=== PATIENT | male | born 1970 | race Caucasian/White ===

== ENCOUNTER 2018-10-01 15:55 | Emergency (ER) | payer MEDICAID, SELFPAY ==
[2018-10-01 16:06] VITALS: BP 121/79; PULSE 87; RESP 18; TEMP 36.9
--- NOTE | 2018-10-01 16:52 | W.ED.GENAD ---
Discharge Plan Disposition Patient Disposition: HOME Condition: Improving Discharge Details Chief Complaint: Laceration Clinical Impression: Laceration of right hand Reason For Visit: right hand LAC Primary Care Provider: Ira Pizarro ED Provider: Yuriy Schaefer Home Meds and New Rx's Prescriptions: Continue fluticasone-salmeterol [Advair Diskus] 250-50 mcg/dose blister with device 1 inh Inhalation BID Qty: 60 RF: 3 ipratropium-albuterol 0.5 mg-3 mg(2.5 mg base)/3 mL solution for nebulization 3 ml Inhalation Q4H PRN (Reason: shortness of breath or wheezing) Qty: 90 RF: 3 acetaminophen [Tylenol Extra Strength] 500 MG tablet 500 mg PO PRN RF: 0 albuterol sulfate [ProAir HFA] 8.5 GM HFA aerosol inhaler 2 puff Inhalation Q4H PRN 30 Days Qty: 1 RF: 11 nebulizers [Altera Nebulizer] 1 EACH misc 1 ea Miscellaneous PRN Qty: 1 RF: 0 ibuprofen [Advil] 200 MG tablet 800 mg PO PRN PRNRF: 0 Discharge Instructions Instructions: Laceration (ED) Additional Instructions: Keep bandage on for the next 48 hours and after then keep wound clean and dry. You may clean wound with mild soap and water and return in 10 days for suture removal. Return immediately to the emergency department for any signs of infection such as redness, purulent drainage, significant swelling. Referrals: [facility] Emergency Dept. [Outside] (Return to emergency department in 10 days for suture removal) Discharge Data Discharge Date/Time-TO BE ENTERED AT DEPARTURE: 10/01/18 17:24 Medical Decision Making Patient presenting to the emergency department for chief complaint of right hand laceration. Patient states that he was cleaning a metallic putty knife when he accidentally lacerated his right hand. Patient denies any other injury or trauma and states up-to-date tetanus. Tetanus status was verified and was up-to-date. Patient has normal function, sensation, cap refill and strength to the extremity and laceration appears just to be into the subcutaneous tissue with a moderate amount of bleeding but otherwise no other significant findings were noted. Patient gave verbal consent for laceration repair and see laceration note for procedure. Wound was explored to base in bloodless field and no evidence of foreign body was noted and copious irrigation was utilized. Which watch for any signs of infection and return immediately if these occur otherwise to follow-up for suture removal in 10 days. HPI General Mode of arrival: ambulatory. Date/Time Provider Initiated Documentation: 10/01/18 16:18. Limitations to Documentation: no limitations. Information obtained by: patient and RN notes reviewed. History of Present Illness 48 year old M presents to the emergency department with the chief complaint of right had laceration, described as moderate, with intensity rated at 7. Quality is described as sharp, and is localized to the right and upper extremity. Patient reports no radiation. Patient started experiencing this minute(s) (30) and it has been constant. No relieving factors improve symptom(s), No exacerbating factors reported . Patient notes no other symptoms.. Patient did receive the following treatments prior to arrival, none Related Data Home Medications Medication Instructions Recorded Confirmed ibuprofen [Advil] 800 mg PO PRN PRN 03/28/15 10/01/18 acetaminophen [Tylenol Extra 500 mg PO PRN 04/15/15 10/01/18 Strength] albuterol sulfate [ProAir HFA] 2 puff INHALATION Q4H PRN 30 Days 03/31/18 10/01/18 #1 inhaler nebulizers [Altera Nebulizer] #1 ea 05/19/18 08/18/18 fluticasone 250 mcg-salmeterol 50 1 inh INHALATION BID #60 each 07/14/18 10/01/18 mcg/dose blistr powdr for inhalation ipratropium-albuterol 0.5 mg-3 3 ml INHALATION Q4H PRN #90 ml 07/14/18 10/01/18 mg(2.5 mg base)/3 mL nebulization soln Previous Rx's Medication Instructions Recorded albuterol sulfate [ProAir HFA] 2 puff INHALATION Q4H PRN 30 Days 03/31/18 #1 inhaler nebulizers [Altera Nebulizer] #1 ea 05/19/18 fluticasone 250 mcg-salmeterol 50 1 inh INHALATION BID #60 each 07/14/18 mcg/dose blistr powdr for inhalation ipratropium-albuterol 0.5 mg-3 3 ml INHALATION Q4H PRN #90 ml 07/14/18 mg(2.5 mg base)/3 mL nebulization soln Allergies Allergy/AdvReac Type Severity Reaction Status Date / Time No Known Allergies Allergy Verified 10/01/18 16:10 General Stated Complaint: Laceration EDILIA: 3 Review of Systems Cardiovascular Denies syncope and Denies lightheadedness Musculoskeletal Denies deformity, Denies limited range of motion and Denies numbness Integumentary/Breasts Reports as per HPI Neurologic Denies syncope and Denies numbness PFSH COPD (chronic obstructive pulmonary disease) Tobacco use Family History Mother Hepatitis Substance abuse Father Lung disease Alcohol abuse left hand laceration (05/20/79) Family History Mother Hepatitis Substance abuse Father Lung disease Alcohol abuse Medical History COPD (chronic obstructive pulmonary disease) Tobacco use Social History adopted: No foster care: No housing: house lives independently: Yes number of children: 2 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, 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 pets and animals: Yes pets and animals: cat(s) Smoking/Tobacco Use Status: Current-Occasional tobacco type: cigarettes alcohol intake: current alcohol intake frequency: holidays/special occasions only Alcohol type: hard liquor substance use type: marijuana seatbelt use: always working smoke detector in home: Yes fire extinguisher in home: Yes carbon monox detector in home: No Surgical History left hand laceration (05/20/79) Social History adopted: No foster care: No housing: house lives independently: Yes number of children: 2 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, 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 pets and animals: Yes pets and animals: cat(s) Smoking/Tobacco Use Status: Current-Occasional tobacco type: cigarettes alcohol intake: current alcohol intake frequency: holidays/special occasions only Alcohol type: hard liquor substance use type: marijuana seatbelt use: always working smoke detector in home: Yes fire extinguisher in home: Yes carbon monox detector in home: No Exam Const General: cooperative and no acute distress Orientation: alert, awake and oriented x3 Limitations: mental status not altered Resp Effort & Inspection: normal respiratory effort and able to speak in complete sentences Cardio Rate: regular rate Rhythm: regular rhythm Neuro General: alert, awake, oriented x3, gait normal, tone normal, moves all extremities, normal light touch, pain and propioception and no focal motor deficits Motor: no movement abnormalities noted Sensory Exam: no sensory deficits noted Extrem General: normal exam except as noted Right upper extremity: hand Details: normal capillary refill, neuromotor exam normal, neurosensory exam normal, tendon exam normal, normal ROM of fingers, no swelling and laceration (Dorsal aspect in between thumb and second metacarpal); no foreign bodies Course Vital Signs Temperature 36.9 C 10/01/18 16:06 Pulse 87 10/01/18 16:06 Respiratory Rate 18 10/01/18 16:06 Blood Pressure 121/79 10/01/18 16:06 Temperature 36.9 C 10/01/18 16:06 Temperature Source Temporal Artery Scan 10/01/18 16:06 Pulse 87 10/01/18 16:06 Respiratory Rate 18 10/01/18 16:06 Blood Pressure 121/79 10/01/18 16:06 Blood Pressure Position Sitting 10/01/18 16:06 Oxygen Delivery Method Room Air 10/01/18 16:06 Oxygen Flow Rate 0 10/01/18 16:06 Pain Level 3 10/01/18 16:06 Procedures Laceration Laceration 1: Site: hand Side (If applicable): right Size (cm): 3 Description: linear Depth: simple, single layer Local Anesthetic: Lidocaine 1% Amount of anesthesia used (mL): 5 Pre-repair: wound explored, irrigated extensively and deep structures intact Skin layer closed with: nylon Size (cm): 4-0 Number of sutures: 4 Technique: simple, interrupted
== END 2018-10-01 17:24 | disposition home or self-care (01) ==
LOC: ER 17:41
PROVIDERS: Emergency Provider Nurse Practitioner Family; PCP Nurse Practitioner Family
DX: S61.411A Laceration without foreign body of right hand, initial encounter (principal); W26.0XXA Contact with knife, initial encounter; J44.9 Chronic obstructive pulmonary disease, unspecified; F17.210 Nicotine dependence, cigarettes, uncomplicated
CPT/HCPCS: 12002

== ENCOUNTER 2018-10-11 14:01 | Emergency (ER) | payer MEDICAID, SELFPAY ==
[2018-10-11 14:10] VITALS: BP 127/64; PULSE 85; RESP 14; TEMP 37.1; O2SAT 95
--- NOTE | 2018-10-11 14:23 | ED.GENADUL_ITS ---
Discharge Plan Disposition Patient Disposition: HOME Condition: Good Discharge Details Chief Complaint: SutureRem Clinical Impression: Visit for suture removal Primary Care Provider: Ira Pizarro ED Provider: Rosalio Rudolph Home Meds and New Rx's Prescriptions: No Action fluticasone-salmeterol [Advair Diskus] 250-50 mcg/dose blister with device 1 inh Inhalation BID Qty: 60 RF: 3 ipratropium-albuterol 0.5 mg-3 mg(2.5 mg base)/3 mL solution for nebulization 3 ml Inhalation Q4H PRN (Reason: shortness of breath or wheezing) Qty: 90 RF: 3 acetaminophen [Tylenol Extra Strength] 500 MG tablet 500 mg PO PRN RF: 0 albuterol sulfate [ProAir HFA] 8.5 GM HFA aerosol inhaler 2 puff Inhalation Q4H PRN 30 Days Qty: 1 RF: 11 nebulizers [Altera Nebulizer] 1 EACH misc 1 ea Miscellaneous PRN Qty: 1 RF: 0 ibuprofen [Advil] 200 MG tablet 800 mg PO PRN PRNRF: 0 Discharge Instructions Instructions: Care For Your Stitches (ED) Additional Instructions: Please come back in the next 4-5 days for reevaluation and reassessment for potential suture removal. If you notice any significant redness, drainage, fever chills, pain, or swelling please return immediately for reevaluation. Please continue to keep the area dry and clean. Please keep the bandage at all times. Referrals: Ira Pizarro, [employer] [Primary Care Provider] - Medical Decision Making This is a 48-year-old male with a past medical history of COPD, no history of diabetes who presents for laceration/suture removal. He had 4 sutures placed 10 days ago, since then he has been doing well. He denies any redness, fever or chills, he did have a minimal amount of drainage that he was able to squeeze out yesterday, but none since then. He denies any pain, physical exam demonstrates normal strength and sensation and movement. Unfortunately for 3 of the distal sutures he does show evidence of a lack of complete wound edge reapproximation. There is certainly close together however they do not appear to be completely recently to 5. We will keep the sutures in at this time. There is no evidence of infection, no fluctuance, no purulent dis charge at this time and with no surrounding erythema I do not think that there is an indication for antibiotics. We did a apply Steri-Strips for continued wound support between the sutures. We discussed red flags which to return including the importance of following up in the next 4-5 days back here in the ED for removal of sutures. I have extensively reviewed the treatment plan and discharge instructions with the patient. I have addressed all patient concerns at this time. The patient was made aware of what symptoms to monitor for that would warrant a return to the emergency department. Discussed the plan with the patient, they demonstrate verbal understanding and agreement with our assessment and plan at this time. HPI General Date/Time Provider Initiated Documentation: 10/11/18 14:06 . HPI Narrative: This is a 48-year-old male with a past medical history of COPD, who presents today for evaluation of suture removal. 10 days ago the patient cut his right dominant hand over the thenar eminence on the dorsal aspect. Tetanus is up-to-date. 4 simple interrupted sutures are placed is instructed to come back for reevaluation in 7-10 days. It is been 10 days, and he is coming in for reevaluation. The patient did notice a very small amount of purulent drainage that he was able to exude from the proximal component, but denies any redness, fever chills, or pain. He has had no drainage since then. 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 Patient denies any other aggravating or modifying factors. He has no other complaints at this time. Related Data Home Medications Medication Instructions Recorded Confirmed ibuprofen [Advil] 800 mg PO PRN PRN 03/28/15 10/01/18 acetaminophen [Tylenol Extra 500 mg PO PRN 04/15/15 10/01/18 Strength] albuterol sulfate [ProAir HFA] 2 puff INHALATION Q4H PRN 30 Days 03/31/18 10/01/18 #1 inhaler nebulizers [Altera Nebulizer] #1 ea 05/19/18 08/18/18 fluticasone 250 mcg-salmeterol 50 1 inh INHALATION BID #60 each 07/14/18 10/01/18 mcg/dose blistr powdr for inhalation ipratropium-albuterol 0.5 mg-3 3 ml INHALATION Q4H PRN #90 ml 07/14/18 10/01/18 mg(2.5 mg base)/3 mL nebulization soln Previous Rx's Medication Instructions Recorded albuterol sulfate [ProAir HFA] 2 puff INHALATION Q4H PRN 30 Days 03/31/18 #1 inhaler nebulizers [Altera Nebulizer] #1 ea 05/19/18 fluticasone 250 mcg-salmeterol 50 1 inh INHALATION BID #60 each 07/14/18 mcg/dose blistr powdr for inhalation ipratropium-albuterol 0.5 mg-3 3 ml INHALATION Q4H PRN #90 ml 07/14/18 mg(2.5 mg base)/3 mL nebulization soln Allergies Allergy/AdvReac Type Severity Reaction Status Date / Time No Known Allergies Allergy Verified 10/01/18 16:10 General Stated Complaint: SutureRem EDILIA: 5 Review of Systems Review of Systems All systems reviewed & are unremarkable except as noted in HPI and below PFSH Social History adopted: No foster care: No housing: house lives independently: Yes number of children: 2 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 3.ENT: Atraumatic external nose and ears. Moist MM. Neck: Symmetric, trachea midline, No thyromegaly. 4.CVS: +S1/S2, No murmurs or gallops. Peripheral pulses 2+ and equal in all extremities. Brisk capillary refill in all extremities. 5.RESP: Unlabored respiratory effort. Clear to auscultation bilaterally. No wheezes rales or rhonchi 6.GI: Soft, Nontender/Nondistended, No hepatosplenomegaly. No guarding or rebound. 7.MSK: Normocephalic/Atraumatic, Extremities w/o deformity or ttp No cyanosis or clubbing, Normal movement of all extremities. Normal strength for the thumb in abduction abduction flexion extension. Normal pincer yarn dumper. 8.Skin: Warm, Dry. No rashes or lesions. Patient's previous laceration site appears to be well healing. Therefore simple interrupted sutures in place. One single suture was removed, for the other 3 there appears to be a lack of complete wound edge reapproximation and adhesion. Minimal laxity is still present. We will hold off on removing the sutures. 9.Neuro: credit charge authorizer II-XII grossly intact. Sensation grossly intact, no focal neurologic deficits. Patient demonstrates good two-point discrimination distal to the laceration, no evidence of abnormality, or deficit. 10.Psych: (AAO) x3. Appropriate mood and affect Course Vital Signs Temperature 37.1 C 10/11/18 14:10 Pulse 85 10/11/18 14:10 Respiratory Rate 14 10/11/18 14:10 Blood Pressure 127/64 10/11/18 14:10 Pulse Oximetry 95 10/11/18 14:10 Temperature 37.1 C 10/11/18 14:10 Temperature Source Temporal Artery Scan 10/11/18 14:10 Pulse 85 10/11/18 14:10 Respiratory Rate 14 10/11/18 14:10 Respiratory Effort Non-Labored 10/11/18 14:14 Blood Pressure 127/64 10/11/18 14:10 Blood Pressure Position Sitting 10/11/18 14:10 Pulse Oximetry 95 10/11/18 14:10 Oxygen Delivery Method Room Air 10/11/18 14:10 Oxygen Flow Rate 0 10/11/18 14:10 Pain Level 0 10/11/18 14:10
== END 2018-10-11 14:26 | disposition home or self-care (01) ==
PROVIDERS: Emergency Provider Student in an Organized Health Care Education/Training Program; PCP Nurse Practitioner Family
DX: S61.411D Laceration without foreign body of right hand, subsequent encounter (principal); W26.0XXD Contact with knife, subsequent encounter; J44.9 Chronic obstructive pulmonary disease, unspecified
CPT/HCPCS: 99282

== ENCOUNTER 2018-10-15 17:00 | Emergency (ER) | payer MEDICAID, SELFPAY ==
[2018-10-15 17:14] VITALS: BP 112/76; PULSE 74; RESP 16; TEMP 36.7; O2SAT 99
--- NOTE | 2018-10-15 17:36 | W.ED.GENAD ---
Discharge Plan Disposition Patient Disposition: HOME Condition: Good Discharge Details Chief Complaint: SutureRem Clinical Impression: Encounter for removal of sutures Primary Care Provider: Ira Pizarro ED Provider: Eva Aviles Home Meds and New Rx's Prescriptions: Continued Advair Diskus 250-50 mcg/dose blister with device 1 inh Inhalation BID Qty: 60 RF: 3 ipratropium-albuterol 0.5 mg-3 mg(2.5 mg base)/3 mL solution for nebulization 3 ml Inhalation Q4H PRN (Reason: shortness of breath or wheezing) Qty: 90 RF: 3 acetaminophen [Tylenol Extra Strength] 500 MG tablet 500 mg PO PRN RF: 0 ProAir HFA 8.5 GM HFA aerosol inhaler 2 puff Inhalation Q4H PRN 30 Days Qty: 1 RF: 11 nebulizers [Altera Nebulizer] 1 EACH misc 1 ea Miscellaneous PRN Qty: 1 RF: 0 ibuprofen [Advil] 200 MG tablet 800 mg PO PRN PRNRF: 0 Discharge Instructions Instructions: Laceration (ED) Additional Instructions: Keep wound clean, dry, covered. Tylenol and/or ibuprofen as needed for discomfort. Continue to monitor for signs of infection including redness, warmth, drainage, increased pain, discharge. If these arise please seek care urgently once again. Referrals: Ira Pizarro NP [Primary Care Provider] - Discharge Data Discharge Date/Time-TO BE ENTERED AT DEPARTURE: 10/15/18 17:49 Medical Decision Making Patient 48-year-old [id number] male presenting today for chief complaint suture removal. He was seen here a few days ago for suture removal at which time the wound was not healed enough to be able to allow this to occur. However, since then he has been following the instructions wound appears much improved. I do not see any signs of infection. No erythema, warmth or drainage. #[address] Wound edges reapproximated well. His stitches are easily removed by myself. Given the patient to sit for work, I have asked nursing staff to reinforce with Steri-Strips and Band-Aid. Advised on wound care with the patient. We discussed new/worsening symptoms and when to seek care urgently once again. Otherwise, patient will follow-up with primary care as needed. HPI General Mode of arrival: ambulatory. Date/Time Provider Initiated Documentation: 10/15/18 17:10. Limitations to Documentation: no limitations. Information obtained by: patient. History of Present Illness 48 year old M presents to the emergency department with the chief complaint of suture removal, Patient reports no radiation. Patient started experiencing this week(s) and it has been now resolved. Patient notes denies fever/chills and rash. Related Data Home Medications Medication Instructions Recorded Confirmed ibuprofen [Advil] 800 mg PO PRN PRN 03/28/15 10/15/18 acetaminophen [Tylenol Extra 500 mg PO PRN 04/15/15 10/15/18 Strength] ProAir HFA 2 puff INHALATION Q4H PRN 30 Days 03/31/18 10/15/18 #1 inhaler nebulizers [Altera Nebulizer] #1 ea 05/19/18 08/18/18 fluticasone 250 mcg-salmeterol 50 1 inh INHALATION BID #60 each 07/14/18 10/15/18 mcg/dose blistr powdr for inhalation ipratropium-albuterol 0.5 mg-3 3 ml INHALATION Q4H PRN #90 ml 07/14/18 10/15/18 mg(2.5 mg base)/3 mL nebulization soln Previous Rx's Medication Instructions Recorded ProAir HFA 2 puff INHALATION Q4H PRN 30 Days 03/31/18 #1 inhaler nebulizers [Altera Nebulizer] #1 ea 05/19/18 fluticasone 250 mcg-salmeterol 50 1 inh INHALATION BID #60 each 07/14/18 mcg/dose blistr powdr for inhalation ipratropium-albuterol 0.5 mg-3 3 ml INHALATION Q4H PRN #90 ml 07/14/18 mg(2.5 mg base)/3 mL nebulization soln Allergies Allergy/AdvReac Type Severity Reaction Status Date / Time No Known Allergies Allergy Verified 10/01/18 16:10 General Stated Complaint: SutureRem EDILIA: 5 Review of Systems Constitutional Reports as per HPI, Denies chills, Denies fever(s) and Denies weakness Musculoskeletal Reports as per HPI and Denies tingling Integumentary/Breasts Reports as per HPI Neurologic Denies tingling and Denies weakness COUNT INCLUDES THE [facility] Medical History COPD (chronic obstructive pulmonary disease) Tobacco use Surgical History left hand laceration (05/20/79) Social History adopted: No foster care: No housing: house lives independently: Yes number of children: 2 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, 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 pets and animals: Yes pets and animals: cat(s) Smoking/Tobacco Use Status: Current-Occasional tobacco type: cigarettes alcohol intake: current alcohol intake frequency: holidays/special occasions only Alcohol type: hard liquor substance use type: marijuana seatbelt use: always working smoke detector in home: Yes fire extinguisher in home: Yes carbon monox detector in home: No Exam Const General: cooperative, healthy appearing, comfortable, no acute distress and well developed Nutritional Appearance: average body habitus and well nourished Orientation: alert and awake Resp Effort & Inspection: normal respiratory effort, able to speak in complete sentences and no respiratory distress Cardio Rate: regular rate Rhythm: regular rhythm Skin Trauma: laceration (right hand, appears to be healing well, no signs of infection) Neuro General: alert and awake Cognition: normal cognition Speech: speech normal Gait: normal gait Motor: muscle tone normal throughout Extrem Right upper extremity: full ROM, normal capillary refill and no joint enlargement; abnormal to inspection (laceration to dorsal radial side of hand, healing well) Psych Appearance: grossly normal and well kempt Mental Status: mental status grossly normal Speech and Movement: speech and movement normal Course Vital Signs Temperature 36.7 C 10/15/18 17:14 Pulse 74 10/15/18 17:14 Respiratory Rate 16 10/15/18 17:14 Blood Pressure 112/76 10/15/18 17:14 Pulse Oximetry 99 10/15/18 17:14 Temperature 36.7 C 10/15/18 17:14 Temperature Source Temporal Artery Scan 10/15/18 17:14 Pulse 74 10/15/18 17:14 Respiratory Rate 16 10/15/18 17:14 Respiratory Effort 10/15/18 17:18 Blood Pressure 112/76 10/15/18 17:14 Pulse Oximetry 99 10/15/18 17:14 Oxygen Delivery Method Room Air 10/15/18 17:14 Oxygen Flow Rate 0 10/15/18 17:14 Pain Level 0 10/15/18 17:14
== END 2018-10-15 17:49 | disposition home or self-care (01) ==
PROVIDERS: Emergency Provider Emergency Medicine; PCP Nurse Practitioner Family
DX: Z48.02 Encounter for removal of sutures (principal); S61.411D Laceration without foreign body of right hand, subsequent encounter; W26.8XXD Contact with other sharp object(s), not elsewhere classified, subsequent encounter

== ENCOUNTER 2019-08-06 13:34 | Outpatient (CLI) | payer MEDICAID, SELFPAY ==
--- NOTE | 2019-08-06 13:45 | DI.RAD_ITS ---
EXAM: XR CHEST 2V PA LATERAL INDICATION: Likely influenza, rule out pneumonia, J11.1. COMPARISON: CHEST 2 VIEWS PA,LAT from 05/16/2015 TECHNIQUE: 2D digital imaging was performed. FINDINGS: The cardiac and mediastinal contours have a normal appearance. Lungs are hyperinflated. No infiltr ate, effusion or pulmonary edema is seen. The spine is unremarkable. IMPRESSION: Emphysematous changes. No acute abnormality.
== END 2019-08-06 13:54 ==
PROVIDERS: PCP Family Medicine; Visit Provider Family Medicine
DX: J11.1 Influenza due to unidentified influenza virus with other respiratory manifestations (principal); J43.8 Other emphysema
CPT/HCPCS: 71046

== ENCOUNTER 2019-09-04 02:52 | Outpatient (CLI) | payer OTHER, MEDICAID, SELFPAY ==
[2019-09-04] MEDS: Albuterol HFA 18 GM 200 PUFF INH IH (10:29)
[2019-09-04] MEDS: Inhaler, Assist Device 1 EACH MC (10:29)
== END 2019-09-04 03:12 ==
PROVIDERS: PCP Family Medicine; Visit Provider Pediatrics Pediatric Rheumatology
DX: J44.9 Chronic obstructive pulmonary disease, unspecified (principal)
CPT/HCPCS: 94060; 94200; 94729

== ENCOUNTER 2020-04-08 04:05 | Outpatient (CLI) | payer MEDICAID, SELFPAY ==
[2020-04-08 14:03] LABS: ALT 27 U/L (16-63); AST 25 U/L (15-37); Albumin 3.8 g/dL (3.4-5.0); Alkaline Phosphatase 50 U/L (46-116); Anion Gap 7.4 mmol/L (3-11); BUN 16 mg/dL (7-18); Bilirubin, Total 0.4 mg/dL (0.2-1.0); CO2 28.6 mmol/L (21.0-32.0); CREATININE 1.04 mg/dL (0.70-1.30); Calcium 8.8 mg/dL (8.5-10.1); Calculated LDL 150 mg/dL (<100); Chloride 102 mmol/L (98-107); Cholesterol 210 mg/dL (<200); Glucose 89 mg/dL (74-106); HDL Cholesterol 45 mg/dL (40-60); Potassium 4.6 mmol/L (3.5-5.1); Sodium 138 mmol/L (136-145); Triglyceride 79 mg/dL (<150)
== END 2020-04-08 04:25 ==
PROVIDERS: PCP Family Medicine; Visit Provider Family Medicine
DX: R63.4 Abnormal weight loss (principal); Z13.220 Encounter for screening for lipoid disorders
CPT/HCPCS: 36415; 80053; 80061

== ENCOUNTER 2020-07-19 07:11 | Outpatient (CLI) | payer MEDICAID, SELFPAY ==
[2020-07-20 13:13] LABS: COVID-19 RT-PCR Result NEGATIVE (Negative)
== END 2020-07-19 07:31 ==
PROVIDERS: Physical Therapy Assistant; PCP Family Medicine; Visit Provider Surgery
DX: Z11.59 Encounter for screening for other viral diseases (principal); Z01.818 Encounter for other preprocedural examination
CPT/HCPCS: U0003

== ENCOUNTER 2020-07-22 09:55 | Day surgery (SDC) | payer MEDICAID, SELFPAY ==
[2020-07-22 10:08] VITALS: BP 123/79; PULSE 98; RESP 16; TEMP 36.7; O2SAT 96
[2020-07-22] MEDS: Lactated Ringers 1,000 ML 80 ML IV (10:26)
--- NOTE | 2020-07-22 11:10 | W.PM.DSUDISC ---
Discharge Plan Disposition Patient Disposition: HOME Condition: Good Discharge Details Reason For Visit: Colonoscopy Attending Provider: Afua Roland Primary Care Provider: Darell Ivan Home Meds and New Rx's Prescriptions: Continued ipratropium-albuterol 0.5 mg-3 mg(2.5 mg base)/3 mL solution for nebulization 3 ml Inhalation Q4H PRN (Reason: shortness of breath or wheezing) Qty: 90 RF: 3 montelukast [Singulair] 10 mg tablet 10 mg PO DAILY Qty: 90 RF: 3 albuterol sulfate [ProAir HFA] 90 mcg/actuation HFA aerosol inhaler 2 puff Inhalation Q4H PRN 30 Days Qty: 1 RF: 11 Spiriva with HandiHaler 18 mcg capsule, w/inhalation device 1 cap IH DAILY Qty: 30 RF: 11 fluticasone propion-salmeterol [Advair Diskus] 250-50 mcg/dose blister with device 1 inh Inhalation BID Qty: 60 RF: 11 atorvastatin 40 mg tablet 40 mg PO DAILY Qty: 90 RF: 3 (DME) Altera Nebulizer 1 EACH misc 1 ea Miscellaneous PRN Qty: 1 RF: 0 ibuprofen [Advil] 200 MG tablet 800 mg PO PRN PRNRF: 0 Discharge Instructions Additional Instructions: Findings: Your colonoscopy was normal. Follow up: Plan for routine screening colonoscopy in 10 years or sooner if symptoms arise. Please call if you develop: fevers >101.5 Nausea or Vomiting Abdominal pain that is not transient DAY SURGERY UNIT POST COLONOSCOPY INSTRUCTIONS 1. Because there will be medication in your system for the next 24 hours, you may feel a little sleepy. Your coordination will be affected. Therefore: a. Do not drive or operate dangerous equipment for 24 hours. b. Do not drink alcohol beverages for 24 hours (not even beer). c. Plan to go home and rest for the day. 2. Generally there are no restrictions on your activity after a day or so has gone by, but you may feel a bit fatigued for a few days. 3 After you arrive home you may have a light meal and return to a normal diet as you can tolerate it without feeling sick to your stomach. 4. After surgery, you may feel pain or discomfort. This should be only transient, but if it persists please contact your doctor. 5. If there are any questions regarding the findings of your procedure, please feel free to contact your doctor. 6. If you are unable to contact your doctor with a problem, contact the hospital at [phone]. 7. Continue all your regular medications unless directed otherwise. I understand the above instructions and have no questions. Signature of Patient or Responsible Adult Escort Date/Time Name of Responsible Adult Escort Signature of Nurse Date/Time Activity:: Activity as Tolerated Diet:: As Tolerated Discharge Orders Discharge Orders: Discharge Order (Routine); Ordered 07/22/20 Ordered By: Afua Roland DS: Diagnosis Discharge Diagnosis (1) Normal colonoscopy: Status: Acute
--- NOTE | 2020-07-22 11:11 | COLE_ITS ---
Date of service: 07/22/20 Time of Service: 11:49 Colonoscopy Report Date of procedure: 07/22/20 Pre-op diagnosis general: Screening Post-op diagnosis procedure note: other (Normal colon) Procedure: Colonoscopy Surgeon: Afua Roland Anesthesia proc note operative: MAC Indications: This 50 year old man presents for his first screening colonoscopy. He notes weight loss but no GI symptoms. No FH colon cancer. Procedure Description: The patient was placed in the left Wing position. Propofol was titrated to sedation. Digital rectal examination revealed no abnormalities. The scope was advanced to the cecum without difficulty. The ileocecal valve and appendiceal orifice were clearly identified. The prep was good. The scope was slowly withdrawn over the course of greater than 6 minutes with no abnormalities seen in the ascending, transverse, descending, sigmoid col on or rectum including on retroflexed view. The patient tolerated the procedure well and was stable to recovery. Plan for routine screening colonoscopy in 10 years or sooner if symptoms indicate.
[2020-07-22 12:13] VITALS: BP 108/64; PULSE 68; RESP 16; TEMP 36.6; O2SAT 98
== END 2020-07-22 12:32 | disposition home or self-care (01) ==
PROVIDERS: PCP Family Medicine; Visit Provider Surgery
PROC: 0DJD8ZZ Inspection of Lower Intestinal Tract, Via Natural or Artificial Opening Endoscopic (ICD-10-PCS; CPT 45378; principal; 2020-07-22 11:30)
DX: Z12.11 Encounter for screening for malignant neoplasm of colon (principal)
CPT/HCPCS: 45378

== ENCOUNTER → 2022-08-02 02:00 | Outpatient (CLI) | payer MEDICAID, SELFPAY ==
--- NOTE | 2022-08-02 08:00 | DI.US_ITS ---
Exam(s) US CAROTID EXAM: US CAROTID CLINICAL HISTORY: Several syncopal episodes in the past year R55. SYNCOPE AND COLLAPSE. TECHNIQUE: Ultrasound carotids performed using grayscale, color-flow, and spectral Doppler imaging. COMPARISON: No exams were available for comparison FINDINGS: RIGHT CAROTID ARTERY: Plaque: None Velocity elevation: None. LEFT CAROTID ARTERY: Plaque: None Velocity elevation: None. VERTEBRAL ARTERIES: Antegrade flow. Measurements: R Bulb: 102.4cm/s PS / 29.7cm/s ED R CCA: 100.3cm/s PS / 30.5cm/s ED R ECA: 99.3cm/s PS / 26.3cm/s ED R ICA Prox: 60.4cm/s PS / 29.8cm/s ED R ICA Mid: 96.2cm/s PS / 46.1cm/s ED R ICA Distal: 75.6cm/s PS /32.4cm/s ED R Vert: 57.5cm/s PS / 18.5cm/s ED R SVR: 1 R DVR: 1.5 L Bulb: 126.1cm/s PS / 36.9cm/s ED L CCA: PS / 34.1cm/s ED L ECA: 92.3cm/s PS / 19.9cm/s ED L ICA Prox: 73cm/s PS / 25.2cm/s ED L ICA Mid: 97.7cm/s PS / 40.7cm/s ED L ICA Distal: 73.1cm/s PS / 33.3cm/s ED L Vert: 42.9cm/s PS / 17.6cm/s ED L SVR: 1 L DVR: 1.2 IMPRESSION: No evidence for hemodynamically significant carotid stenosis. Criteria for Carotid Stenosis: Normal: ICA PSV <125 cm/s no plaque or intimal thickening is visible. <50% stenosis: ICA PSV <125 cm/s and plaque or intimal thickening is visible. 50-69% stenosis: ICA PSV is 125-250 cm/s and plaque is visible. >70% stenosis to near occlusion: ICA PSV >250 cm/s with visible plaque and luminal narrowing. DATA REPOSITORY:
== END ==
PROVIDERS: PCP Family Medicine; Visit Provider Family Medicine
DX: R55 Syncope and collapse (principal)
CPT/HCPCS: 93880

== ENCOUNTER → 2022-08-17 00:52 | Outpatient (CLI) | payer MEDICAID, SELFPAY ==
--- NOTE | 2022-08-17 08:30 | DI.CTLCSR_ITS ---
Exam(s) CT CHEST LUNG CANCER SCREEN EXAM: CT CHEST LUNG CANCER SCREEN CLINICAL HISTORY: Screening for lung cancer,former smoker, z87.891 TECHNIQUE: Imaging Protocol: Axial computed tomography images with coronal and sagittal reformatted images were created and reviewed COMPARISON: No exams were available for comparison FINDINGS: Tracheobronchial tree: Patent where visualized. Pulmonary parenchyma: No consolidation or dominant measurable mass. Marked emphysematous changes are present in the lungs. Lung Nodules: There is a 9 mm nodule in the right upper lobe. Mediastinum and Becki: No dominant adenopathy or fluid collection. The esophagus is unremarkable. Thyroid gland: Unremarkable. Lymph nodes: Unremarkable. Pleura: No effusion or pneumothorax. Heart: The heart is not dilated. Moderate coronary artery calcification is present. No pericardial ef fusion. Aorta: Thoracic aorta non-dilated.Atherosclerosis is present. Upper abdomen: Unremarkable. Soft Tissues: Unremarkable. Bones: Within normal limits. IMPRESSION: 9 mm right upper lobe pulmonary nodule. Lung RADS Cat 4A - Suspicious: Findings for which additional diagnostic testing and/or tissue samplin g recommended Lung-RADS 1.0 CATEGORIES: Category 0 - Prior chest CT exam(s) being located for comparison. Category 1 - Annual screening in 12 months. No nodules or definitely benign nodules. Category 2 - Annual screening in 12 months. Benign appearance. Nodules with low likelihood of becomin g active cancer. Category 3 - 6-month follow-up. Probably benign. Short-term follow-up suggested. Nodules with low lik elihood of becoming active cancer. Category 4A - 3-month follow-up and CT/PET if >8 mm in size. Suspicious finding. Findings which requi re additional testing. Category 4B - Findings which require additional testing and tissue sampling. Suspicious finding. Category 4X - Category 3 or 4 nodules with additional features or imaging findings that increases the suspicion of malignancy. Modifier S- Potentially clinically significant finding. (Non lung cancer) RADIATION DOSE DELIVERED: 86.72mGy.cm Total DLP 1.84mGy!Error CTDIvol 86.72mGy.cm Total DLP 1.84mGy!Error CTDIvol DATA REPOSITORY: All CT scans at this facility are submitted to the National Radiology Data Registry (NRDR) Dose Index Registry (DIR) with the [employer] (ACR). RADIATION OPTIMIZATION: All CT scans at this facility use at least one of these dose optimization te chniques: automated exposure control; mA and/or kV adjustment per patient size (includes targeted exa ms where dose is matched to clinical indication); or iterative reconstruction.
== END ==
PROVIDERS: PCP Family Medicine; Visit Provider Family Medicine
DX: Z87.891 Personal history of nicotine dependence (principal); Z12.2 Encounter for screening for malignant neoplasm of respiratory organs; R91.1 Solitary pulmonary nodule
CPT/HCPCS: 71271

== ENCOUNTER 2022-12-03 00:17 | Outpatient (CLI) | payer MEDICAID, SELFPAY ==
--- NOTE | 2022-12-03 07:45 | DI.CT_ITS ---
Exam(s) CT CHEST WO EXAM: CT CHEST WO CLINICAL HISTORY: 3 month f/u on nodule,r91.8,abnl ct TECHNIQUE: Imaging Protocol: Axial computed tomography images with coronal and sagittal reformatted images were created and reviewed CONTRAST MATERIAL: Intravenous: Omnipaque 350 Contrast volume:structured data ml. COMPARISON: CR XR CHEST 2V PA LATERAL from 08/06/[address] CHEST LUNG CANCER SCREEN from 08/17/2022 FINDINGS: Pulmonary parenchyma: No consolidation. Severe emphysematous changes. Mild interval decrease in pro minence of previously noted nodule in the right upper lobe measuring 7 x 7 millimeters. Stable area scarring versus nodularity seen superior to that level, unchanged. No new nodules. Tracheobronchial tree: No bronchiectasis or mucous plugging. Mediastinum and Becki: No dominant adenopathy or fluid collection. Pleura: No effusion or pneumothorax. Heart: The heart is not dilated. coronary artery calcifications are seen. Aorta: Thoracic aorta non-dilated. Upper abdomen: Unremarkable. Bones: Minimaldegenerative changes. Soft tissues: Unremarkable. IMPRESSION: Slight interval decrease in prominence of previously noted nodule in the right upper lobe. Further t hree-month follow-up CT recommended. RADIATION DOSE DELIVERED: 391.22mGy.cm Total DLP DATA REPOSITORY: All CT scans at this facility are submitted to the National Radiology Data Registry (NRDR) Dose Index Registry (DIR) with the [employer] ([employer]). RADIATION OPTIMIZATION: All CT scans at this facility use at least one of these dose optimization te chniques: automated exposure control; mA and/or kV adjustment per patient size (includes targeted exa ms where dose is matched to clinical indication); or iterative reconstruction.
== END 2022-12-03 00:37 ==
LOC: DI 00:17
PROVIDERS: PCP Family Medicine; Visit Provider Family Medicine
DX: R91.8 Other nonspecific abnormal finding of lung field (principal)
CPT/HCPCS: 71250

== ENCOUNTER → 2023-09-19 01:28 | Outpatient (CLI) | payer MEDICAID, SELFPAY ==
--- NOTE | 2023-09-19 08:00 | DI.CT_ITS ---
Exam(s) CT CHEST WO EXAM: CT CHEST WO CLINICAL HISTORY: 3 month follow up,R91.1,PULMONARY NODULE,Z87.891. TECHNIQUE: Multi planar reconstructions were performed. CONTRAST MATERIAL: None COMPARISON: CT CT CHEST LUNG CANCER SCREEN from 08/17/[address] CHEST WO from 12/03/2022 FINDINGS: CHEST: LUNGS: No focal left lung findings. In the right lung the 2 right upper lobe nodular densities are u nchanged from 12/03/2022. The smaller more superior nodule appears to contain a small calcification therein. The slightly larger right upper no nodule remains unchanged. There are no new right lung n odules and no pleural effusions. No findings in the trachea and mainstem bronchi. COPD emphysematou s changes again noted. MEDIASTINUM: No new hilar nor mediastinal adenopathy. Visualized thyroid unremarkable.No obvious axi llary adenopathy CARDIAC: Heart size is normal. There is no pericardial effusion.Caliber of the thoracic aorta is wit hin normal limits. VISUALIZED UPPER ABDOMEN:Small sub cm hypodensity in the right hepatic lobe is unchanged and probably benign cyst or hemangioma. OSSEOUS: No significant osseous lesions.No fractures.. IMPRESSION: 1. Stable appearance of 2 right upper lobe nodular densities when compared to 12/03/2022. No new nod ules in either lung field. 2. No pleural effusions nor intrathoracic adenopathy. 3. Recommend repeat CT scan in 6 months RADIATION DOSE DELIVERED: Total DLP DATA REPOSITORY: All CT scans at this facility are submitted to the National Radiology Data Registry (NRDR) Dose Index Registry (DIR) with the [employer] (A[employer]). RADIATION OPTIMIZATION: All CT scans at this facility use at least one of these dose optimization te chniques: automated exposure control; mA and/or kV adjustment per patient size (includes targeted exa ms where dose is matched to clinical indication); or iterative reconstruction.
== END ==
PROVIDERS: PCP Family Medicine; Visit Provider Family Medicine
DX: R91.1 Solitary pulmonary nodule (principal); Z87.891 Personal history of nicotine dependence; Z12.2 Encounter for screening for malignant neoplasm of respiratory organs
CPT/HCPCS: 71250

== ENCOUNTER 2024-04-04 10:21 | Observation (INO) | payer MEDICAID, SELFPAY ==
[2024-04-04] VITALS (37 sets, daily range): BP systolic 106–148; BP diastolic 59–102; PULSE 83–135; RESP 5–34; TEMP 36.2–38; O2SAT 84–100
--- NOTE | 2024-04-04 | DI.CT_ITS ---
Exam(s) CT CHEST W EXAM: CT CHEST W CLINICAL HISTORY: difficulty breathing/ hx lung nodules TECHNIQUE: Imaging Protocol: Axial computed tomography images with coronal and sagittal reformatted images were created and reviewed CONTRAST MATERIAL: Intravenous: Omnipaque 350Contrast volume:70 mL. COMPARISON: CT CT CHEST WO from 09/19/2023 CR,XR XR PORTABLE CHEST AP from 04/04/2024 FINDINGS: Tracheobronchial tree: Patent where visualized. Pulmonary parenchyma: Marked centrilobular emphysematous changes are present. There are new pulmonar y nodules. There is a 9 mm pulmonary nodule in the anterior aspect of the left upper lobe (series 3, image 210). There is a new 6 mm nodule in the periphery of the left upper lobe (series 3, image 175 ). There is a nodular opacity seen in the left perihilar region measuring 2.2 x 1.9 cm. This corres ponds to the finding seen on the chest x-ray examination (series 3, image 216). There is a calcified nodule again seen in the right upper lobe (series 3, image 219). There is a spiculated 1.3 x 1.5 cm partially calcified nodule in the right upper lobe (series 3, image 272). This is not present on th e prior examination. Mediastinum and Becki: There are mildly enlarged mediastinal and right hilar lymph nodes. There is a 1.3 cm right hilar lymph node. There is a 1.6 cm subcarinal lymph node. The esophagus is unremarkab le. Thyroid gland: Unremarkable. Pleura: No effusion or pneumothorax. Heart: The heart is not dilated. Coronary artery calcifications are present. No pericardial effusion . Aorta: Thoracic aorta non-dilated. Atherosclerotic calcification is present. No evidence of dissecti on. Pulmonary arteries: The pulmonary arteries are suboptimally opacified for evaluation of pulmonary emb lani. Upper abdomen: Unremarkable. Lymph nodes: Within normal limits. Bones: Within normal limits for the patient's age. Tubes, Catheters, and Lines: Soft tissues: Unremarkable. IMPRESSION: 1. Multiple new nodular opacities in the lungs as described above. Differential considerations inclu de infection/inflammation, metastatic disease or primary bronchogenic carcinoma. PET-CT scan should be considered for further evaluation in this patient. 2. Marked centrilobular emphysema. 3. Mildly enlarged mediastinal and right hilar lymph nodes. Unexpected findings RADIATION DOSE DELIVERED: Total DLP DATA REPOSITORY: All CT scans at this facility are submitted to the National Radiology Data Registry (NRDR) Dose Index Registry (DIR) with the [employer] (ACR). RADIATION OPTIMIZATION: All CT scans at this facility use at least one of these dose optimization te chniques: automated exposure control; mA and/or kV adjustment per patient size (includes targeted exa ms where dose is matched to clinical indication); or iterative reconstruction.
--- NOTE | 2024-04-04 10:15 | RT.EKG_ITS ---
APPROVED REPORT Exam: Resting ECG Reason for Exam: Chest Pain Patient Location: E HR:98 bpm ECG Measurements Heart Rate 98 AXIS ND 177 P 80 QRSd 91 QRS 71 QT 344 T 44 QTc 440 Conclusion Sinus rhythm...normal P axis, V-rate 60- 99 Right atrial enlargement...P>0.25mV 2 lds or<-0.24mV aVR/aVL ST elev, probable normal early repol pattern...ST elevation, age<55 Narrow complex normal sinus rhythm at a rate of 98. Right axis deviation. ND and QTc within normal limits. Findings consistent with mild inferior ST segment depressions. No significant ST segment el evations. Significant artifact in V5. No prior for comparison. No acute injury pattern.
--- NOTE | 2024-04-04 10:24 | ED.GENADUL_ITS ---
Discharge Plan Disposition Patient Disposition: Admit to [facility] Discharge Details Clinical Impression: COPD with acute exacerbation, Acute respiratory failure with hypoxia and hypercapnia Admit Date/Time: 04/04/24 12:39 Admit Provider: Harshal Espinoza Attending Provider: Harshal Espinoza Primary Care Provider: Darell Ivan ED Provider: Gadiel Pablo HPI General Date/Time Provider Initiated Documentation: 04/04/24 10:24 . HPI Narrative: MDM This is a hypoxic, tachycardic, and febrile cachectic 54-year-old former smoker with end expiratory wheezes and prolonged expiratory phase concerning for exacerbation of reactive airway disease versus sepsis versus PE versus ACS. ECG nonischemic however will obtain troponin to assess for myocardial infarction or injury. Will provide nebulized ipratropium albuterol and dexamethasone. Given concern for sepsis will treat with 2 g ceftriaxone after drawing blood cultures and lactate. No pain out of proportion to suggest necrotizing soft tissue infection. No trauma so doubt pneumothorax. No dysuria no frequency so doubt UTI. Will treat patient's hypoxia with nasal cannula oxygen. Will obtain a venous blood gas and reassess following fiber cc of crystalloid. No positional component to the chest pain to suggest pericarditis. No tearing quality to suggest aortic dissection. No recent vomiting to suggest increased risk for esophageal rupture. Not hypotensive nor dialysis patient so my suspicion is low for tamponade. Patient has never had a PE nor DVT and is low risk so we will send a D-dimer. No rash to chest to suggest zoster. Will swab for influenza COVID and RSV. No lower extremity edema and no history of heart failure to suggest acute heart failure. 10:45 AM Normal pH with mild hypercarbia most consistent with likely chronic retention. Reassuring normal lactate. 11:09 AM Mild hyperglycemia but no anion gap normal bicarbonate??not consistent with DKA. No acute electrolyte abnormalities. Normal magnesium. Negative troponin. CBC shows leukocytosis but no anemia. No thrombocytopenia. D-dimer negative based on years criteria so I did not obtain a CTA to assess for PE. 12:36 PM I spoke with Dr. Riggs who agreed graciously to accept the patient for hospitalization. Chronic conditions affecting the care of the patient: COPD History obtained from an outside historian: N/A External record review: No [facility] [place] Diagnostic interpretations performed by me: Per my independent interpretation chest x-ray shows: Hyperinflated lungs. No obvious infiltrate. Per my independent interpretation EKG shows: Narrow complex normal sinus rhythm at a rate of 98. Right axis deviation. TX and QTc within normal limits. Findings consistent with mild inferior ST segment depressions. No significant ST segment elevations. Significant artifact in V5. No prior for comparison. No acute injury pattern. ]Medications: Nebulized ipratropium albuterol dexamethasone ceftriaxone IV fluids acetaminophen Social determinants of health affecting disposition: N/A Management discussed with: Hospitalist Treatment/interventions considered: N/A Response to therapies provided: Improved symptoms with treatment in the ED HPI This is a 54-year-old male with history of COPD arrived to the emergency department in the setting of chest pain fevers and cough. Patient reports that he began having cold approximately 5 days ago. He is vaccinated against pneumonia but not COVID. He is not on home oxygen. He felt better 4 days ago but then 3 days ago he began dry heaving and had worsening cough. He says his chest pain is on the right side of his chest. Pain does not radiate. She never had a PE nor DVT. He quit smoking 6 months ago. He denies routine ethanol and illicits. Has had a fever and he took a decongestant at 4 AM this morning. He said no dysuria or frequency. Exam General: Cachectic and chronically ill-appearing in no mild respiratory distress speaking in 4-5 word sentences. Head: Normocephalic, atraumatic. Eye: Extraocular eye movements intact. No conjunctival injection. No scleral icterus. Ear, nose, mouth, throat: Grossly normal inspection. Normal voice, handling secretions normally. Neck: Trachea midline. Cardiovascular: Well-perfused distal extremities. Rapid regular rate. Respiratory: Respiratory rate in the upper 20s. Markedly prolonged and expiratory wheeze. No stridor. Diffuse wheezes. Gastrointestinal: Nondistended abdomen. Soft nontender Musculoskeletal: No significant lower extremity pitting edema. Moving all 4 extremities spontaneously. Skin: Normal for age and race, grossly normal temperature and turgor. No acute rash. Neurologic: Alert and appropriate, no apparent acute deficits. GCS 15. Psychiatric: Mood and manner are appropriate. Grooming and personal hygiene are appropriate. Related Data Home Medications Medication Instructions Recorded Confirmed ibuprofen 200 mg tablet (Advil) 800 mg PO PRN PRN 03/28/15 04/04/24 selenium sulfide 2.5 % lotion 1 applic topical DAILY 7 days #120 05/21/22 04/04/24 mL albuterol sulfate 90 mcg/actuation 2 inh inhalation Q6H PRN shortness 11/22/22 04/04/24 breath activated powder inhaler of breath or wheezing #1 ea (ProAir RespiClick) trazodone 100 mg tablet 100 mg PO QHS #60 tabs 11/22/22 04/04/24 fluticasone 250 mcg-salmeterol 50 1 inh inhalation BID #60 ea 04/19/23 04/04/24 mcg/dose blistr powdr for inhalation (Advair Diskus) tiotropium bromide 18 mcg capsule 1 cap inhalation DAILY #30 04/19/23 04/04/24 with inhalation device (Spiriva inhalations with HandiHaler) Previous Rx's Medication Instructions Recorded selenium sulfide 2.5 % lotion 1 applic topical DAILY 7 days #120 05/21/22 mL albuterol sulfate 90 mcg/actuation 2 inh inhalation Q6H PRN shortness 11/22/22 breath activated powder inhaler of breath or wheezing #1 ea (ProAir RespiClick) trazodone 100 mg tablet 100 mg PO QHS #60 tabs 11/22/22 fluticasone 250 mcg-salmeterol 50 1 inh inhalation BID #60 ea 04/19/23 mcg/dose blistr powdr for inhalation (Advair Diskus) tiotropium bromide 18 mcg capsule 1 cap inhalation DAILY #30 04/19/23 with inhalation device (Spiriva inhalations with HandiHaler) Allergies Allergy/AdvReac Type Severity Reaction Status Date / Time No Known Allergies Allergy Verified 04/04/24 10:31 General EDILIA: 5 Medical Decision Making Quality:SDOH Health Related Social Needs: No Data to Display Critical Care Time Critical Care Time Critical Care Time: Yes Total Critical Care Time: 30 Attestation: Acute respiratory failure hypoxia hypercarbia PFSH All Active Problems (Updated 04/04/24 @ 15:49 by June Rodriguez NP) Acute respiratory failure with hypoxia and hypercapnia (Acute) COPD with acute exacerbation (Acute) Asymmetrical sensorineural hearing loss (Acute) Solitary pulmonary nodule on lung CT (Acute) Cerumen impaction (Acute) Severe depression (Chronic) Seborrhea of face (Acute) Normal colonoscopy (Acute) COPD (chronic obstructive pulmonary disease) (Chronic 05/16/15) Most recent PFT: 04/20/15 with postbronchodilator FEV1 of 49% predicted. Diagnosed 04/2015 History of cardiac murmur (Chronic 04/15/15) Diagnosed early with cardiac workup resulting in determination that murmur was benign, per pt. No murmur appreciated on exam in 2014. Tobacco use disorder (Chronic 04/15/15) Quit in 2016, 30+ pack history Weight loss, unintentional (Chronic) Heart murmur (Acute 04/15/15) Hyperlipidemia (Chronic) [place] score 8.3%, started on statin 04/09 Medical History (Updated 04/04/24 @ 15:49 by June Rodriguez NP) History of anesthesia reaction Per pt. states when he [place] [facility] [place] told during the procedure he attempted to get up and walk off the table, and when he awoke he was strapped down to the bed. Tobacco use COPD (chronic obstructive pulmonary disease) Surgical History left hand laceration (05/20/79) 3 surgeries nerve and muscle damage with repair Family History Mother Hepatitis Substance abuse Father , resp failure at age 72. Lung disease Pt not sure exact dx but he was a heavy smoker. 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 Pets and animals: Yes Pets and animals: cat(s) and other Details: chickens Sexually active: Yes Do you think of yourself as: straight/heterosexual Current gender identity: male What is your relationship status?: How often do you talk on the phone with friends or family?: three or more times per week How often do you get together with friends or relatives?: twice per week How often do you attend worship or sikh services?: decline to answer Do you belong to any clubs or organized social groups?: no Panel score (0-1 are the most socially isolated patients): 2 What type of physical activity do you participate in: none Elena/Protestant: None Special elena needs: No Seatbelt use: always Helmet use: No Drive intox or ride w/intox corporate driver: No Working smoke detector in home: Yes Fire extinguisher in home: Yes Carbon monox detector in home: No Do you feel safe at home: Yes Do you feel safe in your relationship?: Yes POCUS Exam (ED) Limited Cardiac Exam DATE OF EXAM: 04/04/24 TIME OF EXAM: 10:53 PROVIDER THAT PERFORMED THE STUDY: Gadiel Pablo IS THIS A REPEAT EXAM DURING THIS ENCOUNTER: no REASON FOR EXAM: Dyspnea VISUALIZED STRUCTURES: Four Chambers and Left ventricle VIEW OBTAINED: Parasternal long-axis and Subxiphoid PERTINENT FINDINGS/IMPRESSION: No LV dysfunction and No pericardial effusion DIFFERENTIAL DIAGNOSES: good squeeze, no significant pericardial effusion. No significant B-lines bilaterally. Patient could not tolerate assessment of apical four-chamber nor measurement of aortic outflow tract. Exam complete
[2024-04-04 10:39] LABS: BE (Venous) 6 mmol/L (-2-3); HCO3 (Venous) 32 mmol/L (23-28); O2 Sat (Venous) 55 %; TCO2 (Venous) 28 mmol/L (24-29); pCO2 (Venous) 57 mmHg (41-51); pH (Venous) 7.36 (7.31-7.41); pO2 (Venous) 30 mmHg
[2024-04-04 10:40] LABS: HCT 46.4 % (40.0-50.0); MCH 31.5 pg (27.0-33.0); MCHC 34.5 % (32.0-36.0); MCV 91 fL (80-95); MPV 8.8 fL (8.0-11.0); Platelet Count 317 10^3/uL (130-400); RBC 5.08 10^6/uL (4.36-5.78); RDW 12.1 % (11.8-14.1); WBC 16.04 10^3/uL (4.4-10.8)
[2024-04-04] MEDS: Albuterol/Ipratropium 3 ML UPD VIAL (10:40)
[2024-04-04] MEDS: Acetaminophen 500 MG TAB 1000 MG PO (10:41)
[2024-04-04] MEDS: cefTRIAXone 2 GM/50 ML BAG IVPB (10:41)
[2024-04-04] MEDS: Normal Saline 500 ML IV (10:43)
--- NOTE | 2024-04-04 10:49 | DI.RAD_ITS ---
Exam(s) XR PORTABLE CHEST AP EXAM: XR PORTABLE CHEST AP CLINICAL HISTORY: Shortness of breath TECHNIQUE: 2D digital imaging was performed of the chest. One image was obtained. An AP view was ob tained. COMPARISON: CR XR CHEST 2V PA LATERAL from 08/06/2019 FINDINGS: MEDIASTINUM: Normal. HEART: Normal. PULMONARY VASCULATURE: Normal. LUNGS: The lungs are hyperinflated with flattened diaphragms consistent with underlying COPD. There is a question of a 2 cm opacity in the left upper lobe lateral to the aortic knob. No other focal co nsolidating infiltrates are seen. PLEURAL SPACE: No pleural effusion or pneumothorax. BONE:Within normal limits for the patient's age. OTHER FINDINGS:Normal. IMPRESSION: Question of a 2 cm opacity in the left upper lobe. CT scan of the chest is recommended for further e valuation. Unexpected findings DATA REPOSITORY: RADIATION DOSE DELIVERED:
[2024-04-04] MEDS: Dexamethasone 4 MG TAB 8 MG PO (10:56)
[2024-04-04 11:01] LABS: ALT 28 U/L (16-63); AST 25 U/L (15-37); Albumin 3.4 g/dL (3.4-5.0); Alkaline Phosphatase 48 U/L (46-116); Anion Gap 9.5 mmol/L (3-11); BUN 9 mg/dL (7-18); Bilirubin, Total 0.6 mg/dL (0.2-1.0); CO2 30.5 mmol/L (21.0-32.0); CREATININE 0.9 mg/dL (0.70-1.30); Chloride 96 mmol/L (98-107); Estimated GFR 101.49 (mL/min/1.73m2); Glucose 117 mg/dL (74-106); Magnesium 1.9 mg/dL (1.8-2.4); Potassium 3.9 mmol/L (3.5-5.1); Sodium 136 mmol/L (136-145); Total Protein 8.4 g/dL (6.4-8.2)
[2024-04-04 11:03] LABS: Troponin I < 50 ng/L (< or =60)
[2024-04-04 11:07] LABS: Absolute Monocyte Count 1.12 10^3/uL (0.1-0.8); Absolute Neutrophil Count 13.31 10^3/uL (1.2-6.7); Bands % 5 %; Diff Comment Manual Differential; RBC Morphology Normal
[2024-04-04 11:10] LABS: D-Dimer 974 ng/mlFEU (<500)
[2024-04-04 11:32] LABS: COVID-19 PCR Negative (Negative); Influenza A PCR Negative (Negative); Influenza B PCR Negative (Negative); RSV PCR Negative (Negative)
[2024-04-04 11:33] LABS: Source Nasopharynx
--- NOTE | 2024-04-04 11:39 | RESPIRATORY ---
Approx 1045 Assessed pt in ED, weaned pt down to RA. RN notified. Pt has expiratory wheezing heard over the RUL, RLL, LLL; ordered neb given by RN. Pt has a slight WOB but does not appear to be in distress at this time.
--- NOTE | 2024-04-04 12:08 | DI.VRAD_ITS ---
PROCEDURE INFORMATION: Exam: XR Chest Exam date and time: 04/04/2024 10:45 AM Age: 54 years old Clinical indication: Shortness of breath; Patient HX: SOB TECHNIQUE: Imaging protocol: Radiologic exam of the chest. Views: 1 view. COMPARISON: CT CHEST WO 09/19/2023 2:38 PM FINDINGS: Lungs: Emphysematous disease. No dense confluent airspace opacities. Pleural spaces: No pneumothorax. No large pleural effusion. Heart/Mediastinum: The cardiomediastinal silhouette is within normal limits. Bones/joints: Unremarkable. IMPRESSION: 1. Emphysematous disease. 2. No dense confluent airspace opacities. Dictated and Authenticated by: David Vazquez MD. Ordering:VANESSA Ramesh MD
[2024-04-04] MEDS: Doxycycline Hyclate 100 MG CAP (12:50)
[2024-04-04 13:48] LABS: Troponin I < 50 ng/L (< or =60)
--- NOTE | 2024-04-04 14:00 | RT.EKG_ITS ---
APPROVED REPORT Exam: Resting ECG Reason for Exam: Irregular heart rhythm Patient Location: I HR:75 bpm ECG Measurements Heart Rate 75 AXIS OR 189 P 87 QRSd 93 QRS 90 QT 378 T 78 QTc 423 Conclusion Sinus rhythm...normal P axis, V-rate 50- 99 Consider right atrial enlargement...P >0.24mV limb lead Borderline right axis deviation...QRS axis ( 90, 99)
[2024-04-04 14:42] LABS: Bilirubin Negative (Negative); Blood Trace-intact (Negative); Clarity Clear (Clear); Glucose Negative (Negative); Ketones 15 mg/dL (Negative); Leukocyte Esterase Negative (Negative); Nitrite Negative (Negative); Specific Gravity 1.015 (1.005-1.025)
[2024-04-04] MEDS: AZITHROMYCIN 500 MG in Normal Saline 250 ML 250 MG IVPB (14:55)
[2024-04-04 15:05] LABS: Bacteria Rare HPF (Negative); C & S Indicated? No; Casts Negative LPF (Negative); Crystals Negative HPF (Negative); Epithelial Cells Rare HPF (Negative); Mucus Trace (Negative); RBC 0-2 HPF (0-2); WBC 0-2 HPF (0-5)
--- NOTE | 2024-04-04 15:31 | HPE_ITS ---
Date of service: 04/04/24 Time of Service: 15:31 Assessment and Plan Assessment and plan (1) Acute respiratory failure with hypoxia and hypercapnia: Status: Acute Assessment and plan: Difficulty breathing x 5d; hx COPD, hx lung nodule VBG pH 7.36, CO2 57, HCO3 32 Chest xray: Emphysematous disease. No dense confluent airspace opacities. CT chest pending BC, sputum cx pending Nebulizers nicole duo nebs q6h and prn albuterol Oxygen as needed Azithromycin, ceftriaxone CT Chest as read by radiologist - 1. Bilateral upper and lower lobe bronchial wall thickening, compatible with reactive airway disease or bronchitis. 2. Irregular 2.3 cm heterogeneous nodular consolidation within the posterior aspect of the left upper lobe (series 3, image 201), most likely pneumonia. Recommend follow-up. 3. Calcified granuloma within the periphery of the right lower lobe. Slightly increased surrounding soft tissue attenuation material, measuring up to approximately 9 mm in diameter, likely infection/inflammation. Recommend follow-up. 4. 5 x 3 mm ovoid noncalcified nodular focus within the periphery of the left upper lobe (series 3, image 174), new from prior study, possibly additional focus of infection/inflammation. Recommend follow-up. (2) COPD with acute exacerbation: Status: Acute Assessment and plan: As above (3) Severe depression: Status: Chronic Assessment and plan: Stable, continue home meds (4) Weight loss, unintentional: Status: Chronic Assessment and plan: Patient reports 15 kg in less than [address] Espinoza History of Present Illness History of Present Illness Chief Complaint: Difficulty breathing Narrative: The patient is a 54-year-old male with a history of COPD and lung nodules, who presented to the emergency department for evaluation of chest pain, fever, and cough for 5 days. * Onset and Progression: Patient started feeling cold-like symptoms approximately 5 days ago. Initially felt better after a few days but developed dry heaving and worsening cough 3 days ago. * Chest Pain: Located on the right side of the chest, non-radiating. * Fever: Present, patient had taken a decongestant at 4 AM prior to arrival, no antipyretic * Urinary Symptoms: Denies dysuria or frequency. * Smoking: Former smoker, quit 6 months ago. * Vaccination: Vaccinated against pneumonia but not COVID-19. * Substance Use: Denies routine alcohol or illicit drug use. Clinical Findings on Presentation: * Physical Exam: Hypoxic, tachycardic, febrile, cachectic appearance. * Respiratory Exam: End expiratory wheezes, prolonged expiratory phase. * ECG: Non-ischemic, mild inferior ST segment depressions, right axis deviation, no acute injury pattern. * Diagnostic Workup: Chest x-ray shows hyperinflated lungs with no infiltrate. Labs show leukocytosis 65044, mild hyperglycemia without anion gap, normal lactate, negative troponin, normal electrolytes, normal magnesium. In the ED patient received ceftriaxone and azithromycin, dexamethasone, oxygen and nebulizers, with improvement of respiratory status. Placed on observation status on the medical floor for further testing and treatment for exacerbation of COPD. PFSH All Active Problems (Updated 04/04/24 @ 15:49 by June Rodriguez NP) Acute respiratory failure with hypoxia and hypercapnia (Acute) COPD with acute exacerbation (Acute) Asymmetrical sensorineural hearing loss (Acute) Solitary pulmonary nodule on lung CT (Acute) Cerumen impaction (Acute) Severe depression (Chronic) Seborrhea of face (Acute) Normal colonoscopy (Acute) COPD (chronic obstructive pulmonary disease) (Chronic 05/16/15) Most recent PFT: 04/20/15 with postbronchodilator FEV1 of 49% predicted. Diagnosed 04/2015 History of cardiac murmur (Chronic 04/15/15) Diagnosed early with cardiac workup resulting in determination that murmur was benign, per pt. No murmur appreciated on exam in 2014. Tobacco use disorder (Chronic 04/15/15) Quit in 2015, 30+ pack history Weight loss, unintentional (Chronic) Heart murmur (Acute 04/15/15) Hyperlipidemia (Chronic) [place] score 8.3%, started on statin 04/09 Medical History (Updated 04/04/24 @ 15:49 by June Rodriguez NP) History of anesthesia reaction Per pt. states when he had his hand surgery at [facility] [place], he was told during the procedure he attempted to get up and walk off the table, and when he awoke he was strapped down to the bed. Tobacco use COPD (chronic obstructive pulmonary disease) Surgical History left hand laceration (05/20/79) 3 surgeries nerve and muscle damage with repair Family History Mother Hepatitis Substance abuse Father , resp failure at age 72. Lung disease Pt not sure exact dx but he was a heavy smoker. 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 Pets and animals: Yes Pets and animals: cat(s) and other Details: chickens Sexually active: Yes Do you think of yourself as: straight/heterosexual Current gender identity: male What is your relationship status?: How often do you talk on the phone with friends or family?: three or more times per week How often do you get together with friends or relatives?: twice per week How often do you attend anglican or rastafari services?: decline to answer Do you belong to any clubs or organized social groups?: no Panel score (0-1 are the most socially isolated patients): 2 What type of physical activity do you participate in: none Elena/Restorationist: None Special elena needs: No Seatbelt use: always Helmet use: No Drive intox or ride w/intox route cdl driver: No Working smoke detector in home: Yes Fire extinguisher in home: Yes Carbon monox detector in home: No Do you feel safe at home: Yes Do you feel safe in your relationship?: Yes Meds Allergies and Home Medications Allergies Allergy/AdvReac Type Severity Reaction Status Date / Time No Known Allergies Allergy Verified 04/04/24 10:31 Home Medications Medication Instructions Recorded Confirmed Type ibuprofen 200 mg tablet (Advil) 800 mg PO PRN PRN 03/28/15 04/04/24 History selenium sulfide 2.5 % lotion 1 applic topical DAILY 7 days #120 05/21/22 04/04/24 Rx mL albuterol sulfate 90 mcg/actuation 2 inh inhalation Q6H PRN shortness 11/22/22 04/04/24 Rx breath activated powder inhaler of breath or wheezing #1 ea (ProAir RespiClick) trazodone 100 mg tablet 100 mg PO QHS #60 tabs 11/22/22 04/04/24 Rx fluticasone 250 mcg-salmeterol 50 1 inh inhalation BID #60 ea 04/19/23 04/04/24 Rx mcg/dose blistr powdr for inhalation (Advair Diskus) tiotropium bromide 18 mcg capsule 1 cap inhalation DAILY #30 04/19/23 04/04/24 Rx with inhalation device (Spiriva inhalations with HandiHaler) Results Labs 04/04/24 10:30 04/04/24 10:30 Labs: Laboratory Results - last 24 hr 04/04/24 04/04/24 04/04/24 10:30 13:25 14:15 WBC 16.04 H RBC 5.08 Hgb 16.0 Hct 46.4 MCV 91 MCH 31.5 MCHC 34.5 RDW 12.1 Plt Count 317 MPV 8.8 Immature Gran % See Differential Neutrophils % 78.0 Band Neutrophils % 5 Lymphocytes % 10.0 Monocytes % 7.0 Eosinophils % 0.0 Basophils % 0.0 Nucleated RBC % 0.0 Absolute Neutrophils 13.31 H Absolute Lymphocytes 1.60 Absolute Monocytes 1.12 H Absolute Eosinophils 0.00 Absolute Basophils 0.00 RBC Morphology Normal D-Dimer 974 H VBG pH 7.36 VBG pCO2 57 H VBG pO2 30 VBG HCO3 32 H VBG Total CO2 28 VBG O2 Saturation 55 VBG Base Excess 6 H VBG Lactate 1.0 Sodium 136 Potassium 3.9 Chloride 96 L Carbon Dioxide 30.5 Anion Gap 9.5 BUN 9 Creatinine 0.9 Est GFR (CKD-EPI 2020) 101.49 Glucose 117 H Calcium 9.0 Magnesium 1.9 Total Bilirubin 0.6 AST 25 ALT 28 Alkaline Phosphatase 48 Troponin I < 50 < 50 Total Protein 8.4 H Albumin 3.4 Urine Color Yellow Urine Clarity Clear Urine pH 6.0 Ur Specific [place] 1.015 Urine Protein Negative Urine Ketones 15 H Urine Blood Trace-intact H Urine Nitrite Negative Urine Bilirubin Negative Urine Urobilinogen 1.0 H Ur Leukocyte Esterase Negative Urine RBC 0-2 Urine WBC 0-2 Ur Epithelial Cells Rare Urine Crystals Negative Urine Bacteria Rare Urine Casts Negative Urine Mucus Trace Ur Culture Indicated? No Urine Glucose Negative COVID-19 Source Nasopharynx SARS-CoV-2 (PCR) Negative Influenza Type A (PCR) Negative Influenza Type B (PCR) Negative RSV (PCR) Negative Last Vital Signs Temp 36.6 C 04/04/24 14:07 Pulse 88 04/04/24 14:07 Resp 30 H 04/04/24 14:07 BP 106/70 04/04/24 14:07 Pulse Ox 92 04/04/24 14:07 Time Spent Time spent with Patient: 40-54 minutes Time was spent: preparing to see the patient(eg.review tests), obtaining and/or reviewing separately otained hiistory, ordering medications,tests, procedures, referring, communicating with other health rn homecare, indepentently interpreting results, counseling the patient and care coordination
[2024-04-04] MEDS: Normal Saline - Diluent 50 ML VIAL IJ (15:54)
[2024-04-04] MEDS: Omnipaque 350 MG/ML 100 ML BTL IJ (15:56)
--- NOTE | 2024-04-04 16:24 | DI.VRAD_ITS ---
PROCEDURE INFORMATION: Exam: CT Chest With Contrast; Diagnostic Exam date and time: 04/04/2024 3:52 PM Age: 54 years old Clinical indication: Patient HX: Difficulty breathing / HX nodules TECHNIQUE: Imaging protocol: Diagnostic computed tomography of the chest with contrast. 3D rendering (Not supervised by radiologist): MIP and/or 3D reconstructed images were created by the technologist. COMPARISON: CT CHEST WO 09/19/2023 2:38 PM FINDINGS: Lungs: Severe upper lobe predominant centrilobular emphysema, with chronic obstructive pulmonary physiologic changes. Bilateral upper and lower lobe bronchial wall thickening, compatible with reactive airway disease or bronchitis. Irregular 2.3 cm heterogeneous nodular consolidation within the posterior aspect of the left upper lobe (series 3, image 201), most likely pneumonia. Calcified granuloma within the periphery of the right lower lobe. 5 x 3 mm ovoid noncalcified nodular focus within the periphery of the left upper lobe (series 3, image 174), new from prior study, possibly additional focus of infection/inflammation. Pleural spaces: Unremarkable. No pneumothorax. No pleural effusion. Heart: Normal. Coronary arteries: Atherosclerotic disease of the left anterior descending coronary artery. Lymph nodes: No pathologically-enlarged lymph nodes. Vasculature: Unremarkable. No aortic aneurysm. Bones/joints: No acute fracture. Soft tissues: Slightly increased surrounding soft tissue attenuation material, measuring up to approximately 9 mm in diameter, likely infection/inflammation. IMPRESSION: 1. Bilateral upper and lower lobe bronchial wall thickening, compatible with reactive airway disease or bronchitis. 2. Irregular 2.3 cm heterogeneous nodular consolidation within the posterior aspect of the left upper lobe (series 3, image 201), most likely pneumonia. Recommend follow-up. 3. Calcified granuloma within the periphery of the right lower lobe. Slightly increased surrounding soft tissue attenuation material, measuring up to approximately 9 mm in diameter, likely infection/inflammation. Recommend follow-up. 4. 5 x 3 mm ovoid noncalcified nodular focus within the periphery of the left upper lobe (series 3, image 174), new from prior study, possibly additional focus of infection/inflammation. Recommend follow-up. Dictated and Authenticated by: Meet Hodges MD. Ordering:EDGARD Watkins MD
[2024-04-04] MEDS: Protein Nutritional Supplement 16 GM 1 OUNCE PACKET PO (19:40)
[2024-04-04] MEDS: Budesonide/Formoterol 160/4.5 6 GM 60 PUFF INH IH (19:49)
[2024-04-04] MEDS: Lactated Ringers 1,000 ML 150 ML IV (20:20)
[2024-04-05] MEDS: Lactated Ringers 1,000 ML 150 ML IV (02:55)
[2024-04-05 02:57] VITALS: BP 110/65; PULSE 71; RESP 19; TEMP 36.3; O2SAT 96
[2024-04-05 06:42] LABS: Abs Immature Grans 0.07 10^3/uL (0.0-0.06); Basophils % 0.2 %; HCT 37.7 % (40.0-50.0); HGB 13.3 g/dL (13.5-17.5); Immature Grans % 0.4 %; Lymphocytes % 6.7 %; MCH 31.8 pg (27.0-33.0); MCHC 35.3 % (32.0-36.0); MCV 90 fL (80-95); MPV 9.5 fL (8.0-11.0); Monocytes % 8.4 %; Neutrophils % 84.3 %; Platelet Count 327 10^3/uL (130-400); RBC 4.18 10^6/uL (4.36-5.78); RDW 12.3 % (11.8-14.1); RDW-SD 40.9 fL; WBC 16.15 10^3/uL (4.4-10.8)
[2024-04-05 06:44] LABS: Absolute Basophil Count 0.03 10^3/uL (0.0-0.2); Absolute Lymphocyte Count 1.08 10^3/uL (1.2-3.4); Absolute Monocyte Count 1.36 10^3/uL (0.1-0.8); Absolute Neutrophil Count 13.61 10^3/uL (1.2-6.7)
[2024-04-05 06:57] LABS: Anion Gap 4.4 mmol/L (3-11); BUN 16 mg/dL (7-18); CO2 31.6 mmol/L (21.0-32.0); CREATININE 0.6 mg/dL (0.70-1.30); Calcium 8.6 mg/dL (8.5-10.1); Chloride 103 mmol/L (98-107); Estimated GFR 114.71 (mL/min/1.73m2); Glucose 144 mg/dL (74-106); Potassium 3.8 mmol/L (3.5-5.1); Sodium 139 mmol/L (136-145)
[2024-04-05] MEDS: Budesonide/Formoterol 160/4.5 6 GM 60 PUFF INH IH (07:37)
[2024-04-05] MEDS: Tiotropium Bromide-Respimat 10 PUFF INH 2 PUFF IH (07:37)
[2024-04-05 07:41] VITALS: O2SAT 94
[2024-04-05 07:46] VITALS: BP 115/79; PULSE 78; RESP 17; TEMP 36.8; O2SAT 96
[2024-04-05] MEDS: Protein Nutritional Supplement 16 GM 1 OUNCE PACKET PO (07:51)
[2024-04-05] MEDS: cefTRIAXone 2 GM/50 ML BAG IVPB (10:34)
--- NOTE | 2024-04-05 10:52 | PDOC.CMIN ---
Date of service: 04/05/24 Time of Service: 10:52 Care Management Initial Assmt Advance Directives Advance Directives: Do you have an Advance Directive: N 03/28/15 10:51 AD On File at [facility]: N 03/28/15 10:51 Date Asked 04/05/24 04/05/24 08:33 AD Date Reviewed COLST On File at [facility] COLST Date Scanned Code Status Resuscitation Status Full Code Care Team Visit Care Team Role Provider Type Darell Ivan DO Primary Care Provider OSTEOPATHIC DOCTOR Tanika Rothman, ALTAGRACIA, [facility] Other Providers VP CARE MANAGEMENT Louise Garland Other Providers VP CARE MANAGEMENT Aki Wilson RDN Other Providers VP CARE MANAGEMENT Gadiel Pablo MD Emergency Provider [facility] STAFF PHYSICIAN Harshal Espinoza MD Admit Provider [facility] ST[facility]FF PHYSICIAN Attending Provider [facility] All Active Problems (Updated 04/04/24 @ 15:49 by June Rodriguez NP) Acute respiratory failure with hypoxia and hypercapnia (Acute) COPD with acute exacerbation (Acute) Asymmetrical sensorineural hearing loss (Acute) Solitary pulmonary nodule on lung CT (Acute) Cerumen impaction (Acute) Severe depression (Chronic) Seborrhea of face (Acute) Normal colonoscopy (Acute) COPD (chronic obstructive pulmonary disease) (Chronic 05/16/15) Most recent PFT: 04/20/15 with postbronchodilator FEV1 of 49% predicted. Diagnosed 04/2015 History of cardiac murmur (Chronic 04/15/15) Diagnosed early with cardiac workup resulting in determination that murmur was benign, per pt. No murmur appreciated on exam in 2014. Tobacco use disorder (Chronic 04/15/15) Quit in 2016, 30+ pack history Weight loss, unintentional (Chronic) Heart murmur (Acute 04/15/15) Hyperlipidemia (Chronic) [place] score 8.3%, started on statin 04/09 Medical History (Updated 04/04/24 @ 15:49 by June Rodriguez NP) History of anesthesia reaction Per pt. states when [place] [facility] [place] he was told during the procedure he attempted to get up and walk off the table, and when he awoke he was strapped down to the bed. Tobacco use COPD (chronic obstructive pulmonary disease) Surgical History left hand laceration (05/20/79) 3 surgeries nerve and muscle damage with repair Family History Mother Hepatitis Substance abuse Father , resp failure at age 72. Lung disease Pt not sure exact dx but he was a heavy smoker. 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 Pets and animals: Yes Pets and animals: cat(s) and other Details: chickens Sexually active: Yes Do you think of yourself as: straight/heterosexual Current gender identity: male What is your relationship status?: How often do you talk on the phone with friends or family?: three or more times per week How often do you get together with friends or relatives?: twice per week How often do you attend buddhism or congregation services?: decline to answer Do you belong to any clubs or organized social groups?: no Panel score (0-1 are the most socially isolated patients): 2 What type of physical activity do you participate in: none Elena/Cheondoism: None Special elena needs: No Seatbelt use: always Helmet use: No Drive intox or ride w/intox 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: No Working smoke detector in home: Yes Fire extinguisher in home: Yes Carbon monox detector in home: No Do you feel safe at home: Yes Do you feel safe in your relationship?: Yes SDOH(Care Management) Screening Will the Patient Participate in the Screening?: Yes Do you worry about having a steady place to live?: no In the past 12 months, have you had to go without electric, gas, oil or water in your home?: no Have you or anyone in your house had to go without enough food to eat?: no Has lack of transportation kept you from medical appointments or from doing things needed for daily living?: no Has anyone in your support network made you feel unsafe for any reason?: no
[2024-04-05 11:11] VITALS: BP 123/76; PULSE 82; RESP 16; TEMP 36.8; O2SAT 94
--- NOTE | 2024-04-05 11:12 | PDOC.CMDIS ---
Date of service: 04/05/24 Time of Service: 11:13 LACE Index Scoring Tool Questions: Length of Stay (in days): 1 Was the patient admitted via the E.D.?: Yes E.D. Visits: 0 Answers: Total Score: 4 Risk of Readmission: Low Risk Care Management Discharge Plan Reason for Hospitalization: Acute respiratory failure Discharge Plan: Juancho is discharged home with a plan to follow up with his PCP and Pulmonology. No new services are ordered at the time of this discharge. will provide transportation. Patient/Family Education Needs: Review discharge instructions and plan for outpatient follow up. Discuss ask me three and goals of self care. SDOH Health Related Social Needs: No Data to Display
[2024-04-05 11:52] VITALS: PULSE 81; RESP 20; RESP 5; O2SAT 93
[2024-04-05] MEDS: Albuterol/Ipratropium 3 ML UPD VIAL UPD (11:52)
--- NOTE | 2024-04-05 11:54 | DSE_ITS ---
Date of service: 04/05/24 Time of Service: 11:54 DS: Diagnosis Discharge Diagnosis (1) Acute respiratory failure with hypoxia and hypercapnia: Status: Acute (2) COPD with acute exacerbation: Status: Acute (3) Severe depression: Status: Chronic (4) Weight loss, unintentional: Status: Chronic Discharge Plan Disposition Patient Disposition: Home Condition: Improving Discharge Details Reason For Visit: Hypoxic hypercapnic acute respiratory failure Admit Date/Time: 04/04/24 12:39 Admit Provider: Harshal Espinoza Attending Provider: Harshal Espinoza Primary Care Provider: Darell Ivan [facility] Hospital Course: The patient is a 54-year-old male with a history of COPD and lung nodules who presented to the emergency department with complaints of chest pain, fever, and cough for 5 days. He initially experienced cold-like symptoms 5 days ago, with temporary improvement followed by dry heaving and worsening cough 3 days ago.? Symptoms: * Chest Pain: Located on the right side, non-radiating. * Fever: Present, had taken a decongestant prior to arrival. * Urinary Symptoms: Denies dysuria or frequency. * Smoking History: Former smoker, quit 6 months ago. * Vaccination: Vaccinated against pneumonia but not COVID-19. * Substance Use: Denies routine alcohol or illicit drug use. Clinical Findings on Presentation: * Physical Exam: Hypoxic, tachycardic, febrile, cachectic appearance. * Respiratory Exam: End expiratory wheezes, prolonged expiratory phase. * ECG: Non-ischemic, mild inferior ST segment depressions, right axis deviation, no acute injury pattern. * Diagnostic Workup: * Chest x-ray: Hyperinflated lungs with no infiltrate. * Labs: Leukocytosis (08605), mild hyperglycemia without anion gap, normal lactate, negative troponin, normal electrolytes, normal magnesium. Management in the Emergency Department: * Received: * Ceftriaxone and azithromycin * Dexamethasone * Oxygen therapy * Nebulizers * Showed improvement in respiratory status. Placed on observation status on the medical floor for further testing and treatment for exacerbation of COPD. * Continue monitoring and treatment for COPD exacerbation. * Additional testing as indicated. * Patient required oxygen when he ambulated, he desated to the mid 80s.? He was discharged to home with oxygen.? RT provided him with instructions. Oxygen as needed Arrange follow-up with primary care provider in 1 week. Discharge Medications: * Ceftriaxone * Azithromycin * Prednisone * Nebulizers as needed * Oxygen as needed Discharge Instructions: * Follow-up with primary care provider. * Referral to pulmonolgy * Continue prescribed medications. * Avoid triggers for COPD exacerbation (smoking, air pollutants). Home Meds and New Rx's Prescriptions: New azithromycin 250 mg tablet 250 mg PO DAILY 4 Days Qty: 4 0RF Rx Instructions: start on day 2 of therapy albuterol sulfate 90 mcg/actuation HFA aerosol inhaler 2 puff inhalation 6XD PRNQty: 8.5 0RF Rx Instructions: for wheezing prednisone 20 mg tablet 40 mg PO DAILY Qty: 8 0RF ipratropium-albuterol 0.5 mg-3 mg(2.5 mg base)/3 mL solution for nebulization 3 ml inhalation QID PRNQty: 90 0RF albuterol sulfate 2.5 mg /3 mL (0.083 %) solution for nebulization 2.5 mg inhalation QID PRNQty: 90 0RF (DME) Oxygen Tank See Rx Instructions .Route Qty: 1 0RF Rx Instructions: As directed Continued selenium sulfide 2.5 % lotion 1 applic topical DAILY 7 Days Qty: 120 2RF ProAir RespiClick 90 mcg/actuation aerosol powdr breath activated 2 inh inhalation Q6H PRN (Reason: shortness of breath or wheezing) Qty: 1 6RF trazodone 100 mg tablet 100 mg PO QHS Qty: 60 0RF tiotropium bromide [Spiriva with HandiHaler] 18 mcg capsule, w/inhalation device 1 cap IH DAILY Qty: 30 11RF Rx Instructions: puncture 1 cap using device; one dose = 2 inhalations fluticasone propion-salmeterol [Advair Diskus] 250-50 mcg/dose blister with device 1 inh Inhalation BID Qty: 60 11RF ibuprofen [Advil] 200 MG tablet 800 mg PO PRN PRN Discharge Instructions Instructions: Chronic obstructive pulmonary disease (COPD), Azithromycin (Systemic), How to Use a Nebulizer, Adult, Albuterol, Ipratropium and Albuterol, Prednisone, Oxygen therapy at home Additional Instructions: We sent a referral to pulmonology. Use your nebulizer as prescribed. Use oxygen as needed. Stand Alone Forms: Nursing Discharge Form Referrals: Divina Durham MD [ [facility] STAFF PHYSICIAN] - (COPD--Referral faxed - new oxygen requirement) Darell Ivan DO [Primary Care Provider] - (Please call on Saturday to make a hospital follow up within 10-14 days. ) Activity:: Activity as Tolerated Equipment/Supplies:: No Equipment Needed Diet:: As Tolerated Discharge Orders Discharge Orders: Discharge Order (Routine); Ordered 04/05/24 Ordered By: June Rodriguez Discharge Data Discharge Date/Time-TO BE ENTERED AT DEPARTURE: 04/05/24 15:51 DS: Summary Time Spent with Patient providing and/or coordinating discharge services: Greater than 30 minutes Status at Discharge Functional status at discharge: independent ambulation Overall status at discharge: patient is back to baseline Mental Status: mental status grossly normal Speech and Movement: speech and movement normal Mood: congruent mood and irritable mood Affect: normal affect Quality:SDOH Health Related Social Needs: No Data to Display Exam Const General: cooperative, healthy appearing, comfortable, no acute distress and well developed Nutritional Appearance: average body habitus and well nourished Orientation: alert and awake Resp Effort & Inspection: normal respiratory effort, able to speak in complete sentences and no respiratory distress Cardio Rate: regular rate Rhythm: regular rhythm Skin Trauma: laceration (right hand, appears to be healing well, no signs of infection) Neuro General: patient alert and patient awake Cognition: normal cognition Speech: speech normal Gait: normal gait Motor: muscle tone normal throughout Extrem Right upper extremity: full ROM, normal capillary refill and no joint enlargement; abnormal to inspection (laceration to dorsal radial side of hand, h ealing well) Psych Appearance: grossly normal and well kempt Mental Status: mental status grossly normal Speech and Movement: speech and movement normal Mood: congruent mood and irritable mood Affect: normal affect DS: Data Vitals/I&O Vitals and I&O: Vital Signs Temperature 36.8 C 04/05/24 11:11 Temperature Source Temporal Artery Scan 04/05/24 11:11 Pulse 82 04/05/24 11:11 Pulse Rhythm Regular 04/05/24 08:00 Pulse 97 H 04/04/24 12:40 Respiratory Rate 16 04/05/24 11:11 Respiratory Effort Normal, Non-Labored 04/05/24 08:00 Respiratory Depth Normal 04/05/24 08:00 Respiratory Pattern Normal 06/16/24 08:00 Blood Pressure 123/76 04/05/24 11:11 Blood Pressure Mean 93 04/04/24 12:31 Blood Pressure Position Supine 04/04/24 10:24 Pulse Oximetry 94 04/05/24 11:11 Oxygen Delivery Method Room Air 04/05/24 11:11 Oxygen Flow Rate 0 04/05/24 11:11 Pain Level 0 04/05/24 11:11 Comment on 2L 04/04/24 12:31 Intake & Output 04/04/24 04/04/24 04/05/24 11:59 23:59 11:59 Intake Total 570 / 1320 750 / 1320 1962.5 / 1962.5 Output Total 300 / 300 825 / 825 Balance 570 / 1020 450 / 1020 1137.5 / 1137.5 Weight 48.5 kg 40.6 kg 49.8 kg Intake: IV 570 / 840 270 / 840 1962.5 / 1962.5 Oral 480 / 480 Output: Urine 300 / 300 825 / 825 Other: Urine Color Straw Yellow Urine Appearance Clear Clear Urine Odor Strong None Voiding Methods Urinal Urinal Data Completed and Pending Labs on day of discharge: Labs from last 24 hours 04/05/24 04/04/24 04/04/24 06:05 14:15 13:25 WBC 16.15 H RBC 4.18 L Hgb 13.3 L D Hct 37.7 L MCV 90 MCH 31.8 MCHC 35.3 RDW 12.3 Plt Count 327 MPV 9.5 Immature Gran % 0.4 Neutrophils % 84.3 Lymphocytes % 6.7 Monocytes % 8.4 Eosinophils % 0.0 Basophils % 0.2 Nucleated RBC % 0.0 Absolute Neutrophils 13.61 H Absolute Lymphocytes 1.08 L Absolute Monocytes 1.36 H Absolute Eosinophils 0.00 Absolute Basophils 0.03 Sodium 139 Potassium 3.8 Chloride 103 Carbon Dioxide 31.6 Anion Gap 4.4 BUN 16 Creatinine 0.6 L Est GFR (CKD-EPI 2020) 114.71 Glucose 144 H Calcium 8.6 Magnesium 2.0 Troponin I < 50 Urine Color Yellow Urine Clarity Clear Urine pH 6.0 Ur Specific [place] 1.015 Urine Protein Negative Urine Ketones 15 H Urine Blood Trace-intact H Urine Nitrite Negative Urine Bilirubin Negative Urine Urobilinogen 1.0 H Ur Leukocyte Esterase Negative Urine RBC 0-2 Urine WBC 0-2 Ur Epithelial Cells Rare Urine Crystals Negative Urine Bacteria Rare Urine Casts Negative Urine Mucus Trace Ur Culture Indicated? No Urine Glucose Negative 04/04/24 10:34 Blood Blood Culture - Pending 04/04/24 10:30 Blood Blood Culture - Pending Preliminary micro results at discharge 04/04/24 14:07 Sputum Culture - Preliminary Sputum Normal Francine 04/04/24 10:34 Blood Culture - Pending Blood 04/04/24 10:30 Blood Culture - Pending Blood PFSH All Active Problems (Updated 04/04/24 @ 15:49 by June Rodriguez NP) Acute respiratory failure with hypoxia and hypercapnia (Acute) COPD with acute exacerbation (Acute) Asymmetrical sensorineural hearing loss (Acute) Solitary pulmonary nodule on lung CT (Acute) Cerumen impaction (Acute) Severe depression (Chronic) Seborrhea of face (Acute) Normal colonoscopy (Acute) COPD (chronic obstructive pulmonary disease) (Chronic 05/16/15) Most recent PFT: 04/20/15 with postbronchodilator FEV1 of 49% predicted. Diagnosed 04/2015 History of cardiac murmur (Chronic 04/15/15) Diagnosed early with cardiac workup resulting in determination that murmur was benign, per pt. No murmur appreciated on exam in 2014. Tobacco use disorder (Chronic 04/15/15) Quit in 2015, 30+ pack history Weight loss, unintentional (Chronic) Heart murmur (Acute 04/15/15) Hyperlipidemia (Chronic) [place] score 8.3%, started on statin 04/09 Medical History (Updated 04/04/24 @ 15:49 by June Rodriguez NP) History of anesthesia reaction Per pt. states when he had his hand surgery at [facility] [place], he was told during the procedure he attempted to get up and walk off the table, and when he awoke he was strapped down to the bed. Tobacco use COPD (chronic obstructive pulmonary disease) Surgical History left hand laceration (05/20/79) 3 surgeries nerve and muscle damage with repair Family History Mother Hepatitis Substance abuse Father , resp failure at age 72. Lung disease Pt not sure exact dx but he was a heavy smoker. 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 Pets and animals: Yes Pets and animals: cat(s) and other Details: chickens Sexually active: Yes Do you think of yourself as: straight/heterosexual Current gender identity: male What is your relationship status?: How often do you talk on the phone with friends or family?: three or more times per week How often do you get together with friends or relatives?: twice per week How often do you attend christian or anglican services?: decline to answer Do you belong to any clubs or organized social groups?: no Panel score (0-1 are the most socially isolated patients): 2 What type of physical activity do you participate in: none Elena/Taoism: None Special elena needs: No Seatbelt use: always Helmet use: No Drive intox or ride w/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
[2024-04-05 12:00] VITALS: PULSE 78; RESP 5; O2SAT 98
--- NOTE | 2024-04-05 13:24 | RESPIRATORY ---
Exercise Oximetery Rest on RA SPO2 93%, HR 86 Exercise on RA SPO2 lowest 85%, Pt stated he was exerting himself more than usual. Pt recovered quickly on 1L, Pt required 1L with ambulation to maintain SPO2 >88% Pt recovered on RA, SPO2 93% HR 81
--- NOTE | 2024-04-05 15:03 | INITIAL_ITS ---
Date of service: 04/05/24 Time of Service: 15:03 Care Management Initial Assmt Initial Assessment Reason for Hospitalization: Respiratory Failure with Hypoxia Functional Status/Living Situation Patient Presentation: Juancho was sitting in a chair, dressed in his street clothes when CM met with him. Per pt, he lives off grid with a reliable generator in [place] on a road that is passable, just not by a low car. Pt needs New home O2 and is eager to discharge home today with or without it. Home O2 through [facility] will be provided to patient at the time of discharge with patients understanding that he will need to run his generator 13/05. Juancho has increased sob with ambulation and will need to be fairly sedentary until his home O2 supply from [facility] arrives, which may not be until tomorrow. Town of Residence: [place] Resides with: Child and Spouse ( Alyssa) Significant Other/Family: Local Employment Status: Employed ([employer]) Instrumental Activities of Daily Living (ADLs): Independent Medications Medication Management: No Issues/Barriers identified Physical Functioning/Mobility Assistive Device: None Advance Directives Advance Directives: Do you have an Advance Directive: N 03/28/15 10:51 AD On File at [facility]: N 03/28/15 10:51 Date Asked 04/05/24 04/05/24 08:33 AD Date Reviewed COLST On File at [facility] COLST Date Scanned Code Status Resuscitation Status Full Code Portal Pt does not currently have a portal and education provided: Yes Insurance Coverage/Financial Issues Insurance: Medicaid ACO Member: Yes Care Team Visit Care Team Role Provider Type Darell Ivan DO Primary Care Provider OSTEOPATHIC DOCTOR Tanika Rothman RDN, [facility] Other Providers [employer] FITNESS INSTRUCTOR Sabina Hansen Other Providers [employer] FITNESS INSTRUCTORBAILEY Wilson RDN Other Providers [employer] FITNESS INSTRUCTOR Gadiel Pablo MD Emergency Provider [facility] STAFF PHYSICIAN Harshal Espinoza MD Admit Provider [facility] STAFF PHYSICIAN Attending Provider Discharge Potential Discharge Needs: Consult Consult Services Needed: Pulmonary and PCP F/U Appt Anticipated Barriers to Discharge: Other ([place] O2 needed, delivery coordination with fe. ) Patient/Family Education Needs: Review discharge instructions, discuss Ask Me Three Transportation: Private vehicle Plan: Juancho will likely discharge home with New home O2 and a plan to follow up with his PCP and Pulmonology. will transport. No new services are ordered at the time of this discharge. CM will follow. PFSH All Active Problems (Updated 04/04/24 @ 15:49 by June Rodriguez NP) Acute respiratory failure with hypoxia and hypercapnia (Acute) COPD with acute exacerbation (Acute) Asymmetrical sensorineural hearing loss (Acute) Solitary pulmonary nodule on lung CT (Acute) Cerumen impaction (Acute) Severe depression (Chronic) Seborrhea of face (Acute) Normal colonoscopy (Acute) COPD (chronic obstructive pulmonary disease) (Chronic 05/16/15) Most recent PFT: 04/20/15 with postbronchodilator FEV1 of 49% predicted. Diagnosed 04/2015 History of cardiac murmur (Chronic 04/15/15) Diagnosed early with cardiac workup resulting in determination that murmur was benign, per pt. No murmur appreciated on exam in 2014. Tobacco use disorder (Chronic 04/15/15) Quit in 2015, 30+ pack history Weight loss, unintentional (Chronic) Heart murmur (Acute 04/15/15) Hyperlipidemia (Chronic) Rockford score 8.3%, started on statin 04/09 Medical History (Updated 04/04/24 @ 15:49 by June Rodriguez NP) History of anesthesia reaction Per pt. states when he had his hand surgery at [facility], he was told during the procedure he attempted to get up and walk off the table, and when he awoke he was strapped down to the bed. Tobacco use COPD (chronic obstructive pulmonary disease) Surgical History left hand laceration (05/20/79) 3 surgeries nerve and muscle damage with repair Family History Mother Hepatitis Substance abuse Father , resp failure at age 72. Lung disease Pt not sure exact dx but he was a heavy smoker. 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 Pets and animals: Yes Pets and animals: cat(s) and other Details: chickens Sexually active: Yes Do you think of yourself as: straight/heterosexual Current gender identity: male What is your relationship status?: How often do you talk on the phone with friends or family?: three or more times per week How often do you get together with friends or relatives?: twice per week How often do you attend uatsdin or jainism services?: decline to answer Do you belong to any clubs or organized social groups?: no Panel score (0-1 are the most socially isolated patients): 2 What type of physical activity do you participate in: none Elena/Hindu: None Special elena needs: No Seatbelt use: always Helmet use: No Drive intox or ride w/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 Working smoke detector in home: Yes Fire extinguisher in home: Yes Carbon monox detector in home: No Do you feel safe at home: Yes Do you feel safe in your relationship?: Yes SDOH(Care Management) Screening Will the Patient Participate in the Screening?: Yes Do you worry about having a steady place to live?: no In the past 12 months, have you had to go without electric, gas, oil or water in your home?: no Have you or anyone in your house had to go without enough food to eat?: no Has lack of transportation kept you from medical appointments or from doing things needed for daily living?: no Has anyone in your support network made you feel unsafe for any reason?: no
== END 2024-04-05 15:51 | disposition home or self-care (01) ==
LOC: ER 12:37 → MS 04-05 08:33
PROVIDERS: Nurse Practitioner Family; Admitting Provider Internal Medicine; Emergency Provider Emergency Medicine; PCP Family Medicine; Visit Provider Internal Medicine
DX: J96.01 Acute respiratory failure with hypoxia (principal); J96.02 Acute respiratory failure with hypercapnia; J44.1 Chronic obstructive pulmonary disease with (acute) exacerbation; F32.2 Major depressive disorder, single episode, severe without psychotic features; R63.4 Abnormal weight loss; Z68.1 Body mass index [BMI] 19.9 or less, adult; R91.8 Other nonspecific abnormal finding of lung field; R07.89 Other chest pain; R50.9 Fever, unspecified; R05.9 Cough, unspecified; Z87.891 Personal history of nicotine dependence; R00.0 Tachycardia, unspecified; E78.5 Hyperlipidemia, unspecified
CPT/HCPCS: 00123; 36415; 80048; 80053; 82805; 87040; 87637; 93005; 93308; 94618; 94640; 96361; 96365; 96366; 96367; 99291; 71045; 71260; 81003; 81015; 83605; 83735; 84484; 85025; 85379; 87070; 87205; 93010; 94664; 94760; 99222; 99239; G0378; J0456; J0696; J3490; J7620; J8540

== ENCOUNTER 2024-04-28 19:09 | Outpatient (REF) | payer MEDICAID, SELFPAY ==
[2024-04-28 16:17] LABS: Abs Immature Grans 0.05 10^3/uL (0.0-0.06); Absolute Basophil Count 0.04 10^3/uL (0.0-0.2); Absolute Lymphocyte Count 1.18 10^3/uL (1.2-3.4); Absolute Monocyte Count 1.18 10^3/uL (0.1-0.8); Basophils % 0.3 %; Eosinophils % 0.8 %; HCT 45.1 % (40.0-50.0); HGB 15.1 g/dL (13.5-17.5); Immature Grans % 0.4 %; Lymphocytes % 9.4 %; MCH 31.5 pg (27.0-33.0); MCHC 33.5 % (32.0-36.0); MCV 94 fL (80-95); Monocytes % 9.4 %; Neutrophils % 79.7 %; Platelet Count 402 10^3/uL (130-400); RDW 13.5 % (11.8-14.1); RDW-SD 46.2 fL; WBC 12.51 10^3/uL (4.4-10.8)
[2024-04-28 16:36] LABS: Absolute Neutrophil Count 9.97 10^3/uL (1.2-6.7)
[2024-05-05 13:21] LABS: IgE 23 IU/mL (<158)
== END 2024-04-28 19:10 | disposition home or self-care (01) ==
LOC: LBN 19:09
PROVIDERS: PCP Family Medicine; Visit Provider Physician Assistant Surgical
DX: J44.9 Chronic obstructive pulmonary disease, unspecified (principal); J96.11 Chronic respiratory failure with hypoxia; Z99.81 Dependence on supplemental oxygen
CPT/HCPCS: 82785; 85025

== ENCOUNTER 2024-05-05 15:26 | Outpatient (CLI) | payer MEDICAID, SELFPAY ==
--- OUTSIDE RECORDS SUMMARY | 2024-05-05 15:27 | XMS_ITS | Encounter Summary ---
Author Organization [facility] Address [address] [place] [address] Care Team Providers Care Business Technology Professor Name Role Phone Unavailable Primary Care Provider Unavailabl e Encounter Details Date Type Department Care Team (Late st Contact Info) Description 06/24/2007 Before PRISM Converted Visit (Maple) [facility] - Maple conversion [address] [place] [address] Carlos Bullock MD [address] [place] [address] [address] [place] [address] Social History Tobacco Use Types Packs/Day Years Used Date Smoking Tobacco: Never Assessed Sex and Gender Information Value Date Recorded Sex Assigned at Not on file Gender Identity Not on file Sexual Orientation Not on file documented as of this encounter Progress Notes * Carlos Bullock MD - 08/28/2009 192 EST DIVISION OF PLASTIC SURGERY PROGRESS/FOLLOWUP NOTE - 07/22/2007 RUDDY Dawkins returns in followup. He continues to have pain in his left wrist, no paresthesias, no numbness, tingling. He has had an MRI. I have had a chance to review this and had a chance to review his previous operative record. OBJECTIVE On examination, he continues to have pain on the ulnar side of his wrist. He has positive tenderness in the fovea and arm tenderness with ulnar deviation of the wrist. Review of the MRI showed I think some irregularities of the TFCC even though the dictation does notappreciate this. The course of the ulnar nerve appears to be normal. IMPRESSION AND PLAN has ulnar-sided wrist pain with a positive foveal sign. I wonder if he has TFCC abnormality and whether he might benefit from a wrist arthroscopy. I would like him to consult with Dr. Florentin Mullins or Kenny Rios about his possibility. [id number] Signed by Carlos Bullock MD 07/29/2007 14:56 Carlos Bullock MD - Tere Bullock MD A - dk Job ID: [id number] Document ID: [id number] cc: MD Florentin Tse MD documented in this encounter Consult Notes * Carlos Bullock MD - 08/26/2009 1422 EST DIVISION OF PLASTIC SURGERY CONSULTATION - 06/24/2007 A consultation was requested by Violetta Graves NP for evaluation of weakness and dysfunction of the left hand. Violetta Graves NP [facility] [address] [place] [address] Dear Ms. Graves: Thank you very much for sending Juancho to me in consultation. As you know, he is a 37-year-old man who presents with a chief complaint of weakness and dysfunction in his left hand. The patient reports that he had a childhood injury at the age of [age] or [age], when he fell onto a broken Coke bottle, lacerating his left wrist. He was treated at [facility] with an apparent sural nerve graft. The patient reports that he has had normal sensation throughout the entire left hand but has had some weakness and over the past few years he has noticed progressive worsening of the weakness and dysfunction in his left hand. He presented to Dr. Horne at [facility] in [address] Horne noted some ganglion cyst in the palm and left wrist. Since that time, he has had continued weakness with some initial improvement after the surgery. He currently is unemployed in his current vocation of [employer]. The patients past medical history is reviewed. She is on no medications, has no known medication allergies. She is a smoker of a packa day, she smokes some marijuana. She has no family history of note. His review of systems is positive for exposure to noise, cough, breathlessness, a heart murmur. The remaining systems reviewed are negative. The patients past medical records are not available at this time but he reports that he had an EMG last week and a magnetic resonance imaging of his wrist prior to his surgery in [facility]. On examination the patient is a pleasant, well-appearing 37-year-old man in no acute distress. The patientleft hand illustrates a classic ulnar nerve palsy findings. He has wasting of the dorsal first web space. He has abduction of the fifth finger. He has a Fromentsign of the thumb and his hand folds in a liturgical claw-type position of repose. 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 He has a scar extending from the wrist on the ulnar aspect into the palm of his hand. He does not have a Tinelsign over the course of the ulnarnerve. He does not have a Tinels sign over the ulnar nerve at the elbow either. I do not appreciateany discrete masses in the wrist. 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 It sounds like a neurolysis and excision of ganglion cyst has not given him any permanent improvement. I think it is reasonable to repeat his magnetic resonance imaging and see if there is any recurrent compression of the ulnar nerve but I am somewhat pessimistic as to whether any surgical interve ntion at this point would give him the sort of improvement that he desires. I have ordered the magnetic resonance imaging and we will also attempt to obtain his records from [facility] and from his primary care physician in [facility]. He will return following the completion of the magnetic resonance imaging. I want to thank you for sending me this patient in consultation. If there are any further questions, please do not hesitate to contact me. Sincerely, [id number] Signed by Carlos Bullock MD 07/10/2007 09:22 Elias Bullock, Sarah Bullock MD Carlos Bullock MD - Tere Bullock MD A - chr Job ID: [id number] Document ID: [id number] cc: MD Violetta Tse NP James Murphy, MD documented in this encounter Plan of Treatment Not on file documented as of this encounter Visit Diagnoses Not on filedocumented in this encounter
--- OUTSIDE RECORDS SUMMARY | 2024-05-05 15:27 | XMS_ITS | Encounter Summary ---
Author Organization [facility] Address [address] [place] [address] Care Team Providers Care Asphalt Layer Name Role Phone Unavailable Primary Care Provider Unavailabl e Encounter Details Date Type Department Care Team (Late st Contact Info) Description 02/28/2010 Abstract [facility] Plastic, Reconstructive & Cosmetic Surgery - [address], [address] [place], [place] [address] No Pcp, Social History Tobacco Use Types Packs/Day Years Used Date Smoking Tobacco: Never Assessed Sex and Gender Information Value Date Recorded Sex Assigned at Not on file Gender Identity Not on file Sexual Orientation Not on file documented as of this encounter Plan of Treatment Not on file documented as of this encounter Visit Diagnoses Not on filedocumented in this encounter
--- OUTSIDE RECORDS SUMMARY | 2024-05-05 15:27 | XMS_ITS | Encounter Summary ---
Author Organization [facility] Address [address] [place] [address] Care Team Providers Care Shoelace Tipping Machine Operator Name Role Phone Gadiel Zavala MD Primary Care Provider [phone] Encounter Details Date Type Department Care Team (Late st Contact Info) Description 04/29/2024 Lab Requisition [facility] Pathology & Laboratory Medicine - [address] [address] Outr Resulting Lab, Provider Social History Tobacco Use Types Packs/Day Years Used Date Smoking Tobacco: Never Assessed Sex and Gender Information Value Date Recorded Sex Assigned at Not on file Gender Identity Not on file Sexual Orientation Not on file documented as of this encounter Plan of Treatment Not on file documented as of this encounter Procedures Procedure Name Priority Date/Time Associated Diagnosis Comments IGE Routine 04/28/2024 14:45 EDT documented in this encounter Results * IGE (04/28/2024 14:45 EDT) IgE 23 <158 IU/mL 05/05/2024 13:17 EDT [facility] Blood VENOUS BLOOD / Unknown 04/28/2024 14:45 EDT 04/29/2024 17:43 EDT Provider Outr Resulting Lab CHEMISTRY & BLOOD GAS ORDERABLES [facility] [address] [place], [place] [id number] documented in this encounter Visit Diagnoses Not on filedocumented in this encounter Care Teams Shoelace Tipping Machine Operator Relationship Specialty Start Date End Date Gadiel Zavala MD PCP - General 08/27/15 documented as of this encounter
--- OUTSIDE RECORDS SUMMARY | 2024-05-05 15:27 | XMS_ITS | Encounter Summary ---
Author Organization [facility] Address [address] [place] [address] Care Team Providers Care Manufacturing Accountant Name Role Phone Gadiel Zavala MD Primary Care Provider [phone] Encounter Details Date Type Department Care Team (Late st Contact Info) Description 07/19/2020 Lab Requisition [facility] Pathology & Laboratory Medicine - [address] [id number] Outr Resulting Lab, Provider Social History Tobacco [...] Procedure Name Priority Date/Time Associated Diagnosis Comments DO NOT ORDER STANDALONE - [facility] COVID TEST Today 07/19/2020 8:55 EDT COVID-19 TESTING Routine 07/19/2020 8:55 EDT documented in this encounter Results * DO NOT ORDER STANDALONE - [facility] COVID TEST (07/19/2020 8:55 EDT) COVID-19 rt-PCR Result NEGATIVE Negative 07/20/2020 10:54 EDT [facility] Comment: 2019-novel Coronavirus (2019-nCoV) not detected by the qRT-PCR assay. Consider testing for other respiratory viruses or re-collecting for 2019-nCoV testing. Note: Optimum timing for peak viral levels during infections caused by 2019-nCoV have not been determined. Collection of multiple specimens from the same patient may be necessary to detect the virus. Limitations Positive results are indicative of active infection with SARS-CoV-2 but do not rule out bacterial infection or co-infection with other viruses. The agent detected may not be the definite cause of disease. In addition, detection of viral RNA may not indicate the presence of infectious virus or that SARS-CoV-2 is the causative agent for clinical symptoms. Negative results do not preclude SARS-CoV-2 infection and should not be used as the sole basis for patient management decisions. Negative results must be combined with clinical observations, patient history, and epidemiological information. False negative results may also occur if amplification inhibitors are present in the specimen or if inadequate numbers of organisms are present in the specimen. Optimum specimen types and timing for peak viral levels during infections caused by SARS-CoV-2 have not been fully determined. Collection of multiple specimens (types and time points) from the same patient may be necessary to detect the virus. The test was validated for use with upper respiratory specimens obtained via nasopharyngeal or oropharyngeal swabs in VTM, UTM, M4, M5, M6, saline, and MTM media. The performance of this test has not been established for other specimens. Specimens collected using other FDA recommended Specimen Collection Materials listed in the FDA COVID-19 Diagnostic Technologies communication (January 14, 2020) are processed with the caveat that they were not all validated for use with this test and the result must be interpreted in this context. Furthermore, a false negative results may occur if a specimen is improperly collected, transported or handled. If the virus mutates in the RT-PCR target region, SARS-CoV-2 may not be detected or may be detected less predictably. Inhibitors or other types of interference may produce a false negative result. An interference study evaluating the effect of common cold medications was not performed. This test is not FDA-cleared but its performance characteristics were established by our CLIA-certified, CAP-accredited, high complexity laboratory in accordance with CLIA regulations, [employer] [place] (CAP) guidelines (Jan 07, 2020), and FDA guidance (Dec 19, 2019). This test is only for use under the Food and Drug Administration's Emergency Use Authorization. Swab ENTIRE NASOPHARYNX / Unknown 07/19/2020 8:55 EDT 07/19/2020 15:54 EDT Provider Outr Resulting Lab MICROBIOLOGY - GENERAL ORDERABLES [facility] [place], [place] * COVID-19 TESTING (07/19/2020 8:55 EDT) COVID-19 rt-PCR Result NEGATIVE Negative 07/20/2020 13:07 EDT [facility] Comment: 2019-novel Coronavirus (2019-nCoV) not detected by the qRT-PCR assay. Consider testing for other respiratory viruses or re-collecting for 2019-nCoV testing. Note: Optimum timing for peak viral levels during infections caused by 2019-nCoV have not been determined. Collection of multiple specimens from the same patient may be necessary to detect the virus. Limitations Positive results are indicative of active infection with SARS-CoV-2 but do not rule out bacterial infection or co-infection with other viruses. The agent detected may not be the definite cause of disease. In addition, detection of viral RNA may not indicate the presence of infectious virus or that SARS-CoV-2 is the causative agent for clinical symptoms. Negative results do not preclude SARS-CoV-2 infection and should not be used as the sole basis for patient management decisions. Negative results must be combined with clinical observations, patient history, and epidemiological information. False negative results may also occur if amplification inhibitors are present in the specimen or if inadequate numbers of organisms are present in the specimen. Optimum specimen types and timing for peak viral levels during infections caused by SARS-CoV-2 have not been fully determined. Collection of multiple specimens (types and time points) from the same patient may be necessary to detect the virus. The test was validated for use with upper respiratory specimens obtained via nasopharyngeal or oropharyngeal swabs in VTM, UTM, M4, M5, M6, saline, and MTM media. The performance of this test has not been established for other specimens. Specimens collected using other FDA recommended Specimen Collection Materials listed in the FDA COVID-19 [employer] communication (January 14, 2020) are processed with the caveat that they were not all validated for use with this test and the result must be interpreted in this context. Furthermore, a false negative results may occur if a specimen is improperly collected, transported or handled. If the virus mutates in the RT-PCR target region, SARS-CoV-2 may not be detected or may be detected less predictably. Inhibitors or other types of interference may produce a false negative result. An interference study evaluating the effect of common cold medications was not performed. This test is not FDA-cleared but its performance characteristics were established by our CLIA-certified, CAP-accredited, high complexity laboratory in accordance with CLIA regulations, [employer] of [place] (CAP) guidelines (Jan 07, 2020), and FDA guidance (Dec 19, 2019). This test is only for use under the Food and Drug Administration's Emergency Use Authorization. Performing Lab [facility] 07/20/2020 13:07 EDT [facility] Swab 07/19/2020 8:55 EDT 07/19/2020 15:54 EDT Provider Outr Resulting Lab MICROBIOLOGY - GENERAL ORDERABLES [facility] [address] [place], [place] [id number] [place] [address] LABORATORY [place], [place] documented in this encounter Visit Diagnoses Not on filedocumented in this encounter Care Teams Manufacturing Accountant Relationship Specialty Start Date End Date Gadiel Zavala MD PCP - General 08/27/15 documented as of this encounter
--- OUTSIDE RECORDS SUMMARY | 2024-05-05 15:27 | XMS_ITS | Encounter Summary ---
Author Organization [facility] Address [address] [place] [address] Care Team Providers Care Recruiting Manager Name Role Phone Unavailable Primary Care Provider Unavailabl e Encounter Details Date Type Department Care Team (Late st Contact Info) Description 03/01/2010 Abstract [facility] Plastic, Reconstructive & Cosmetic Surgery - [address], [address] [place], [place] [address] No Pcp, Ganglion cyst Social History Tobacco Use Types Packs/Day Years Used Date Smoking Tobacco: Never Assessed Sex and Gender Information Value Date Recorded Sex Assigned at Not on file Gender Identity Not on file Sexual Orientation Not on file documented as of this encounter Plan of Treatment Not on file documented as of this encounter Visit Diagnoses Diagnosis Ganglion cyst Ganglion, unspecified documented in this encounter
--- OUTSIDE RECORDS SUMMARY | 2024-05-05 15:27 | XMS_ITS | Referral Summary ---
Author Organization [facility] Address [address] [place] [address] Care Team Providers Care Heater Installer Name Role Phone Gadiel Zavala MD Primary Care Provider [phone] Encounters Date Type Department Care Team Description 04/29/2024 Lab Requisition [facility] Pathology & Laboratory Medicine - [address] [id number] Outr Resulting Lab, Provider from Last 3 Months Allergies No known active allergies Active Problems Problem Noted Date Diagnosed Date Ganglion 03/01/2010 Social History Tobacco Use Types Packs/Day Years Used Date Smoking Tobacco: Never Assessed Sex and Gender Information Value Date Recorded Sex Assigned at Not on file Gender Identity Not on file Sexual Orientation Not on file Plan of Treatment Not on file Procedures Procedure Name Priority Date/Time Associated Diagnosis Comments IGE Routine 04/28/2024 14:45 EDT from Last 3 Months Results * IGE (04/28/2024 14:45 EDT) IgE 23 <158 IU/mL 05/05/2024 13:17 EDT [facility] Blood VENOUS BLOOD / Unknown 04/28/2024 14:45 EDT 04/29/2024 17:43 EDT Provider Outr Resulting Lab CHEMISTRY & BLOOD GAS ORDERABLES [facility] [address] [place], [place] [address] from Last 3 Months Care Teams Heater Installer Relationship Specialty Start Date End Date Gadiel Zavala MD PCP - General 08/27/15
--- OUTSIDE RECORDS SUMMARY | 2024-05-05 15:27 | XMS_ITS | Encounter Summary ---
Author Organization [facility] Address [address] [place] [address] Care Team Providers Care Pipe Smoking Machine Operator Name Role Phone Unavailable Primary Care Provider Unavailabl e Encounter Details Date Type Department Care Team (Latest Contact Info) Description 07/22/2007 13:10 EDT Hospital Encounter [facility] - Maple conversion [address] [place] [address] Carlos Bullock MD [address] [place] [address] [address] [place] [address] Discharge Disposition: Auto Discharge Social History Tobacco Use Types Packs/Day Years Used Date Smoking Tobacco: Never Assessed Sex and Gender Information Value Date Recorded Sex Assigned at Not on file Gender Identity Not on file Sexual Orientation Not on file documented as of this encounter Discharge Disposition Disposition Code Departure Means Destination Auto Discharge documented in this encounter Plan of Treatment Not on file documented as of this encounter Visit Diagnoses Not on filedocumented in this encounter
--- OUTSIDE RECORDS SUMMARY | 2024-05-05 15:27 | XMS_ITS | Encounter Summary ---
Author Organization [facility] Address [address] [place] [address] Care Team Providers Care Aqueduct And Reservoir Keeper Name Role Phone Unavailable Primary Care Provider Unavailabl e Encounter Details Date Type Department Care Team (Latest Contact Info) Description 07/16/2007 20:14 EDT Hospital Encounter [facility] [address] [place] [address] Carlos Bullock MD [address] [place] [address] [place] [phone] Discharge Disposition: Auto Discharge Social History [...] Procedure Name Priority Date/Time Associated Diagnosis Comments MR EXTREMITY ELBOW W/WO CONTRAST 07/16/2007 22:09 EDT documented in this encounter Results * MR EXTREMITY ELBOW W/WO CONTRAST (07/16/2007 22:09 EDT) Anatomical Region Laterality Modality Other 07/16/2007 22:0 9 EDT Narrative 04/11/2009 2:06 EDT mass left wrist,progressive ulnar nerve disfunction MR EXTREMITY WRIST WWO ??Jul 16, 2007 10:09:00 PM Signs and Symptoms:: ??mass left wrist,progressive ulnar nerve dysfunction Comparison: None. Technique: Routine MR sequences were performed of the left wrist. Findings: Examination of the bone marrow demonstrates an irregular area of low signal intensity on T1-weighted sequences which is high signal intensity on T2 fat-sat sequences in the ulnar aspect of the distal radial epiphysis. This area enhances after the administration of gadolinium. The triangular fibrocartilage is normal in appearance. The ulnar nerve is normal in appearance and no mass is appreciated. The carpal tunnel is normal in appearance. The scapholunate and lunotriquetral ligaments are intact. The articular cartilage of the wrist is normal in appearance. There is no ganglion cyst identified. The extensor compartments are normal in appearance. Impression: 1. Ill defined signal hyperintensity is seen on fluid sensitive sequences in the radial epiphysis which demonstrates enhancement with postgadolinium. This may represent a developing ganglion cyst of the distal radius. No plain films are available for comparison. 2. No mass is appreciated. 3. The ulnar nerve course is normal appearance. Procedure Note Dwayne Sahu MD - 04/11/2009 mass left wrist,progressive ulnar nerve disfunction MR EXTREMITY WRIST WWO Jul 16, 2007 10:09:00 PM Signs and Symptoms:: mass left wrist,progressive ulnar nerve dysfunction Comparison: None. Technique: Routine MR sequences were performed of the left wrist. Findings: Examination of the bone marrow demonstrates an irregular area of low signal intensity on T1-weighted sequences which is high signal intensity on T2 fat-sat sequences in the ulnar aspect of the distal radial epiphysis. This area enhances after the administration of gadolinium. The triangular fibrocartilage is normal in appearance. The ulnar nerve is normal in appearance and no mass is appreciated. The carpal tunnel is normal in appearance. The scapholunate and lunotriquetral ligaments are intact. The articular cartilage of the wrist is normal in appearance. There is no ganglion cyst identified. The extensor compartments are normal in appearance. Impression: 1. Ill defined signal hyperintensity is seen on fluid sensitive sequences in the radial epiphysis which demonstrates enhancement with postgadolinium. This may represent a developing ganglion cyst of the distal radius. No plain films are available for comparison. 2. No mass is appreciated. 3. The ulnar nerve course is normal appearance. Carlos Bullock MD IMG MRI ORDERABLES documented in this encounter Visit Diagnoses Not on filedocumented in this encounter
--- OUTSIDE RECORDS SUMMARY | 2024-05-05 15:27 | XMS_ITS | Clinical Summary ---
Author Organization [facility] Address [address] [place] [address] Care Team Providers Care Librarian Special Collections Name Role Phone Gadiel Zavala MD Primary Care Provider [phone] Allergies No known active allergies Active Problems Problem Noted Date Diagnosed Date Ganglion 03/01/2010 Encounters Date Type Department Care Team Description 04/29/2024 Lab Requisition [facility] Pathology & Laboratory Medicine - [address] [id number] Outr Resulting Lab, Provider from Last 3 Months Social History Tobacco Use Types Packs/Day Years Used Date Smoking Tobacco: Never Assessed Sex and Gender Information Value Date Recorded Sex Assigned at Not on file Gender Identity Not on file Sexual Orientation Not on file Plan of Treatment Health Maintenance Due Date Last Done Comments Hepatitis C Screen 1970 Hepatitis B Vaccine (1 of 3 - 19+ 3-dose series) 03/13 COVID-19 Vaccine ( season) 2023 Procedures Procedure Name Priority Date/Time Associated Diagnosis Comments IGE Routine 04/28/2024 14:45 EDT from Last 3 Months Results * IGE (04/28/2024 14:45 EDT) IgE 23 <158 IU/mL 05/05/2024 13:17 EDT [facility] Blood VENOUS BLOOD / Unknown 04/28/2024 14:45 EDT 04/29/2024 17:43 EDT Provider Outr Resulting Lab CHEMISTRY & BLOOD GAS ORDERABLES [facility] [address] [place] [address] from Last 3 Months Care Teams Librarian Special Collections Relationship Specialty Start Date End Date Gadiel Zavala MD PCP - General 08/27/15
--- OUTSIDE RECORDS SUMMARY | 2024-05-05 15:27 | XMS_ITS | Encounter Summary ---
Author Organization [facility] Address [address] [place] [address] Care Team Providers Care Acid Concentrator Name Role Phone Gadiel Zavala MD Primary Care Provider [phone] Encounter Details Date Type Department Care Team (Late st Contact Info) Description 03/25/2015 Historical Results Only [facility] Radiology Results [address] [place] [phone] Jenny Chu MD [address] [place] [phone] Social History Tobacco Use Types Packs/Day Years Used Date Smoking Tobacco: Never Assessed Sex and Gender Information Value Date Recorded Sex Assigned at Not on file Gender Identity Not on file Sexual Orientation Not on file documented as of this encounter Plan of Treatment Not on file documented as of this encounter Procedures Procedure Name Priority Date/Time Associated Diagnosis Comments XR ELBOW RIGHT 1-2 VIEWS 03/25/2015 14:25 EDT documented in this encounter Results * XR ELBOW RIGHT 1-2 VIEWS (03/25/2015 14:25 EDT) Anatomical Region Laterality Modality Body Right Other 03/25/2015 14:2 5 EDT Narrative 03/25/2015 14:[address] [address] Diagnostic Imaging Report Signed Patient Name:YOEL EDWARDS ? Date of :1970 ? MR Number:[id number] Age:45 ?Sex:M Category: CR ? Date of Exam:03/25/15 Procedure: CR: Elbow, RT; 2 views ? Ordering Physician: Jenny Chu ?? CC: Optional Provider Jenny Chu MD RIGHT ELBOW The patient has a history of fall with laceration. Two views were submitted with no prior study available for comparison. No acute fracture or josh dislocation is seen. ??No focal suspicious mineralization abnormality involving the bones is noted. ??There is focal soft tissue swelling about the posterolateral aspect of the proximal forearm. ??Soft tissue air is seen as well. No other significant finding seen. IMPRESSION: ??Soft tissue injury, as described above. ??No underlying bone or joint abnormality seen. ZAMORA/areli Dictated by: Leeanne Zamora ? D/ 1446 Transcribed by: JAZMIN ? D/ 42 E-Signed by: <Electronically signed by Leeanne Zamora ??MD> ? D/ 4 Procedure Note Timothy Zamora MD - 07/21/2019 [place] [id number] Diagnostic Imaging Report Signed Patient Name:YOEL EDWARDS EAccount Number:[id number] Date of :1970 MRNumber:[id number] Age:45 Sex:M Category: CR Date ofExam:03/25/15 Procedure: CR: Elbow, RT; 2 viewsAccession: [id number] Ordering Physician: Jenny Chu MD CC: Optional Provider Jenny Chu MD RIGHT ELBOW The patient has a history of fall with laceration. Two views were submitted with no prior study available for comparison. No acute fracture or josh dislocation is seen. No focal suspiciousmineralization abnormality involving the bones is noted. There is focal soft tissue swelling aboutthe posterolateral aspect of the proximal forearm. Soft tissue air is seen as well. No other significant finding seen. IMPRESSION: Soft tissue injury, as described above. No underlying boneor joint abnormality seen. MADISON/areli Dictated by: Leeanne Zamora MDD/ 1446 Transcribed by: LEOPOLDO/ 42 E-Signed by: <Electronically signed by Leeanne Zamora MD>D/ 4 Jenny Chu MD IMG DIAGNOSTIC IMAGING ORDERABLES documented in this encounter Visit Diagnoses Not on filedocumented in this encounter Care Teams Acid Concentrator Relationship Specialty Start Date End Date Gadiel Zavala MD PCP - General 08/27/15 documented as of this encounter
--- OUTSIDE RECORDS SUMMARY | 2024-05-05 15:28 | XMS_ITS | Encounter Summary ---
Author Organization [facility] Address [address] [place] [address] Care Team Providers Care Director Of Manufacturing Name Role Phone Unavailable Primary Care Provider Unavailabl e Encounter Details Date Type Department Care Team (Latest Contact Info) Description 06/24/2007 15:58 EDT Hospital Encounter [facility] - Other [address] [place] [address] Carlos Bullock MD [address] [place] [address] [address] [place] [address] Discharge Disposition: Auto Discharge Social [...]
== END 2024-05-05 15:27 | disposition home or self-care (01) ==
LOC: RT 15:26
PROVIDERS: PCP Family Medicine; Visit Provider Physician Assistant Surgical
DX: J44.9 Chronic obstructive pulmonary disease, unspecified (principal)
CPT/HCPCS: 94762

== ENCOUNTER 2024-06-09 02:13 | Outpatient (CLI) | payer MEDICAID, SELFPAY ==
--- OUTSIDE RECORDS SUMMARY | 2024-06-09 02:25 | XMS_ITS | Clinical Summary ---
Author Organization [facility] Address [address] [place] [address] Care Team Providers Care Neurology Manager Name Role Phone Gadiel Zavala MD Primary Care Provider [phone] Allergies No known active allergies Active Problems Problem Noted Date Diagnosed Date Ganglion 03/01/2010 Encounters Date Type Department Care Team Description 04/29/2024 Lab Requisition [facility] Pathology & Laboratory Medicine - [address] [phone] Outr Resulting Lab, Provider from Last 3 [...] IgE 23 <158 IU/mL 05/05/2024 13:17 EDT [facility] Blood VENOUS BLOOD / Unknown 04/28/2024 14:45 EDT 04/29/2024 17:43 EDT Provider Outr Resulting Lab CHEMISTRY & BLOOD GAS ORDERABLES [facility] [address] [place] [address] from Last 3 Months Care Teams Neurology Manager Relationship Specialty Start Date End Date Gadiel Zavala MD PCP - General 08/27/15
--- OUTSIDE RECORDS SUMMARY | 2024-06-09 02:25 | XMS_ITS | Encounter Summary ---
Author Organization [facility] Address [address] [place] [address] Care Team Providers Care Retort Pre Cooker Name Role Phone Gadiel Zavala MD Primary Care Provider [phone] Encounter Details Date Type Department Care Team (Late st Contact Info) Description 04/29/2024 Lab Requisition [facility] Pathology & Laboratory Medicine - [address] [address] Outr Resulting Lab, Provider Social [...] IgE 23 <158 IU/mL 05/05/2024 13:17 EDT [facility] Blood VENOUS BLOOD / Unknown 04/28/2024 14:45 EDT 04/29/2024 17:43 EDT Provider Outr Resulting Lab CHEMISTRY & BLOOD GAS ORDERABLES [facility] [address] [place], [place] [phone] documented in this encounter Visit Diagnoses Not on filedocumented in this encounter Care Teams Retort Pre Cooker Relationship Specialty Start Date End Date Gadiel Zavala MD PCP - General 08/27/15 documented as of this encounter
--- OUTSIDE RECORDS SUMMARY | 2024-06-09 02:25 | XMS_ITS | Encounter Summary ---
Author Organization [facility] Address [address] [place] [address] Care Team Providers Care Inbound Sales Consultant Name Role Phone Gadiel Zavala MD Primary Care Provider [phone] Encounter Details Date Type Department Care Team (Late st Contact Info) Description 03/25/2015 Historical Results Only [facility] Radiology Results [address] [place] [address] Jenny Chu MD [address] [place] [phone] Social History Tobacco Use Types Packs/Day [...] 14:2 5 EDT Narrative 03/25/2015 14:[address] [address] Diagnostic Imaging Report Signed Patient Name:YOEL EDWARDS ? Date of :1970 ? MR Number:[id number] Age:45 ?Sex:M Category: CR ? Date of [...] Procedure Note Timothy Zamora MD - 07/21/2019 [place] [id number] Diagnostic Imaging Report Signed Patient Name:YOEL EDWARDS EAccount Number:[id number] Date of :1970 MRNumber:[id number] Age:45 Sex:M Category: CR Date ofExam:03/25/15 Procedure: CR: Elbow, RT; 2 viewsAccession: [id number] Ordering Physician: Jenny Chu MD CC: Optional [...] on filedocumented in this encounter Care Teams Inbound Sales Consultant Relationship Specialty Start Date End Date Gadiel Zavala MD PCP - General 08/27/15 documented as of this encounter
--- OUTSIDE RECORDS SUMMARY | 2024-06-09 02:25 | XMS_ITS | Referral Summary ---
Author Organization [facility] Address [address] [place] [address] Care Team Providers Care Brake Reliner Name Role Phone Gadiel Zavala MD Primary Care Provider [phone] Encounters Date Type Department Care Team Description 04/29/2024 Lab Requisition [facility] Pathology & Laboratory Medicine - [address] [phone] Outr Resulting Lab, Provider from Last 3 [...] 23 <158 IU/mL 05/05/2024 13:17 EDT [facility] Blood VENOUS BLOOD / Unknown 04/28/2024 14:45 EDT 04/29/2024 17:43 EDT Provider Outr Resulting Lab CHEMISTRY & BLOOD GAS ORDERABLES [facility] [address] [place], [place] [address] from Last 3 Months Care Teams Brake Reliner Relationship Specialty Start Date End Date Gadiel Zavala MD PCP - General 08/27/15
--- OUTSIDE RECORDS SUMMARY | 2024-06-09 02:25 | XMS_ITS | Encounter Summary ---
Author Organization [facility] Address [address] [place] [address] Care Team Providers Care Legal Nurse Consultant Name Role Phone Unavailable Primary Care Provider Unavailabl e Encounter Details Date Type Department Care Team (Late st Contact Info) Description 03/01/2010 Abstract [facility] Plastic, Reconstructive & Cosmetic Surgery - [address], [address] [place], [place] [address] No Pcp, Ganglion cyst Social History Tobacco [...]
--- OUTSIDE RECORDS SUMMARY | 2024-06-09 02:25 | XMS_ITS | Encounter Summary ---
Author Organization [facility] Address [address] [place] [address] Care Team Providers Care Brooch And Bracelet Maker Name Role Phone Unavailable Primary Care Provider Unavailabl e Encounter Details Date Type Department Care Team (Late st Contact Info) Description 02/28/2010 Abstract [facility] Plastic, Reconstructive & Cosmetic Surgery - [address], [address] [place], [place] [address] No Pcp, Social History Tobacco Use Types [...]
--- OUTSIDE RECORDS SUMMARY | 2024-06-09 02:25 | XMS_ITS | Encounter Summary ---
Author Organization [facility] Address [address] [place] [address] Care Team Providers Care Agency Appointments Supervisor Name Role Phone Unavailable Primary Care Provider Unavailabl e Encounter Details Date Type Department Care Team (Latest Contact Info) Description 07/22/2007 13:10 EDT Hospital Encounter [facility] - Maple conversion [address] [place] [address] Carlos Bullock MD [address] [place] [address] [address] [place] [address] Discharge Disposition: Auto Discharge Social [...]
--- OUTSIDE RECORDS SUMMARY | 2024-06-09 02:25 | XMS_ITS | Encounter Summary ---
Author Organization [facility] Address [address] [place] [address] Care Team Providers Care Otm Consultant Name Role Phone Unavailable Primary Care Provider Unavailabl e Encounter Details Date Type Department Care Team (Latest Contact Info) Description 07/16/2007 20:14 EDT Hospital Encounter [facility] [address] [place] [address] Carlos Bullock MD [address] [place] [address] [place] [phone] Discharge Disposition: Auto Discharge Social History [...]
--- OUTSIDE RECORDS SUMMARY | 2024-06-09 02:25 | XMS_ITS | Encounter Summary ---
Author Organization [facility] Address [address] [place] [address] Care Team Providers Care Manager Style Name Role Phone Gadiel Zavala MD Primary Care Provider [phone] Encounter Details Date Type Department Care Team (Late st Contact Info) Description 07/19/2020 Lab Requisition [facility] Pathology & Laboratory Medicine - [address] [address] Outr Resulting Lab, Provider Social History Tobacco [...] in accordance with CLIA regulations, [employer] [place] (CAP) guidelines (Jan 07, 2020), and FDA guidance (Dec 19, 2019). This test is only for use under the Food and Drug Administration's Emergency Use Authorization. Swab ENTIRE NASOPHARYNX / Unknown 07/19/2020 8:55 EDT 07/19/2020 15:54 EDT Provider Outr Resulting Lab MICROBIOLOGY - GENERAL ORDERABLES [facility] [place] * COVID-19 TESTING (07/19/2020 8:55 EDT) COVID-19 rt-PCR Result NEGATIVE Negative 07/20/2020 13:07 EDT [facility] Comment: 2019-novel Coronavirus (2019-nCoV) not detected [...] in accordance with CLIA regulations, [employer] of [place] (CAP) guidelines (Jan 07, 2020), and FDA guidance (Dec 19, 2019). This test is only for use under the Food and Drug Administration's Emergency Use Authorization. Performing Lab [facility] 07/20/2020 13:07 EDT [facility] Swab 07/19/2020 8:55 EDT 07/19/2020 15:54 EDT Provider Outr Resulting Lab MICROBIOLOGY - GENERAL ORDERABLES [facility] [address] [place], [place] [id number] [place] [address] LABORATORY [place], [place] documented in this encounter Visit Diagnoses Not on filedocumented in this encounter Care Teams Manager Style Relationship Specialty Start Date End Date Gadiel Zavala MD PCP - General 08/27/15 documented as of this encounter
--- OUTSIDE RECORDS SUMMARY | 2024-06-09 02:25 | XMS_ITS | Encounter Summary ---
Author Organization [facility] Address [address] [place] [address] Care Team Providers Care Slitter Scorer Name Role Phone Unavailable Primary Care Provider Unavaildevin e Encounter Details Date Type Department Care Team (Latest Contact Info) Description 06/24/2007 15:58 EDT Hospital Encounter [facility] - Other [address] [place] [address] Carlos Bullock MD [address] [place] [address] [address] [place] [address] Discharge Disposition: Auto Discharge Social [...]
--- OUTSIDE RECORDS SUMMARY | 2024-06-09 02:25 | XMS_ITS | Encounter Summary ---
Author Organization [facility] Address [address] [place] [address] Care Team Providers Care Vacuum Filter Operator Name Role Phone Unavailable Primary Care Provider Unavaildevin e Encounter Details Date Type Department Care Team (Late st Contact Info) Description 06/24/2007 Before PRISM Converted Visit (Maple) [facility] - Maple conversion [address] [place] [address] Carlos Bullock MD [address] [place] [address] [address] [place] [address] Social History Tobacco Use Types [...] Mullins or Kenny Rios about his possibility. [id number] Signed by Carlos Bullock MD 07/29/2007 14:56 Carlos Bullock MD - Tere Bullock MD A - dk Job ID: [id number] Document ID: [id number] cc: MD Florentin Tse MD documented in this encounter Consult Notes * Carlos Bullock MD - 08/26/2009 1422 EST DIVISION OF PLASTIC SURGERY CONSULTATION - 06/24/2007 A consultation was requested by Violetta Graves NP for evaluation of weakness and dysfunction of the left hand. Violetta Graves NP [facility] [address] [place] [address] Dear Ms. Graves: Thank you very much [...] his left wrist. He was treated at [facility] with an apparent sural nerve graft. The patient reports that he has had normal sensation throughout the entire left hand but has had some weakness and over the past few years he has noticed progressive worsening of the weakness and dysfunction in his left hand. He presented to Dr. Horne at [facility] in [address] Horne noted some ganglion cyst in the palm and left wrist. Since that time, he has had continued weakness with some initial improvement after the surgery. He currently is unemployed in his current vocation of [employer]. The patients past medical history is reviewed. [...] his wrist prior to his surgery in [facility]. On examination the patient is a pleasant, [...] He is able to give a good induction brazer to me right now butwith relative weakness [...] also attempt to obtain his records from [facility] and from his primary care physician in [facility]. He will return following the completion of the magnetic resonance imaging. I want to thank you for sending me this patient in consultation. If there are any further questions, please do not hesitate to contact me. Sincerely, [id number] Signed by Carlos Bullock MD 07/10/2007 09:22 Elias Bullock, Sarah Bullock MD Carlos Bullock MD - Tere Bullock MD A - chr Job ID: [id number] Document ID: [id number] cc: MD Violetta Tse NP James Murphy, MD documented in this encounter Plan of Treatment Not on file documented as of this encounter Visit Diagnoses Not on filedocumented in this encounter
[2024-06-09] MEDS: Inhaler, Assist Device 1 EACH MC (16:27)
[2024-06-09] MEDS: Levalbuterol HFA 15 GM INH 4 PUFF IH (16:27)
--- NOTE | 2024-06-10 12:37 | W.PFT ---
Date of service: 06/09/24 Time of Service: 14:00 Pulmonary Function Test Result Requesting Provider Gladis Mcnair Indications: COPD Impression Spirometry shows severe decrease in FEV1/FVC at 33%. Very severe decrease in FEV1 at 17%. Significant reversibility after albuterol going up to 22%. Decrease lung volumes and increased air trapping. There is severe decrease in diffusion at 37%. Flow-volume curve suggest obstruction. Impression Very severe obstructive ventilatory defect with significant reversibility, restrictive ventilatory defect with air trapping, and very severe decrease in DLCO. Clinical Correlation therefore is recommended.
--- NOTE | 2024-06-17 13:44 | W.NOCTURNAL ---
Date of service: 06/09/24 Time of Service: 18:00 Nocturnal Oximetry Note: Overnight oximetry on room air. Patient demonstrated 15 minutes below 88% with lowest O2 saturations of 66%.
== END 2024-06-09 02:14 | disposition home or self-care (01) ==
LOC: RT 02:13
PROVIDERS: PCP Family Medicine; Visit Provider Physician Assistant Surgical
DX: J44.9 Chronic obstructive pulmonary disease, unspecified (principal)
CPT/HCPCS: 00123; 94060; 94726; 94729; 94762

== ENCOUNTER 2024-07-10 15:06 | Outpatient (REF) | payer MEDICAID, SELFPAY ==
--- OUTSIDE RECORDS SUMMARY | 2024-07-10 15:14 | XMS_ITS | Encounter Summary ---
Author Organization [facility] [place] [address] Care Team Providers Care Rendering Equipment Tender Name Role Phone Gadiel Zavala MD Primary Care Provider [phone] Encounter Details Date Type Department Care Team (Late st Contact Info) Description 05/29/2024 Interpretation Only Radiology Library at [facility] [address] Unknown None Social History Tobacco Use Types Packs/Day Years Used Date Smoking Tobacco: Never Assessed Sex and Gender Information Value Date Recorded Sex Assigned at Not on file Gender Identity Not on file Sexual Orientation Not on file documented as of this encounter Plan of Treatment Upcoming Encounters Date Type Department Care Team (Late st Contact Info) Description 07/15/2024 4:00 PM EDT [place] [address] David Lopez MD [facility] [place] [address] documented as of this encounter Procedures Procedure Name Priority Date/Time Associated Diagnosis Comments FILM LIBRARY STORAGE ONLY NM PET/CT Routine 05/29/2024 1:10 PM EDT documented in this encounter Results * Film Library- Storage Only NM Pet / CT (05/29/2024 1:10 PM EDT) 06/16/2024 9:10 PM EDT Narrative [facility] - 06/16/2024 9:10 PM EDT This exam is auto-finalizing. It's purpose is for storage only. Unknown IMG FILM LIBRARY ORD ERABLES [facility] [place], [place] documented in this encounter Visit Diagnoses Not on filedocumented in this encounter Care Teams Rendering Equipment Tender Relationship Specialty Start Date End Date Gadiel Zavala MD [address] [place] [address] PCP - General 02/09/19 06/29/24 documented as of this encounter
--- OUTSIDE RECORDS SUMMARY | 2024-07-10 15:14 | XMS_ITS | Encounter Summary ---
Author Organization [facility] [place] [address] Care Team Providers Care Packager Or Packer And Weigher Name Role Phone Gadiel Zavala MD Primary Care Provider [phone] Encounter Details Date Type Department Care Team (Late st Contact Info) Description 05/29/2024 1:10 PM EDT Ancillary Procedure Radiology Library at [facility] [address] Unknown None Social History Tobacco Use Types [...] 4:00 PM EDT [place] [address] David Lopez MD [facility] [place] [address] documented as of this encounter Procedures Procedure Name Priority Date/Time Associated Diagnosis Comments FILM LIBRARY STORAGE ONLY NM PET/CT Routine 05/29/2024 1:10 PM EDT documented in this encounter Results * Film Library- Storage Only NM Pet / CT (05/29/2024 1:10 PM EDT) 06/16/2024 9:10 PM EDT Narrative [facility] - 06/16/2024 9:10 PM EDT This exam is auto-finalizing. It's purpose is for storage only. Unknown IMG FILM LIBRARY ORD ERABLES [place], [place] documented in this encounter Visit Diagnoses Not on filedocumented in this encounter Care Teams Packager Or Packer And Weigher Relationship Specialty Start Date End Date Gadiel Zavala MD [address] [place] [address] PCP - General 02/09/19 06/29/24 documented as of this encounter
--- OUTSIDE RECORDS SUMMARY | 2024-07-10 15:14 | XMS_ITS | Encounter Summary ---
Author Organization [facility] [address] Care Team Providers Care Therapeutic Strategy Lead Name Role Phone Darell Ivan DO Primary Care Provider [phone] Encounter Details Date Type Department Care Team (Late st Contact Info) Description 07/07/2024 [place] [address] Jenny Samuel Social History Tobacco Use Types Packs/Day Years [...] 4:00 PM EDT [place] [address] David Lopez MD [facility] [place] [address] documented as of this encounter Visit Diagnoses Not on filedocumented in this encounter Care Teams Therapeutic Strategy Lead Relationship Specialty Start Date End Date Darell Ivan DO [address] [place] [address] PCP - General Family Medicine 06/30/24 documented as of this encounter
--- OUTSIDE RECORDS SUMMARY | 2024-07-10 15:14 | XMS_ITS | Encounter Summary ---
Author Organization [facility] Address [address] [place] [address] Care Team Providers Care Planting Material Remover Name Role Phone Unavailable Primary Care Provider Unavailabl e Encounter Details Date Type Department Care Team (Late st Contact Info) Description 03/01/2010 [facility]astic[facility] Re[facility]ive [facility] Cosmetic Surgery - [address], [address] [place], [place] [address] No Pcp, Ganglion cyst Social History Tobacco [...]
--- OUTSIDE RECORDS SUMMARY | 2024-07-10 15:14 | XMS_ITS | Clinical Summary ---
Author Organization [facility] [place] [address] Care Team Providers Care Quartz Mounter Name Role Phone Darell Ivan DO Primary Care Provider [phone] Allergies No known active allergies Medications Medication Sig Dispensed Refills Start Date End Date Status hydroCODone-acetaminophe n (VICODIN) 5-500 mg per tablet 1 Tablet(s), PO, Q4-6H,PRN 10/01/2002 Active docusate sodium (COLACE) 100 mg capsule 100mg, PO, BID 10/01/2002 Active Encounters Date Type Department Care Team Description 07/07/2024 Telephone [place] [address] Jenny Samuel 06/30/2024 Transcribe Orders eDH Incoming Referrals [phone] Diane Saldivar MD Pulmonary nodules; Chronic obstructive pulmonary disease, unspecified COPD type; Chronic hypoxic respiratory failure, on home oxygen therapy; Dependence on supplemental oxygen 05/29/2024 1:10 PM EDT Ancillary Procedure Radiology Library at [facility] SHAYNA Schreiber [address] Unknown 05/29/2024 Interpretation Only Radiology Library at [facility] [place] [address] Unknown from Last 3 Months Social History Tobacco Use Types Packs/Day Years Used Date Smoking Tobacco: Never Assessed Sex and Gender Information Value Date Recorded Sex Assigned at Not on file Gender Identity Not on file Sexual Orientation Not on file Plan of Treatment Upcoming Encounters Date Type Department Care Team (Late st Contact Info) Description 07/15/2024 4:00 PM EDT Office [place] [address] David Lopez MD [facility] [place] [address] Health Maintenance Due Date Last Done Comments CT Colonography 1970 Colonoscopy 1970 Colorectal Cancer Screening 1970 FIT DNA 1970 FIT 1970 Sigmoidoscopy (10 year) with FIT yearly 1970 Sigmoidoscopy 1970 HIV screen 1988 Hepatitis C Screening 1988 Lipid Screening 1988 Hepatitis B vaccine (0-59 yrs) (1) 1989 Tdap adult 1989 Tetanus vaccine 1989 Zoster vaccine (1 of 2) 2020 Covid-19 Vaccine (1 - season) 2024 Influenza (Flu) vaccine (1 o f 1 - Influenza standard series) 06/21/2024 Procedures Procedure Name Priority Date/Time Associated Diagnosis Comments PFT SCAN 06/09/2024 12:00 AM EDT FILM LIBRARY STORAGE ONLY NM PET/CT Routine 05/29/2024 1:10 PM EDT PET SCAN (SCAN) 05/29/2024 12:00 AM EDT PET SCAN (SCAN) 05/29/2024 12:00 AM EDT PFT SCAN 05/07/2024 12:00 AM EDT ORDS - PROVIDER CARE SCAN 04/10/2024 12:00 AM EDT from Last 3 Months Results * Scan Doc: PFT (06/09/2024 12:00 AM EDT) Narrative 06/09/2024 12:00 AM EDT Ordered by an unspecified provider. Scanning Provider MEDIA MGR SCAN EXT O RDR/RSLT * Film Library- Storage Only NM Pet / CT (05/29/2024 1:10 PM EDT) 06/16/2024 9:10 PM EDT Narrative RAD - 06/16/2024 9:10 PM EDT This exam is auto-finalizing. It's purpose is for storage only. Unknown IMG FILM LIBRARY ORD ERABLES [place], [place] * Scan Doc: PET Scan (05/29/2024 12:00 AM EDT) Only the most recent of2 resultswithin the time period is included. Anatomical Region Laterality Modality Other Narrative 05/29/2024 12:00 AM EDT Ordered by an unspecified provider. Scanning Provider MEDIA MGR SCAN EXT O RDR/RSLT * Scan Doc: PFT (05/07/2024 12:00 AM EDT) Narrative 05/07/2024 12:00 AM EDT Ordered by an unspecified provider. Scanning Provider MEDIA MGR SCAN EXT O RDR/RSLT * Scan Doc: Ords - Provider Care (04/10/2024 12:00 AM EDT) Narrative 04/10/2024 12:00 AM EDT Ordered by an unspecified provider. Scanning Provider MEDIA MGR SCAN EXT O RDR/RSLT from Last 3 Months Care Teams Quartz Mounter Relationship Specialty Start Date End Date Darell Ivan DO [address] [place] [address] PCP - General Family Medicine 06/30/24
--- OUTSIDE RECORDS SUMMARY | 2024-07-10 15:14 | XMS_ITS | Clinical Summary ---
Author Organization [facility] Address [address] [place] [address] Care Team Providers Care Heating Unit Installer Name Role Phone Gadiel Zavala MD Primary Care Provider [phone] Allergies No known active allergies Active Problems Problem Noted Date Diagnosed Date Ganglion 03/01/2010 Encounters Date Type Department Care Team Description 07/10/2024 Lab Requisition [facility] Pathology & Laboratory Medicine [address] [address] Outr Resulting Lab, Provider 04/29/2024 Lab Requisition [facility] Pathology & Laboratory [facility] [address] [place] [address] Outr Resulting Lab, Provider from Last 3 [...] IgE 23 <158 IU/mL 05/05/2024 13:17 EDT [facility] Blood VENOUS BLOOD / Unknown 04/28/2024 14:45 EDT 04/29/2024 17:43 EDT Provider Outr Resulting Lab CHEMISTRY & BLOOD GAS ORDERABLES [facility] [address] [place] [address] from Last 3 Months Care Teams Heating Unit Installer Relationship Specialty Start Date End Date Gadiel Zavala MD PCP - General 08/27/15
--- OUTSIDE RECORDS SUMMARY | 2024-07-10 15:14 | XMS_ITS | Encounter Summary ---
Author Organization [facility] Address [address] [place] [address] Care Team Providers Care Director Of Database Marketing Name Role Phone Unavailable Primary Care Provider Unavailabl e Encounter Details Date Type Department Care Team (Late st Contact Info) Description 06/24/2007 Before PRISM Converted Visit (Maple) [facility] - Maple conversion [address] [place] [address] Carlos Bullock MD [address] [place] [address] [address] [place] [address] Social History Tobacco Use Types [...] Mullins or Kenny Rios about his possibility. [id number] Signed by Carlos Bullock MD 07/29/2007 14:56 Carlos Bullock MD - Tere Bullock MD A - dk Job ID: [id number] Document ID: [id number] cc: MD Florentin Tse MD documented in this encounter Consult Notes * Carlos Bullock MD - 08/26/2009 1422 EST DIVISION OF PLASTIC SURGERY CONSULTATION - 06/24/2007 A consultation was requested by Violetta Graves NP for evaluation of weakness and dysfunction of the left hand. Violetta Graves NP [facility] [address] [place] [address] Dear Ms. Graves: Thank you very much [...] his left wrist. He was treated at [facility] with an apparent sural nerve graft. The patient reports that he has had normal sensation throughout the entire left hand but has had some weakness and over the past few years he has noticed progressive worsening of the weakness and dysfunction in his left hand. He presented to Dr. Horne at [facility] in [address] Horne noted some ganglion cyst in the palm and left wrist. Since that time, he has had continued weakness with some initial improvement after the surgery. He currently is unemployed in his current vocation of [employer]. The patients past medical history is reviewed. [...] his wrist prior to his surgery in [facility]. 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 He will return following the completion of the magnetic resonance imaging. I want to thank you for sending me this patient in consultation. If there are any further questions, please do not hesitate to contact me. Sincerely, [id number] Signed by Carlos Bullock MD 07/10/2007 09:22 Elias Bullock, Sarah Bullock MD Carlos Bullock MD - Tere Bullock MD A - chr Job ID: [id number] Document ID: [id number] cc: MD Violetta Tse NP James Murphy, MD documented in this encounter Plan of Treatment Not on file documented as of this encounter Visit Diagnoses Not on filedocumented in this encounter
--- OUTSIDE RECORDS SUMMARY | 2024-07-10 15:14 | XMS_ITS | Encounter Summary ---
Author Organization [facility] Address [address] [place] [address] Care Team Providers Care Inspector Exhaust Emissions Name Role Phone Gadiel Zavala MD Primary Care Provider [phone] Encounter Details Date Type Department Care Team (Late st Contact Info) Description 03/25/2015 Historical Results Only [facility] Radiology Results [address] [place] [id number] Jenny Chu MD [address] [place] [address] Social History Tobacco Use Types Packs/Day [...] 14:2 5 EDT Narrative 03/25/2015 14:[address] [address] Diagnostic Imaging Report Signed Patient Name:YOEL EDWARDS ? Date of :1970 ? MR Number:[id number] Age:45 ?Sex:M Category: CR ? Date of [...] Procedure Note Timothy Zamora MD - 07/21/2019 [place] [id number] Diagnostic Imaging Report Signed Patient Name:YOEL EDWARDS EAccount Number:[id number] Date of :1970 MRNumber:[id number] Age:45 Sex:M Category: CR Date ofExam:03/25/15 Procedure: CR: Elbow, RT; 2 viewsAccession: [id number] Ordering Physician: Jenny Chu MD CC: Optional [...] on filedocumented in this encounter Care Teams Inspector Exhaust Emissions Relationship Specialty Start Date End Date Gadiel Zavala MD PCP - General 08/27/15 documented as of this encounter
--- OUTSIDE RECORDS SUMMARY | 2024-07-10 15:14 | XMS_ITS | Referral Summary ---
Author Organization [facility] Address [address] [place] [address] Care Team Providers Care Foreign Trade Teacher Name Role Phone Gadiel Zavala MD Primary Care Provider [phone] Encounters Date Type Department Care Team Description 07/10/2024 Lab Requisition [facility] [address] [address] Outr Resulting Lab, Provider 04/29/2024 Lab Requisition [facility] [address] [place] [address] Outr Resulting Lab, Provider from Last 3 [...] IgE 23 <158 IU/mL 05/05/2024 13:17 EDT [facility] Blood VENOUS BLOOD / Unknown 04/28/2024 14:45 EDT 04/29/2024 17:43 EDT Provider Outr Resulting Lab CHEMISTRY & BLOOD GAS ORDERABLES [facility] [address] [place] [address] from Last 3 Months Care Teams Foreign Trade Teacher Relationship Specialty Start Date End Date Gadiel Zavala MD PCP - General 08/27/15
--- OUTSIDE RECORDS SUMMARY | 2024-07-10 15:14 | XMS_ITS | Encounter Summary ---
Author Organization [facility] [place] [address] Care Team Providers Care Loading Machine Operator Name Role Phone Gadiel Zavala MD Primary Care Provider [phone] Encounter Details Date Type Department Care Team (Late st Contact Info) Description 12/03/2022 Ancillary Procedure Radiology Library at [facility] [place] [address] Diane Saldivar MD [address] [place] [address] [place] [address] Social History Tobacco Use Types Packs/Day Years [...] 4:00 PM EDT Office [place] [address] David Lopez MD [facility] [place] [address] documented as of this encounter Procedures Procedure Name Priority Date/Time Associated Diagnosis Comments FILM LIBRARY STORAGE ONLY CT CHEST Routine 12/03/2022 12:00 AM EST documented in this encounter Results * Film Library- Storage Only CT Chest (12/03/2022 12:00 AM EST) Narrative RAD - 06/30/2024 9:09 PM EDT This exam is auto-finalizing. It's purpose is for storage only. Diane Saldivar MD IMG FILM LIBRARY OR DERABLES [place], [place] documented in this encounter Visit Diagnoses Not on filedocumented in this encounter Care Teams Loading Machine Operator Relationship Specialty Start Date End Date Gadiel Zavala MD [address] [place] [address] PCP - General 02/09/19 06/29/24 documented as of this encounter
--- OUTSIDE RECORDS SUMMARY | 2024-07-10 15:14 | XMS_ITS | Encounter Summary ---
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 BOARD DISCUSSION, ?EBU'S VS CT GUIDED BX Diane Saldivar MD [address] [place] [address] [place] [address] [facility] Pulmonology [address] [place] [phone] Referral ID Status Reason Start Date Expiration Date Visits Requested Visits Authorized [id number] Authorized Consult, Test & Treat PCP Updated and/or Approved 06/30/2024 06/30/2025 6 6 Encounter Details Date Type Department Care Team (Late st Contact Info) Description 06/30/2024 Transcribe Orders eDH Incoming Referrals [phone] Diane Saldivar MD [address] [place] [address] [place] [address] Pulmonary nodules; Chronic obstructive pulmonary disease, unspecified COPD type; Chronic hypoxic respiratory failure, on home oxygen therapy; Dependence on supplemental oxygen Social History Tobacco Use Types Packs/Day Years [...] 4:00 PM EDT Office [place] [address] David Lopez MD [facility] [place] [address] Scheduled Referrals Name Type Priority Associated Diagnoses Orde r Schedule Referral to Pulmonology Outpatient Referral Routine Pulmonary nodules Chronic obstructive pulmonary disease, unspecified COPD type Chronic hypoxic respiratory failure, on home oxygen therapy Dependence on supplemental oxygen Ordered: 06/30/2024 documented as of this encounter Visit Diagnoses Diagnosis Pulmonary nodules Other nonspecific abnormal finding of lung field Chronic obstructive pulmonary disease, unspecified COPD type Chronic hypoxic respiratory failure, on home oxygen therapy Dependence on supplemental oxygen documented in this encounter Care Teams Senior Instrumentation Engineer Relationship Specialty Start Date End Date Darell Ivan DO [address] [facility] [place] [address] PCP - General Family Medicine 06/30/24 documented as of this encounter
--- OUTSIDE RECORDS SUMMARY | 2024-07-10 15:14 | XMS_ITS | Encounter Summary ---
Author Organization [facility] [place] [address] Care Team Providers Care Die Maker Name Role Phone Gadiel Zavala MD Primary Care Provider [phone] Encounter Details Date Type Department Care Team (Late st Contact Info) Description 04/04/2024 Ancillary Procedure Radiology Library at [facility] [place] [address] Diane Saldivar MD [address] [place] [address] [place] [address] Social History Tobacco Use Types Packs/Day Years [...] 4:00 PM EDT Office [place] [address] David Lopez MD [facility] [address] documented as of this encounter Procedures Procedure Name Priority Date/Time Associated Diagnosis Comments FILM LIBRARY STORAGE ONLY CT CHEST Routine 04/04/2024 12:00 AM EDT documented in this encounter Results * Film Library- Storage Only CT Chest (04/04/2024 12:00 AM EDT) Narrative [facility] - 06/30/2024 9:11 PM EDT This exam is auto-finalizing. It's purpose is for storage only. Diane Saldivar MD IMG FILM LIBRARY OR DERABLES [place], [place] documented in this encounter Visit Diagnoses Not on filedocumented in this encounter Care Teams Die Maker Relationship Specialty Start Date End Date Gadiel Zavala MD [address] [place] [address] PCP - General 02/09/19 06/29/24 documented as of this encounter
--- OUTSIDE RECORDS SUMMARY | 2024-07-10 15:14 | XMS_ITS | Encounter Summary ---
Author Organization [facility] [place] [address] Care Team Providers Care Holistic Nutritionist Name Role Phone Gadiel Zavala MD Primary Care Provider [phone] Encounter Details Date Type Department Care Team (Late st Contact Info) Description 09/19/2023 Ancillary Procedure Radiology Library at [facility] [place] [address] Diane Saldivar MD [address] [place] [address] [place] [address] Social History Tobacco Use Types Packs/Day Years [...] 4:00 PM EDT Office [place] [address] David Lopez MD [facility] [place] [address] documented as of this encounter Procedures Procedure Name Priority Date/Time Associated Diagnosis Comments FILM LIBRARY STORAGE ONLY CT CHEST Routine 09/19/2023 12:00 AM EST documented in this encounter Results * Film Library- Storage Only CT Chest (09/19/2023 12:00 AM EST) Narrative RAD - 06/30/2024 9:10 PM EDT This exam is auto-finalizing. It's purpose is for storage only. Diane Saldivar MD IMG FILM LIBRARY OR DERABLES [place], [place] documented in this encounter Visit Diagnoses Not on filedocumented in this encounter Care Teams Holistic Nutritionist Relationship Specialty Start Date End Date Gadiel Zavala MD [address] [place] [address] PCP - General 02/09/19 06/29/24 documented as of this encounter
--- OUTSIDE RECORDS SUMMARY | 2024-07-10 15:14 | XMS_ITS | Encounter Summary ---
Author Organization [facility] Address [address] [place] [address] Care Team Providers Care Seismology Technical Officer Name Role Phone Unavailable Primary Care Provider Unavailabl e Encounter Details Date Type Department Care Team (Latest Contact Info) Description 07/22/2007 13:[address] [facility] - Maple conversion [address] [place] [address] Carlos Bullock MD [address] [place] [address] [address] [place] [address] Discharge Disposition: Auto Discharge Social [...]
--- OUTSIDE RECORDS SUMMARY | 2024-07-10 15:14 | XMS_ITS | Encounter Summary ---
Author Organization [facility] Address [address] [place] [address] Care Team Providers Care Technical Delivery Manager Name Role Phone Gadiel Zavala MD Primary Care Provider [phone] Encounter Details Date Type Department Care Team (Late st Contact Info) Description 07/10/2024 Lab Requisition [facility] Pathology & Laboratory Medicine - [address] [address] Outr Resulting Lab, Provider Social History Tobacco Use Types Packs/Day Years Used Date Smoking Tobacco: Never Assessed Sex and Gender Information Value Date Recorded Sex Assigned at Not on file Gender Identity Not on file Sexual Orientation Not on file documented as of this encounter Plan of Treatment Scheduled Orders Name Type Priority Associated Diagnoses Orde r Schedule ALPHA 1 ANTITRYPSIN Lab Routine Order ed: 07/10/2024 documented as of this encounter Visit Diagnoses Not on filedocumented in this encounter Care Teams Technical Delivery Manager Relationship Specialty Start Date End Date Gadiel Zavala MD PCP - General 08/27/15 documented as of this encounter
--- OUTSIDE RECORDS SUMMARY | 2024-07-10 15:14 | XMS_ITS | Encounter Summary ---
Author Organization [facility] Address [address] [place] [address] Care Team Providers Care Extension Supervisor Name Role Phone Unavailable Primary Care Provider Unavailabl e Encounter Details Date Type Department Care Team (Latest Contact Info) Description 07/16/2007 20:14 EDT Hospital Encounter [facility] [address] [place] [address] Carlos Bullock MD [address] [place] [address] [place] [id number] Discharge Disposition: Auto Discharge Social History [...]
--- OUTSIDE RECORDS SUMMARY | 2024-07-10 15:14 | XMS_ITS | Encounter Summary ---
Author Organization [facility] Address [address] [place] [address] Care Team Providers Care R And D Lab Technician Name Role Phone Gadiel Zavala MD Primary Care Provider [phone] Encounter Details Date Type Department Care Team (Late st Contact Info) Description 07/19/2020 Lab Requisition [facility] Pathology & Laboratory Medicine - [address] [id number] Outr Resulting Lab, Provider Social History Tobacco [...] in accordance with CLIA regulations, [employer] (CAP) guidelines (Jan 07, 2020), and FDA guidance (Dec 19, 2019). This test is only for use under the Food and Drug Administration's Emergency Use Authorization. Swab ENTIRE NASOPHARYNX / Unknown 07/19/2020 8:55 EDT 07/19/2020 15:54 EDT Provider Outr Resulting Lab MICROBIOLOGY - GENERAL ORDERABLES [facility] [place], [place] * COVID-19 TESTING (07/19/2020 8:55 EDT) COVID-19 rt-PCR Result NEGATIVE Negative 07/20/2020 13:07 EDT [facility] Comment: 2019-novel Coronavirus (2019-nCoV) [...] in accordance with CLIA regulations, [employer] (CAP) guidelines (Jan 07, 2020), and FDA guidance (Dec 19, 2019). This test is only for use under the Food and Drug Administration's Emergency Use Authorization. Performing Lab [facility] 07/20/2020 13:07 EDT [facility] Swab 07/19/2020 8:55 EDT 07/19/2020 15:54 EDT Provider Outr Resulting Lab MICROBIOLOGY - GENERAL ORDERABLES [facility] [address] [place], [place] [id number] [place] [address] LABORATORY [place], [place] documented in this encounter Visit Diagnoses Not on filedocumented in this encounter Care Teams R And D Lab Technician Relationship Specialty Start Date End Date Gadiel Zavala MD PCP - General 08/27/15 documented as of this encounter
--- OUTSIDE RECORDS SUMMARY | 2024-07-10 15:14 | XMS_ITS | Encounter Summary ---
Author Organization [facility] Address [address] [place] [address] Care Team Providers Care Exercise Equipment Specialist Name Role Phone Gadiel Zavala MD Primary Care Provider [phone] Encounter Details Date Type Department Care Team (Late st Contact Info) Description 04/29/2024 Lab Requisition [facility] Pathology & Laboratory Medicine - [address] [address] Outr Resulting Lab, Provider Social [...] IgE 23 <158 IU/mL 05/05/2024 13:17 EDT [facility] Blood VENOUS BLOOD / Unknown 04/28/2024 14:45 EDT 04/29/2024 17:43 EDT Provider Outr Resulting Lab CHEMISTRY & BLOOD GAS ORDERABLES [facility] [address] [place], [place] [id number] documented in this encounter Visit Diagnoses Not on filedocumented in this encounter Care Teams Exercise Equipment Specialist Relationship Specialty Start Date End Date Gadiel Zavala MD PCP - General 08/27/15 documented as of this encounter
--- OUTSIDE RECORDS SUMMARY | 2024-07-10 15:14 | XMS_ITS | Encounter Summary ---
Author Organization [facility] Address [address] [place] [address] Care Team Providers Care Child And Family Services Specialist Name Role Phone Unavailable Primary Care Provider Unavailabl e Encounter Details Date Type Department Care Team (Late st Contact Info) Description 02/28/2010 Abstract [facility] Plastic, Reconstructive & Cosmetic Surgery - [address], [address] [place], [place] [id number] No Pcp, Social History Tobacco Use Types [...]
--- OUTSIDE RECORDS SUMMARY | 2024-07-10 15:14 | XMS_ITS | Encounter Summary ---
Author Organization [facility] Address [address] [place] [address] Care Team Providers Care Lap Maker Name Role Phone Unavailable Primary Care Provider Unavaildevin e Encounter Details Date Type Department Care Team (Latest Contact Info) Description 06/24/2007 15:58 EDT Hospital Encounter [facility] - Other [address] [place] [address] Carlos Bullock MD [address] [place] [address] [address] [place] [address] Discharge Disposition: Auto Discharge Social [...]
--- OUTSIDE RECORDS SUMMARY | 2024-07-10 15:14 | XMS_ITS | Encounter Summary ---
Author Organization [facility] [place] [address] Care Team Providers Care Interior Design Assistant Name Role Phone Gadiel Zavala MD Primary Care Provider [phone] Encounter Details Date Type Department Care Team (Late st Contact Info) Description 08/17/2022 Ancillary Procedure Radiology Library at [facility] [place] [address] Diane Saldivar MD [address] [place] [address] [place] [address] Social History Tobacco Use Types Packs/Day Years [...] 4:00 PM EDT Office [place] [address] David Lopez MD [facility] [place] [address] documented as of this encounter Procedures Procedure Name Priority Date/Time Associated Diagnosis Comments FILM LIBRARY STORAGE ONLY CT CHEST Routine 08/17/2022 12:00 AM EDT documented in this encounter Results * Film Library- Storage Only CT Chest (08/17/2022 12:00 AM EDT) Narrative [facility] - 06/30/2024 9:08 PM EDT This exam is auto-finalizing. It's purpose is for storage only. Diane Saldivar MD IMG FILM LIBRARY OR DERABLES [place], [place] documented in this encounter Visit Diagnoses Not on filedocumented in this encounter Care Teams Interior Design Assistant Relationship Specialty Start Date End Date Gadiel Zavala MD [address] [place] [id number] PCP - General 02/09/19 06/29/24 documented as of this encounter
[2024-07-13 09:27] LABS: Alpha 1 Antitrypsin,Serum 122 mg/dL (90-200)
== END 2024-07-10 15:07 | disposition home or self-care (01) ==
LOC: LBN 15:06
PROVIDERS: PCP Family Medicine; Visit Provider Internal Medicine
DX: Z14.8 Genetic carrier of other disease (principal); J98.4 Other disorders of lung; J44.9 Chronic obstructive pulmonary disease, unspecified; F17.200 Nicotine dependence, unspecified, uncomplicated; J96.01 Acute respiratory failure with hypoxia; J96.02 Acute respiratory failure with hypercapnia
CPT/HCPCS: 82103

== ENCOUNTER 2024-07-16 13:09 | Emergency (ER) | payer MEDICAID, SELFPAY ==
[2024-07-16] VITALS (32 sets, daily range): BP systolic 99–135; BP diastolic 64–80; PULSE 81–102; RESP 3–35; TEMP 36.2–36.9; O2SAT 90–100
--- NOTE | 2024-07-16 13:00 | RT.EKG_ITS ---
APPROVED REPORT Exam: Resting ECG Reason for Exam: sob Patient Location: E HR:92 bpm ECG Measurements Heart Rate 92 AXIS CA 172 P 87 QRSd 83 QRS 86 QT 358 T 77 QTc 445 Conclusion Sinus rhythm...normal P axis, V-rate 60- 99 Right atrial enlargement...P>0.25mV 2 lds or<-0.24mV aVR/aVL Sinus rhythm normal axis normal intervals
--- NOTE | 2024-07-16 13:30 | DI.RAD_ITS ---
Exam(s) XR CHEST 2V PA LATERAL EXAM: XR CHEST 2V PA LATERAL CLINICAL HISTORY: productive cough. TECHNIQUE: 2D digital imaging was performed. COMPARISON: CR,XR XR PORTABLE CHEST AP from 04/04/2024 FINDINGS: 2 views: Heart size is normal. The mediastinum is not widened. There are advanced COPD emphysematous changes both lung leon again noted as well as bilateral hyper inflation. Faint increased nodular markings are noted in the right upper lobe. Also some scarring left upper lo be. No air bronchograms evident. No pleural effusions. IMPRESSION: COPD emphysematous changes. Bilateral upper lobe increased markings. If clinically indicated follow -up CT scan can be performed DATA REPOSITORY: RADIATION DOSE DELIVERED:
--- NOTE | 2024-07-16 13:44 | W.ED.GENAD ---
Discharge Plan Disposition Patient Disposition: Home Condition: Improving Discharge Details Clinical Impression: COPD with acute exacerbation Primary Care Provider: Darell Ivan ED Provider: Endy Oro Home Meds and New Rx's Prescriptions: New azithromycin 250 mg tablet See Rx Instructions .ROUTE .COMPLEX Qty: 6 0RF Rx Instructions: For 250 mg dose pack: take 500 mg today (day 1), then 250 mg for 4 days (days 2-5) No Action selenium sulfide 2.5 % lotion 1 applic topical DAILY 7 Days Qty: 120 2RF (DME) Oxygen Tank See Rx Instructions .Route Qty: 1 0RF Rx Instructions: As directed acetaminophen [Tylenol] 325 mg capsule 325 mg PO Q6H PRN budesonide 0.5 mg/2 mL suspension for nebulization 0.5 mg inhalation BID 30 Days Qty: 120 12RF fluticasone propion-salmeterol [Advair Diskus] 250-50 mcg/dose blister with device 1 inh Inhalation BID Qty: 60 11RF ipratropium-albuterol 0.5 mg-3 mg(2.5 mg base)/3 mL solution for nebulization 3 ml inhalation QID PRN (Reason: shortness of breath or wheezing) Qty: 90 6RF tiotropium bromide [Spiriva with HandiHaler] 18 mcg capsule, w/inhalation device 1 cap IH DAILY Qty: 30 11RF Rx Instructions: puncture 1 cap using device; one dose = 2 inhalations albuterol sulfate 2.5 mg /3 mL (0.083 %) solution for nebulization 2.5 mg inhalation QID PRN (Reason: shortness of breath or wheezing) Qty: 90 0RF ProAir RespiClick 90 mcg/actuation aerosol powdr breath activated 2 inh inhalation Q6H PRN (Reason: shortness of breath or wheezing) Qty: 1 6RF ibuprofen [Advil] 200 MG tablet 800 mg PO PRN PRN albuterol sulfate 90 mcg/actuation HFA aerosol inhaler 2 puff inhalation 6XD PRNQty: 8.5 0RF Rx Instructions: for wheezing Discharge Instructions Instructions: COPD Exacerbation, Adult ED Additional Instructions: Please follow-up with your primary care physician. Please follow-up with pulmonology. Return to the emergency department for any worsening symptoms HPI General Date/Time Provider Initiated Documentation: 07/16/24 13:30. HPI Narrative: 54-year-old male history of COPD, endorses recent discharge from [facility] where he was found to have multiple pulmonary abnormalities scheduled for biopsy, endorses recurrent respiratory infections and productive cough worsening over the last couple of days Related Data Home Medications ?Medication ?Instructions ?Recorded ?Confirmed ibuprofen 200 mg tablet (Advil) 800 mg PO PRN PRN 03/28/15 07/16/24 selenium sulfide 2.5 % lotion 1 applic topical DAILY 7 days #120 05/21/22 07/16/24 mL albuterol sulfate 90 mcg/actuation 2 puff inhalation 6XD PRN #8.5 04/05/24 07/16/24 aerosol inhaler grams acetaminophen 325 mg capsule 325 mg PO Q6H PRN 04/28/24 07/16/24 (Tylenol) budesonide 0.5 mg/2 mL suspension 0.5 mg (2 mL) inhalation BID 30 04/28/24 07/16/24 for nebulization days #120 mL albuterol sulfate 2.5 mg/3 mL 2.5 mg (3 mL) inhalation QID PRN 05/28/24 07/16/24 (0.083 %) solution for nebulization shortness of breath or wheezing #90 mL albuterol sulfate 90 mcg/actuation 2 inh inhalation Q6H PRN shortness 05/28/24 07/16/24 breath activated powder inhaler of breath or wheezing #1 ea (ProAir RespiClick) fluticasone 250 mcg-salmeterol 50 1 inh inhalation BID #60 ea 05/28/24 07/16/24 mcg/dose blistr powdr for inhalation (Advair Diskus) ipratropium 0.5 mg-albuterol 3 mg 3 ml inhalation QID PRN shortness 05/28/24 07/16/24 (2.5 mg base)/3 mL nebulization of breath or wheezing #90 mL soln tiotropium bromide 18 mcg capsule 1 cap inhalation DAILY #30 05/28/24 07/16/24 with inhalation device (Spiriva inhalations with HandiHaler) Oxygen #1 ea 07/10/24 07/16/24 azithromycin 250 mg tablet See Rx Instructions PO .COMPLEX #6 07/16/24 tabs Previous Rx's ?Medication ?Instructions ?Recorded selenium sulfide 2.5 % lotion 1 applic topical DAILY 7 days #120 05/21/22 mL albuterol sulfate 90 mcg/actuation 2 puff inhalation 6XD PRN #8.5 04/05/24 aerosol inhaler grams budesonide 0.5 mg/2 mL suspension 0.5 mg (2 mL) inhalation BID 30 04/28/24 for nebulization days #120 mL albuterol sulfate 2.5 mg/3 mL 2.5 mg (3 mL) inhalation QID PRN 05/28/24 (0.083 %) solution for nebulization shortness of breath or wheezing #90 mL albuterol sulfate 90 mcg/actuation 2 inh inhalation Q6H PRN shortness 05/28/24 breath activated powder inhaler of breath or wheezing #1 ea (ProAir RespiClick) fluticasone 250 mcg-salmeterol 50 1 inh inhalation BID #60 ea 05/28/24 mcg/dose blistr powdr for inhalation (Advair Diskus) ipratropium 0.5 mg-albuterol 3 mg 3 ml inhalation QID PRN shortness 05/28/24 (2.5 mg base)/3 mL nebulization of breath or wheezing #90 mL soln tiotropium bromide 18 mcg capsule 1 cap inhalation DAILY #30 05/28/24 with inhalation device (Spiriva inhalations with HandiHaler) Oxygen #1 ea 07/10/24 azithromycin 250 mg tablet See Rx Instructions PO .COMPLEX #6 07/16/24 tabs Allergies Allergy/AdvReac Type Severity Reaction Status Date / Time No Known Allergies Allergy Verified 06/16/24 12:52 General Stated Complaint: RespSymp EDILIA: 3 Exam Narrative Exam Narrative: Alert oriented interactive Moist mucous membranes tongue secretions normal voice Lungs clear bilaterally no wheezes rales or rhonchi Normal heart sounds no murmurs rubs or gallops Abdomen soft nontender nondistended Normal previous extremities no peripheral edema Course Vital Signs Vital signs: Vital Signs Temperature 36.9 C 07/16/24 13:10 Pulse 98 H 07/16/24 13:10 Respiratory Rate 26 H 07/16/24 13:10 Blood Pressure 135/73 07/16/24 13:10 Pulse Oximetry 94 07/16/24 13:10 Temperature 36.9 C 07/16/24 13:10 Temperature Source Oral 07/16/24 13:10 Pulse 98 H 07/16/24 13:10 Respiratory Rate 26 H 07/16/24 13:10 Blood Pressure 135/73 07/16/24 13:10 Blood Pressure Position Sitting 07/16/24 13:10 Pulse Oximetry 94 07/16/24 13:10 Oxygen Delivery Method Room Air 07/16/24 13:10 Oxygen Flow Rate 0 07/16/24 13:10 Pain Level 0 07/16/24 13:10 Medical Decision Making 54-year-old male history of COPD, endorses recent discharge from [facility] where he was found to have multiple pulmonary abnormalities scheduled for biopsy, endorses recurrent respiratory infections and productive cough worsening over the last couple of days; afebrile nontoxic nonhypoxic nontachypneic, lungs clear bilaterally no wheezes rales or rhonchi no peripheral edema, consider worsening COPD/COPD exacerbation was also consider pneumonia versus tuberculosis versus pulmonary malignancy versus pleural effusion lower suspicion for pneumothorax. Screening chest x-ray, basic labs, quad furuncle, dexamethasone albuterol/ipratropium, close reassessment 16: 24 patient resting notably feeling much better after nebs and steroid. Patient requesting antibiotics due to productive cough. Will start on azithromycin Quality:SDOH Health Related Social Needs: No Data to Display PFSH All Active Problems (Updated 07/16/24 @ 16:24 by Endy Oro MD) Cavitary lung disease (Acute) Alpha 1-antitrypsin PiMS phenotype (Acute) Stage 4 very severe COPD by GOLD classification (Acute) Chronic hypoxic respiratory failure, on home oxygen therapy (Acute) Pulmonary nodules (Acute) Acute respiratory failure with hypoxia and hypercapnia (Acute) COPD with acute exacerbation (Acute) Asymmetrical sensorineural hearing loss (Acute) Cerumen impaction (Acute) Seborrhea of face (Acute) Normal colonoscopy (Acute) COPD (chronic obstructive pulmonary disease) (Chronic 05/16/15) Most recent PFT: 04/20/15 with postbronchodilator FEV1 of 49% predicted. Diagnosed 04/2015 History of cardiac murmur (Chronic 04/15/15) Diagnosed early 1999s with cardiac workup resulting in determination that murmur was benign, per pt. No murmur appreciated on exam in 2014. Tobacco use disorder (Chronic 04/15/15) Quit in 2016, 30+ pack history Heart murmur (Acute 04/15/15) Hyperlipidemia (Chronic) [place] score 8.3%, started on statin 04/09 Medical History (Updated 07/16/24 @ 16:24 by Endy rOo MD) Severe depression Weight loss, unintentional History of anesthesia reaction Per pt. states when he had his hand surgery at [facility], he was told during the procedure he attempted to get up and walk off the table, and when he awoke he was strapped down to the bed. Tobacco use COPD (chronic obstructive pulmonary disease) Surgical History left hand laceration (05/20/79) 3 surgeries nerve and muscle damage with repair Family History Mother Hepatitis Substance abuse Father , resp failure at age 72. Lung disease Pt not sure exact dx but he was a heavy smoker. Alcohol abuse Social History (Updated 04/07/24 @ 16:54 by Sharon Barrera) Smoking/Tobacco Use Status: Current-Occasional Tobacco: How many years used: 30 Smokeless tobacco user: snus Quit status: has quit before Second Hand Exposure: Yes Smoking risk assessment performed?: Yes Alcohol Intake: current Alcohol Intake frequency: a few times a month Drug use: Occasionally Substance use type: marijuana Adopted: No Caregiver/Support person: No Household members: spouse Housing: house Number of Children: 2 number of grandchildren: 1 Communication Needs: None Education Level: high school Do you need help understanding health information?: Rarely Pets and animals: Yes (5 cats) Pets and animals: cat(s) Sexually active: Yes Do you think of yourself as: straight/heterosexual Current gender identity: male What is your relationship status?: How often do you talk on the phone with friends or family?: decline to answer How often do you get together with friends or relatives?: decline to answer How often do you attend taoism or roman catholic services?: decline to answer Do you belong to any clubs or organized social groups?: no Panel score (0-1 are the most socially isolated patients): 1 What type of physical activity do you participate in: walking Duration: 30-45 minutes/day Frequency: daily Elena/Sabianist: None Seatbelt use: always Helmet use: No (Declined to answer) Drive intox or ride w/intox feeder driver: No Working smoke detector in home: Yes Fire extinguisher in home: Yes Carbon monox detector in home: No Do you feel safe at home: Yes Do you feel safe in your relationship?: Yes
[2024-07-16 14:17] LABS: Abs Immature Grans 0.02 10^3/uL (0.0-0.06); Absolute Basophil Count 0.06 10^3/uL (0.0-0.2); Absolute Eosinophil Count 0.19 10^3/uL (0.0-0.7); Absolute Lymphocyte Count 0.98 10^3/uL (1.2-3.4); Absolute Monocyte Count 0.82 10^3/uL (0.1-0.8); Absolute Neutrophil Count 6.31 10^3/uL (1.2-6.7); Basophils % 0.7 %; Eosinophils % 2.3 %; HCT 46.2 % (40.0-50.0); HGB 15.3 g/dL (13.5-17.5); Immature Grans % 0.2 %; Lymphocytes % 11.7 %; MCH 31.2 pg (27.0-33.0); MCHC 33.1 % (32.0-36.0); MCV 94 fL (80-95); MPV 8.4 fL (8.0-11.0); Monocytes % 9.8 %; Neutrophils % 75.3 %; Platelet Count 289 10^3/uL (130-400); RBC 4.91 10^6/uL (4.36-5.78); RDW 13.4 % (11.8-14.1); RDW-SD 46.8 fL; WBC 8.38 10^3/uL (4.4-10.8)
[2024-07-16] MEDS: Albuterol/Ipratropium 3 ML UPD VIAL UPD (14:20)
[2024-07-16] MEDS: Dexamethasone 10 MG/ML VIAL IVP (14:20)
[2024-07-16 14:40] LABS: ALT 29 U/L (16-63); AST 28 U/L (15-37); Albumin 3.3 g/dL (3.4-5.0); Alkaline Phosphatase 49 U/L (46-116); Anion Gap 4.2 mmol/L (3-11); BUN 13 mg/dL (7-18); Bilirubin, Total 0.41 mg/dL (0.2-1.0); CO2 32.8 mmol/L (21.0-32.0); CREATININE 0.9 mg/dL (0.70-1.30); Calcium 8.9 mg/dL (8.5-10.1); Chloride 98 mmol/L (98-107); Estimated GFR 101.49 (mL/min/1.73m2); Glucose 91 mg/dL (74-106); Potassium 4.2 mmol/L (3.5-5.1); Sodium 135 mmol/L (136-145); Total Protein 7.3 g/dL (6.4-8.2)
[2024-07-20 14:06] LABS: TB Interpretation Negative (Negative)
== END 2024-07-16 17:15 | disposition home or self-care (01) ==
PROVIDERS: Emergency Provider Emergency Medicine; PCP Family Medicine
DX: J44.1 Chronic obstructive pulmonary disease with (acute) exacerbation (principal); F17.200 Nicotine dependence, unspecified, uncomplicated
CPT/HCPCS: 36415; 80053; 93005; 94640; 96374; 99285; 71046; 85025; 86480; 87070; 87205; 93010; 99284; J1100; J7620

== ENCOUNTER 2024-08-10 01:49 | Outpatient (CLI) | payer MEDICAID, SELFPAY ==
--- NOTE | 2024-08-10 07:30 | DI.CT_ITS ---
Exam(s) CT CHEST WO EXAM: CT CHEST WO CLINICAL HISTORY: f/U LYMPH NODULES AND NODULAR OPACITIES,CAVITARY LUNG DISEASE,J98.4. TECHNIQUE: Imaging protocol: Axial computed tomography images were obtained and coronal and sagittal reformatted images were created and reviewed. COMPARISON: CT CT CHEST WO from 09/19/[address] CHEST W from 04/04/2024 FINDINGS: Tracheobronchial tree: Patent where visualized. No bronchiectasis is present. Pulmonary parenchyma: Marked centrilobular emphysematous changes are present. There is increased sca rring seen in the right upper lobe laterally in the left upper lobe. The cavitary in the upper lobes continues to show improvement. No new pulmonary nodules are present. The nodular lesion in the med ial aspect of the left upper lobe is stable in size but does show interval cavitation. No new focal consolidating infiltrates. Mediastinum and Becki: No dominant adenopathy or fluid collection. The esophagus is unremarkable. Thyroid gland: Unremarkable. Pleura: No effusion or pneumothorax. Heart: The heart is not dilated. Coronary artery calcifications are present. No pericardial effusion . Aorta: Thoracic aorta non-dilated. Atherosclerotic calcification is present. Upper abdomen: Unremarkable. Lymph nodes: Within normal limits. Soft tissues: Unremarkable. Bones:Within normal limits for the patient's age. IMPRESSION: 1. No evidence of progression of disease in the chest. Continued slight improvement in the appearanc e of the nodules in the lungs. No new pulmonary nodules. 2. Marked centrilobular emphysema. 3. Resolution of the mediastinal and hilar adenopathy. RADIATION DOSE DELIVERED: 118.25mGy.cm Total DLP 118.25mGy.cm Total DLP DATA REPOSITORY: All CT scans at this facility are submitted to the National Radiology Data Registry (NRDR) Dose Index Registry (DIR) with the [employer] (ACR). RADIATION OPTIMIZATION: All CT scans at this facility use at least one of these dose optimization te chniques: automated exposure control; mA and/or kV adjustment per patient size (includes targeted exa ms where dose is matched to clinical indication); or iterative reconstruction.
== END 2024-08-10 02:09 ==
LOC: DI 01:49
PROVIDERS: PCP Family Medicine; Visit Provider Physician Assistant Surgical
DX: J98.4 Other disorders of lung (principal)
CPT/HCPCS: 71250

== ENCOUNTER 2025-04-10 09:31 | Inpatient (IN) | payer MEDICAID, SELFPAY ==
[2025-04-10] VITALS (80 sets, daily range): BP systolic 97–137; BP diastolic 58–86; PULSE 94–116; RESP 16–38; TEMP 37.1–38.6; O2SAT 87–100
--- NOTE | 2025-04-10 09:30 | DI.RAD_ITS ---
Exam(s) XR PORTABLE CHEST AP EXAM: XR PORTABLE CHEST AP CLINICAL HISTORY: SOB, COPD, Cough, suspect pneumonia TECHNIQUE: 2D digital imaging was performed of the chest. Two images were obtained. AP views were obtained. COMPARISON: CR XR CHEST 2V PA LATERAL from 07/16/2024 FINDINGS: MEDIASTINUM: Normal. HEART: Normal. PULMONARY VASCULATURE: Normal. LUNGS: Lungs are hyperinflated consistent with underlying COPD. No focal consolidating infiltrates are present. PLEURAL SPACE: No pleural effusion or pneumothorax. BONE:Within normal limits for the patient's age. OTHER FINDINGS:Normal. IMPRESSION: No acute pulmonary findings. DATA REPOSITORY: RADIATION DOSE DELIVERED:
--- NOTE | 2025-04-10 09:30 | RT.EKG_ITS ---
APPROVED REPORT Exam: Resting ECG Reason for Exam: SOB Patient Location: E HR:97 bpm ECG Measurements Heart Rate 97 AXIS OR 169 P 88 QRSd 91 QRS 86 QT 340 T 79 QTc 431 Conclusion Pacemaker spikes or artifacts...timing non-diagnostic Sinus rhythm...normal P axis, V-rate 60- 99 Right atrial enlargement...P>0.25mV 2 lds or<-0.24mV aVR/aVL Physician: No STEMI
[2025-04-10] MEDS: Albuterol/Ipratropium 3 ML UPD VIAL UPD ×2 (09:45→10:08)
--- NOTE | 2025-04-10 09:48 | W.ED.GENAD ---
Discharge Plan Disposition Patient Disposition: Admit to [facility] Condition: Improving Discharge Details Clinical Impression: COVID-19, Acute hypoxic respiratory failure, COPD with acute exacerbation, Sepsis Admit Date/Time: 04/10/25 11:18 Admit Provider: Gadiel Ann Attending Provider: Gadiel Ann Primary Care Provider: Darell Ivan ED Provider: Rosalio Rudolph Discharge Data Discharge Date/Time-TO BE ENTERED AT DEPARTURE: 04/10/25 12:27 HPI General Date/Time Provider Initiated Documentation: 04/10/25 09:33. HPI Narrative: 55-year-old male with past medical history of chronic lung disease, alpha-1 antitrypsin deficiency, stage IV severe COPD, chronic pulmonary nodules, high cholesterol, previous tobacco abuse, but now only smoking marijuana, presents today for cough, fever, shortness of breath. Patient on baseline has 3 L of oxygen for when he sleeps, but he does not usually use oxygen when ambulating or doing activities. He states that yesterday he developed cough with productive yellow sputum, fever and chills. He has been using his breathing treatments but these have not been helping. He denies any chest pain but does admit to mild tightness. He denies any history of cardiac disease. He denies any vomiting or diarrhea. No other complaints at this time. No hemoptysis. Related Data Home Medications ?Medication ?Instructions ?Recorded ?Confirmed ibuprofen 200 mg tablet (Advil) 800 mg PO PRN PRN 03/28/15 04/10/25 albuterol sulfate 90 mcg/actuation 2 puff inhalation 6XD PRN #8.5 04/05/24 04/10/25 aerosol inhaler grams acetaminophen 325 mg capsule 325 mg PO Q6H PRN 04/28/24 04/10/25 (Tylenol) budesonide 0.5 mg/2 mL suspension 0.5 mg (2 mL) inhalation BID 30 04/28/24 04/10/25 for nebulization days #120 mL albuterol sulfate 90 mcg/actuation 2 inh inhalation Q6H PRN shortness 05/28/24 04/10/25 breath activated powder inhaler of breath or wheezing #1 ea (ProAir RespiClick) fluticasone 250 mcg-salmeterol 50 1 inh inhalation BID #60 ea 05/28/24 04/10/25 mcg/dose blistr powdr for inhalation (Advair Diskus) tiotropium bromide 18 mcg capsule 1 cap inhalation DAILY #30 05/28/24 04/10/25 with inhalation device (Spiriva inhalations with HandiHaler) Oxygen #1 ea 07/10/24 04/10/25 ipratropium 0.5 mg-albuterol 3 mg 3 ml inhalation Q4H PRN 04/10/25 04/10/25 (2.5 mg base)/3 mL nebulization soln Previous Rx's ?Medication ?Instructions ?Recorded albuterol sulfate 90 mcg/actuation 2 puff inhalation 6XD PRN #8.5 04/05/24 aerosol inhaler grams budesonide 0.5 mg/2 mL suspension 0.5 mg (2 mL) inhalation BID 30 04/28/24 for nebulization days #120 mL albuterol sulfate 90 mcg/actuation 2 inh inhalation Q6H PRN shortness 05/28/24 breath activated powder inhaler of breath or wheezing #1 ea (ProAir RespiClick) fluticasone 250 mcg-salmeterol 50 1 inh inhalation BID #60 ea 05/28/24 mcg/dose blistr powdr for inhalation (Advair Diskus) tiotropium bromide 18 mcg capsule 1 cap inhalation DAILY #30 05/28/24 with inhalation device (Spiriva inhalations with HandiHaler) Oxygen #1 ea 07/10/24 Allergies Allergy/AdvReac Type Severity Reaction Status Date / Time No Known Allergies Allergy Verified 04/10/25 09:49 General Stated Complaint: SOB/SuddenOnset EDILIA: 2 Exam Narrative Exam Narrative: 1.Const: Well-nourished, Well-developed, appearing stated age 2.Eyes: PERRL, no conjunctival injection, and symmetrical lids. 3.ENT: Atraumatic external nose and ears. Moist MM. Neck: Symmetric, trachea midline, No thyromegaly. 4.CVS: +S1/S2, Peripheral pulses 2+ and equal in all extremities. Brisk capillary refill in all extremities. 5.RESP: Diminished lung sounds throughout, minimal wheeze. No crackles. Notable increased work of breathing 6.GI: Soft, Nontender/Nondistended, No hepatosplenomegaly. No guarding or rebound. 7.MSK: Normocephalic/Atraumatic, Extremities w/o deformity or ttp No cyanosis or clubbing, Normal movement of all extremities 8.Skin: Warm, Dry. No rashes or lesions. 9.Neuro: vocational rehabilitation counselor II-XII grossly intact. Sensation grossly intact, no focal neurologic deficits. 10.Psych: (AAO) x3. Appropriate mood and affect Course Vital Signs Vital signs: Vital Signs Temperature 38.6 C H 04/10/25 09:33 Pulse 112 H 04/10/25 09:33 Respiratory Rate 22 04/10/25 09:33 Blood Pressure 111/67 04/10/25 09:33 Pulse Oximetry 87 L 04/10/25 09:33 Temperature 38.6 C H 04/10/25 09:33 Temperature Source Axillary 04/10/25 09:33 Pulse 112 H 04/10/25 09:33 Respiratory Rate 22 04/10/25 09:33 Blood Pressure 111/67 04/10/25 09:33 Blood Pressure Position Sitting 04/10/25 09:33 Pulse Oximetry 95 04/10/25 09:42 Oxygen Delivery Method Nasal Cannula 04/10/25 09:42 Oxygen Flow Rate 1.5 04/10/25 09:42 Pain Level 7 04/10/25 09:33 Comment has used inhalers/nebs and home oxygen without relief uses home oxygen at night and with activity 04/10/25 09:33 Lab/Test Results Lab/Test Results: 04/10/25 09:47 Blood Blood Culture - Pending 04/10/25 09:47 Blood Blood Culture - Pending Medical Decision Making 55-year-old male with past medical history of chronic lung disease, alpha-1 antitrypsin deficiency, stage IV severe COPD, chronic pulmonary nodules, high cholesterol, previous tobacco abuse, but now only smoking marijuana, presents today for cough, fever, shortness of breath. Patient on baseline has 3 L of oxygen for when he sleeps, but he does not usually use oxygen when ambulating or doing activities. He states that yesterday he developed cough with productive yellow sputum, fever and chills. He has been using his breathing treatments but these have not been helping. He denies any chest pain but does admit to mild tightness. He denies any history of cardiac disease. He denies any vomiting or diarrhea. No other complaints at this time. No hemoptysis. Physical exam demonstrates diminished lung sounds, notable increased work of breathing, minimal wheeze. Patient was febrile, hypoxic in the mid 80s on arrival. Tachycardic. Patient meets sepsis criteria and. Will start antibiotics of ceftriaxone and doxycycline. It has been over 1 year since his last hospital admission. Will test for flu COVID and RSV, get a chest x-ray, give steroids and breathing treatments for reactive airway disease component, suspect pneumonia. Will monitor closely and reassess. Will give a liter of IV fluids for hydration. 11:36 AM Chest x-ray read as negative, patient doing well on supplemental oxygen. Breathing rate has improved. Mild white count, patient is COVID-positive, VBG stable. Troponins normal. Ceftriaxone and doxycycline were already given. We will add remdesivir. Discussed the case with the hospitalist, they agree with need for admission. Patient will be admitted for further management. I have extensively reviewed the treatment plan with the patient. I have addressed all patient concerns at this time. I have also discussed the plan with the admitting physician and they agree with the current assessment and plan and have agreed to assume responsibility for the patient. All parties demonstrate verbal understanding and agreement with our assessment and plan at this time. The documentation in this chart was dictated using Blooie dictation software. Please excuse any dictation errors. FINDINGS: MEDIASTINUM: Normal. HEART: Normal. PULMONARY VASCULATURE: Normal. LUNGS: Lungs are hyperinflated consistent with underlying COPD. No focal consolidating infiltrates are present. PLEURAL SPACE: No pleural effusion or pneumothorax. BONE:Within normal limits for the patient's age. OTHER FINDINGS:Normal. IMPRESSION: No acute pulmonary findings. Critical Care Time Critical Care Time Critical Care Time: Yes Total Critical Care Time: 45 Attestation: Upon my evaluation, this patient had a high probability of imminent or life-threatening deterioration, which required my direct attention, intervention, and personal management. I have personally provided 45 minutes of critical care time exclusive of time spent on separately billable procedures. Time includes review of laboratory data, radiology results, discussion with consultants, and monitoring for potential decompensation. Interventions were performed as documented. [facility] All Active Problems (Updated 04/10/25 @ 15:37 by Rosalio Rudolph DO) Sepsis (Acute) COPD with acute exacerbation (Acute) Acute hypoxic respiratory failure (Acute) COVID-19 (Acute) COVID-19 (Acute) Acute hypoxic respiratory failure (Acute) Sepsis without septic shock (Acute) Centriacinar emphysema (Acute) Cavitary lung disease (Acute) Alpha 1-antitrypsin PiMS phenotype (Acute) Stage 4 very severe COPD by GOLD classification (Acute) Chronic hypoxic respiratory failure, on home oxygen therapy (Acute) Pulmonary nodules (Acute) Acute respiratory failure with hypoxia and hypercapnia (Acute) COPD with acute exacerbation (Acute) Asymmetrical sensorineural hearing loss (Acute) Cerumen impaction (Acute) Seborrhea of face (Acute) Normal colonoscopy (Acute) COPD (chronic obstructive pulmonary disease) (Chronic 05/16/15) Most recent PFT: 04/20/15 with postbronchodilator FEV1 of 49% predicted. Diagnosed 04/2015 History of cardiac murmur (Chronic 04/15/15) Diagnosed early with cardiac workup resulting in determination that murmur was benign, per pt. No murmur appreciated on exam in 2014. Tobacco use disorder (Chronic 04/15/15) Quit in 2015, 30+ pack history Heart murmur (Acute 04/15/15) Hyperlipidemia (Chronic) [place] score 8.3%, started on statin 04/09 Medical History (Updated 04/10/25 @ 15:37 by Rosalio Rudolph DO) Severe depression Weight loss, unintentional History of anesthesia reaction Per pt. states when he had his hand surgery at [facility] [place], he was told during the procedure he attempted to get up and walk off the table, and when he awoke he was strapped down to the bed. Tobacco use COPD (chronic obstructive pulmonary disease) Surgical History left hand laceration (05/20/79) 3 surgeries nerve and muscle damage with repair Family History Mother Hepatitis Substance abuse Father , resp failure at age 72. Lung disease Pt not sure exact dx but he was a heavy smoker. Alcohol abuse Social History (Updated 04/07/24 @ 16:54 by Sharon Barrera CMA) Smoking/Tobacco Use Status: Former Tobacco Use Tobacco: How many years used: 30 Smokeless tobacco user: snus Quit status: has quit before Second Hand Exposure: Yes Smoking risk assessment performed?: Yes Alcohol Intake: current Alcohol Intake frequency: a few times a month Drug use: Occasionally Substance use type: marijuana Adopted: No Caregiver/Support person: No Household members: spouse Housing: house Number of Children: 2 number of grandchildren: 1 Communication Needs: None Education Level: high school Do you need help understanding health information?: Rarely Pets and animals: Yes (5 cats) Pets and animals: cat(s) Sexually active: Yes Do you think of yourself as: straight/heterosexual Current gender identity: male What is your relationship status?: How often do you talk on the phone with friends or family?: decline to answer How often do you get together with friends or relatives?: decline to answer How often do you attend anabaptism or scientology services?: decline to answer Do you belong to any clubs or organized social groups?: no Panel score (0-1 are the most socially isolated patients): 1 What type of physical activity do you participate in: walking Duration: 30-45 minutes/day Frequency: daily Elena/Evangelical: None Seatbelt use: always Helmet use: No (Declined to answer) Drive intox or ride w/intox 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
[2025-04-10] MEDS: methylPREDNISolone SUCC 125 MG VIAL IVP (10:14)
[2025-04-10 10:18] LABS: BE (Venous) 4 mmol/L (-2-3); HCO3 (Venous) 29 mmol/L (23-28); Lactate 0.9 mmol/L (<or=2.0); O2 Sat (Venous) 81 %; TCO2 (Venous) 25 mmol/L (24-29); pCO2 (Venous) 44 mmHg (41-51); pH (Venous) 7.42 (7.31-7.41); pO2 (Venous) 42 mmHg
[2025-04-10 10:21] LABS: Abs Immature Grans 0.05 10^3/uL (0.0-0.06); Absolute Basophil Count 0.04 10^3/uL (0.0-0.2); Absolute Eosinophil Count 0.01 10^3/uL (0.0-0.7); Absolute Monocyte Count 0.92 10^3/uL (0.1-0.8); Basophils % 0.3 %; Eosinophils % 0.1 %; HCT 44.7 % (40.0-50.0); HGB 15.1 g/dL (13.5-17.5); Immature Grans % 0.4 %; Lymphocytes % 5.2 %; MCH 30.5 pg (27.0-33.0); MCHC 33.8 % (32.0-36.0); MCV 90 fL (80-95); Monocytes % 7.3 %; Neutrophils % 86.7 %; Platelet Count 258 10^3/uL (130-400); RBC 4.95 10^6/uL (4.36-5.78); RDW 13.3 % (11.8-14.1); RDW-SD 44.4 fL; WBC 12.61 10^3/uL (4.4-10.8)
[2025-04-10 10:22] LABS: Absolute Lymphocyte Count 0.66 10^3/uL (1.2-3.4); Absolute Neutrophil Count 10.93 10^3/uL (1.2-6.7)
[2025-04-10] MEDS: Acetaminophen 500 MG TAB 1000 MG PO (10:34)
[2025-04-10] MEDS: DOXYCYCLINE 100 MG in Normal Saline 100 ML IVPB (10:37)
[2025-04-10 10:39] LABS: ALT 32 U/L (16-63); AST 27 U/L (15-37); Albumin 3.7 g/dL (3.4-5.0); Alkaline Phosphatase 49 U/L (46-116); Anion Gap 8.7 mmol/L (3-11); BUN 12 mg/dL (7-18); Bilirubin, Total 0.6 mg/dL (0.2-1.0); CO2 29.3 mmol/L (21.0-32.0); CREATININE 0.8 mg/dL (0.70-1.30); Calcium 8.8 mg/dL (8.5-10.1); Chloride 99 mmol/L (98-107); Estimated GFR 104.51 (mL/min/1.73m2); Glucose 102 mg/dL (74-106); Sodium 137 mmol/L (136-145); Total Protein 7.4 g/dL (6.4-8.2); Troponin I 6 ng/L (<or=76)
[2025-04-10 10:39] LABS: Influenza A PCR Negative (Negative); Influenza B PCR Negative (Negative); RSV PCR Negative (Negative)
[2025-04-10 10:42] LABS: Source Nasopharynx
[2025-04-10 10:43] LABS: COVID-19 PCR Positive (Negative)
[2025-04-10 10:46] LABS: Procalcitonin < 0.10 ng/mL
[2025-04-10] MEDS: Normal Saline 1,000 ML 1000 ML IV (10:50)
[2025-04-10] MEDS: cefTRIAXone 2 GM/50 ML BAG IVPB (10:57)
--- NOTE | 2025-04-10 11:22 | HPE_ITS ---
Date of service: 04/10/25 Time of Service: 11:22 Assessment and Plan Assessment and plan (1) Sepsis without septic shock: Status: Acute Assessment and plan: Meets criteria for sepsis with tachycardia, tachypnea source respiratory Given ceftriaxone and doxycycline will continue ceftriaxone and azithromycin in the setting of alpha 1 antitrypsin and COVID Blood cultures pending lactic acid normal (2) Acute hypoxic respiratory failure: Status: Acute Assessment and plan: d/t covid pneumonia and copd exacerbation wean oxygen to his baseline as able. (3) COVID-19: Status: Acute Assessment and plan: dexamethasone and remdesivir isolation precautions (4) Chronic hypoxic respiratory failure, on home oxygen therapy: Status: Acute Assessment and plan: see above continue home respiratory inhalers. advair, spiriva and albuterol prn (5) Pulmonary nodules: Status: Acute Assessment and plan: was seen by pulmonary in jun 2024, multiple pulmonary nodules, some cavitary, that were PET/CT positive. He has had 2 negative sputum samples (February and June) negative TB [place] [facility], ? status of that referral (6) Hyperlipidemia: Status: Chronic Assessment and plan: not currently being treated (7) History of cardiac murmur: Status: Chronic Assessment and plan: no murmur appreciated. (8) Tobacco use disorder: Status: Chronic Assessment and plan: quit in [address] Ann History of Present Illness History of Present Illness Chief Complaint: shortness of breath Narrative: This is a 55-year-old male patient past medical history significant for COPD, alpha 1 antitrypsin, cavitary lung lesion, tobacco use who presents to the emergency department with sepsis syndrome found to be in acute hypoxic respiratory failure, positive for COVID with suspected left lower lobe infiltrate. He was treated with steroids, remdesivir, ceftriaxone and doxycycline. He is requiring 3 L nasal cannula to maintain sats in the low 90s. He does wear oxygen at night at home. He has been afebrile. He is eating and drinking bowels and bladder functioning he has had no rashes no chest pain no other complaints. He is being admitted to the hospitalist services for further management and evaluation Review of Systems All systems reviewed & are unremarkable except as noted in HPI and below PFSH All Active Problems (Updated 04/10/25 @ 15:37 by Rosalio Rudolph DO) Sepsis (Acute) COPD with acute exacerbation (Acute) Acute hypoxic respiratory failure (Acute) COVID-19 (Acute) COVID-19 (Acute) Acute hypoxic respiratory failure (Acute) Sepsis without septic shock (Acute) Centriacinar emphysema (Acute) Cavitary lung disease (Acute) Alpha 1-antitrypsin PiMS phenotype (Acute) Stage 4 very severe COPD by GOLD classification (Acute) Chronic hypoxic respiratory failure, on home oxygen therapy (Acute) Pulmonary nodules (Acute) Acute respiratory failure with hypoxia and hypercapnia (Acute) COPD with acute exacerbation (Acute) Asymmetrical sensorineural hearing loss (Acute) Cerumen impaction (Acute) Seborrhea of face (Acute) Normal colonoscopy (Acute) COPD (chronic obstructive pulmonary disease) (Chronic 05/16/15) Most recent PFT: 04/20/15 with postbronchodilator FEV1 of 49% predicted. Diagnosed 04/2015 History of cardiac murmur (Chronic 04/15/15) Diagnosed early with cardiac workup resulting in determination that murmur was benign, per pt. No murmur appreciated on exam in 2014. Tobacco use disorder (Chronic 04/15/15) Quit in 2015, 30+ pack history Heart murmur (Acute 04/15/15) Hyperlipidemia (Chronic) [place] score 8.3%, started on statin 04/09 Medical History (Updated 04/10/25 @ 15:37 by Rosalio Rudolph DO) Severe depression Weight loss, unintentional History of anesthesia reaction Per pt. states when he [place] [facility] was told during the procedure he attempted to get up and walk off the table, and when he awoke he was strapped down to the bed. Tobacco use COPD (chronic obstructive pulmonary disease) Surgical History left hand laceration (05/20/79) 3 surgeries nerve and muscle damage with repair Family History Mother Hepatitis Substance abuse Father , resp failure at age 72. Lung disease Pt not sure exact dx but he was a heavy smoker. Alcohol abuse Social History (Updated 04/07/24 @ 16:54 by Sharon Barrera CMA) Smoking/Tobacco Use Status: Former Tobacco Use Tobacco: How many years used: 30 Smokeless tobacco user: snus Quit status: has quit before Second Hand Exposure: Yes Smoking risk assessment performed?: Yes Alcohol Intake: current Alcohol Intake frequency: a few times a month Drug use: Occasionally Substance use type: marijuana Adopted: No Caregiver/Support person: No Household members: spouse Housing: house Number of Children: 2 number of grandchildren: 1 Communication Needs: None Education Level: high school Do you need help understanding health information?: Rarely Pets and animals: Yes (5 cats) Pets and animals: cat(s) Sexually active: Yes Do you think of yourself as: straight/heterosexual Current gender identity: male What is your relationship status?: How often do you talk on the phone with friends or family?: decline to answer How often do you get together with friends or relatives?: decline to answer How often do you attend temple or orthodox services?: decline to answer Do you belong to any clubs or organized social groups?: no Panel score (0-1 are the most socially isolated patients): 1 What type of physical activity do you participate in: walking Duration: 30-45 minutes/day Frequency: daily Elena/Nondenominational: None Seatbelt use: always Helmet use: No (Declined to answer) Drive 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 Working smoke detector in home: Yes Fire extinguisher in home: Yes Carbon monox detector in home: No Do you feel safe at home: Yes Do you feel safe in your relationship?: Yes Meds Allergies and Home Medications Allergies Allergy/AdvReac Type Severity Reaction Status Date / Time No Known Allergies Allergy Verified 04/10/25 09:49 Home Medications ?Medication ?Instructions ?Recorded ?Confirmed ?Type ibuprofen 200 mg tablet (Advil) 800 mg PO PRN PRN 06/0 06/0404/10/25 History albuterol sulfate 90 mcg/actuation 2 puff inhalation 6 XD PRN #8.5 04/05/24 04/10/25 Rx aerosol inhaler grams acetaminophen 325 mg capsule 325 mg PO Q6H PRN 4 04/10/25 History (Tylenol) budesonide 0.5 mg/2 mL suspension 0.5 mg (2 mL) inhala tion BID 30 04/28/24 04/10/25 Rx for nebulization days #120 mL albuterol sulfate 90 mcg/actuation 2 inh inhalation Q6 H PRN shortness 05/28/24 04/10/25 Rx breath activated powder inhaler of breath or wheezing #1 ea (ProAir RespiClick) fluticasone 250 mcg-salmeterol 50 1 inh inhalation BID #60 ea 05/28/24 04/10/25 Rx mcg/dose blistr powdr for inhalation (Advair Diskus) tiotropium bromide 18 mcg capsule 1 cap inhalation CLAUDE LY #30 05/28/24 04/10/25 Rx with inhalation device (Spiriva inhalations with HandiHaler) Oxygen #1 ea 07/10/24 04/10/25 Rx ipratropium 0.5 mg-albuterol 3 mg 3 ml inhalation Q4H PRN 04/10/25 04/10/25 History (2.5 mg base)/3 mL nebulization soln Exam Narrative Exam Narrative: frail, chronically ill appearing male older than stated age, sitting up in bed eating. head atraumatic, normocephalic. awake alert and oriented no focal deficits. oral mucosa slight dry, neck full range of motion, CV RRR, resp even and unlabored. moves all extremities, no edema. Results Labs 04/10/25 10:09 04/10/25 10:09 Labs: Laboratory Results - last 24 hr 04/10/25 04/10/25 09:55 10:09 WBC 12.61 H RBC 4.95 Hgb 15.1 Hct 44.7 MCV 90 MCH 30.5 MCHC 33.8 RDW 13.3 Plt Count 258 MPV 9.0 Immature Gran % 0.4 Neutrophils % 86.7 Lymphocytes % 5.2 Monocytes % 7.3 Eosinophils % 0.1 Basophils % 0.3 Nucleated RBC % 0.0 Absolute Neutrophils 10.93 H Absolute Lymphocytes 0.66 L Absolute Monocytes 0.92 H Absolute Eosinophils 0.01 Absolute Basophils 0.04 VBG pH 7.42 H VBG pCO2 44 VBG pO2 42 VBG HCO3 29 H VBG Total CO2 25 VBG O2 Saturation 81 VBG Base Excess 4 H VBG Lactate 0.9 Sodium 137 Potassium 4.0 Chloride 99 Carbon Dioxide 29.3 Anion Gap 8.7 BUN 12 Creatinine 0.8 Est GFR (CKD-EPI 2020) 104.51 Glucose 102 Calcium 8.8 Total Bilirubin 0.6 AST 27 ALT 32 Alkaline Phosphatase 49 Troponin I 6 Total Protein 7.4 Albumin 3.7 Procalcitonin < 0.10 COVID-19 Source Nasopharynx SARS-CoV-2 (PCR) Positive A Influenza Type A (PCR) Negative Influenza Type B (PCR) Negative RSV (PCR) Negative Last Vital Signs Temp 38.6 C H 04/10/25 09:33 Pulse 114 H 04/10/25 11:10 Resp 27 H 04/10/25 11:10 BP 102/86 04/10/25 11:09 Pulse Ox 96 04/10/25 11:10 Time Spent Time spent with Patient: 55-74 minutes Time was spent: preparing to see the patient(eg.review tests), obtaining and/or reviewing separately otained hiistory, ordering medications,tests, procedures, indepentently interpreting results and counseling the patient
[2025-04-10 11:36] LABS: Troponin I 7 ng/L (<or=76)
--- NOTE | 2025-04-10 11:53 | W.PC.ACHO ---
Registration Status: REG ER Primary Language: Preferred Language: Luxembourgish ED Information & Data Chief Complaint SOB/SuddenOnset 04/10/25 09:51 Triage Note sudden onset fever, chills, 04/10/25 09:33 and cold symptoms after dinner. states he was up all night. SOB but denies CP. quit smoking a couple years ago. still smokes marijuana. productive cough with yellow phlegm. hospitalized 1 year ago for same. hx emphysema. Medical / Surgical History (Last Reviewed 07/22/20 @ 10:05 by Eagle Swartz) Severe depression Weight loss, unintentional History of anesthesia reaction Tobacco use COPD (chronic obstructive pulmonary disease) (Last Reviewed 07/22/20 @ 10:05 by Eagle Swartz) left hand laceration (05/20/79) Most Recent Vital Signs Temperature 101.5 F H 04/10/25 09:33 Temperature Source Axillary 04/10/25 09:33 Pulse 114 H 04/10/25 11:10 Pulse 114 H 04/10/25 11:10 Respiratory Rate 27 H 04/10/25 11:10 Respiratory Effort Short of Breath, Labored 04/10/25 10:58 Respiratory Depth Shallow 04/10/25 10:58 Respiratory Pattern Tachypnea 04/10/25 10:58 Blood Pressure 102/86 04/10/25 11:09 Blood Pressure Mean 90 04/10/25 11:09 Blood Pressure Position Sitting 04/10/25 09:33 Pulse Oximetry 96 04/10/25 11:10 Oxygen Delivery Method Nasal Cannula 04/10/25 09:42 Oxygen Flow Rate 1.5 04/10/25 09:42 Pain Level 7 04/10/25 10:58 Comment has used inhalers/nebs and home oxygen without relief uses home oxygen at night and with activity 04/10/25 09:33 Allergies No Known Allergies Allergy (Verified 04/10/25 09:49) IV IV Catheter Type [Left Forearm Saline Lock ] IV Catheter Type [Right Saline Lock Forearm] IV Catheter Gauge [Left 18 Forearm] IV Catheter Gauge [Right 18 Forearm] Diagnostics 04/10/25 04/10/25 04/10/25 Range/Units 12:42 11:00 10:09 WBC 12.61 H (4.4-10.8) 10^3/uL RBC 4.95 (4.36-5.78) 10^6/uL Hgb 15.1 (13.5-17.5) g/dL Hct 44.7 (40.0-50.0) % MCV 90 (80-95) fL MCH 30.5 (27.0-33.0) pg MCHC 33.8 (32.0-36.0) % RDW 13.3 (11.8-14.1) % Plt Count 258 (130-400) 10^3/uL MPV 9.0 (8.0-11.0) fL Immature Gran % 0.4 % Neutrophils % 86.7 % Lymphocytes % 5.2 % Monocytes % 7.3 % Eosinophils % 0.1 % Basophils % 0.3 % Nucleated RBC % 0.0 (0.0-0.3) % Absolute Neutrophils 10.93 H (1.2-6.7) 10^3/uL Absolute Lymphocytes 0.66 L (1.2-3.4) 10^3/uL Absolute Monocytes 0.92 H (0.1-0.8) 10^3/uL Absolute Eosinophils 0.01 (0.0-0.7) 10^3/uL Absolute Basophils 0.04 (0.0-0.2) 10^3/uL VBG pH 7.42 H (7.31-7.41) VBG pCO2 44 (41-51) mmHg VBG pO2 42 mmHg VBG HCO3 29 H (23-28) mmol/L VBG Total CO2 25 (24-29) mmol/L VBG O2 Saturation 81 % VBG Base Excess 4 H (-2-3) mmol/L VBG Lactate 0.9 (<or=2.0) mmol/L Sodium 137 (136-145) mmol/L Potassium 4.0 (3.5-5.1) mmol/L Chloride 99 (98-107) mmol/L Carbon Dioxide 29.3 (21.0-32.0) mmol/L Anion Gap 8.7 (3-11) mmol/L BUN 12 (7-18) mg/dL Creatinine 0.8 (0.70-1.30) mg/dL Est GFR (CKD-EPI 2020) 104.51 (mL/min/1.73m2) Glucose 102 (74-106) mg/dL Calcium 8.8 (8.5-10.1) mg/dL Total Bilirubin 0.6 (0.2-1.0) mg/dL AST 27 (15-37) U/L ALT 32 (16-63) U/L Alkaline Phosphatase 49 (46-116) U/L Troponin I Pending 7 6 (<or=76) ng/L Total Protein 7.4 (6.4-8.2) g/dL Albumin 3.7 (3.4-5.0) g/dL Procalcitonin < 0.10 ng/mL COVID-19 Source SARS-CoV-2 (PCR) (Negative) Influenza Type A (PCR) (Negative) Influenza Type B (PCR) (Negative) RSV (PCR) (Negative) 04/10/25 Range/Units 09:55 WBC (4.4-10.8) 10^3/uL RBC (4.36-5.78) 10^6/uL Hgb (13.5-17.5) g/dL Hct (40.0-50.0) % MCV (80-95) fL MCH (27.0-33.0) pg MCHC (32.0-36.0) % RDW (11.8-14.1) % Plt Count (130-400) 10^3/uL MPV (8.0-11.0) fL Immature Gran % % Neutrophils % % Lymphocytes % % Monocytes % % Eosinophils % % Basophils % % Nucleated RBC % (0.0-0.3) % Absolute Neutrophils (1.2-6.7) 10^3/uL Absolute Lymphocytes (1.2-3.4) 10^3/uL Absolute Monocytes (0.1-0.8) 10^3/uL Absolute Eosinophils (0.0-0.7) 10^3/uL Absolute Basophils (0.0-0.2) 10^3/uL VBG pH (7.31-7.41) VBG pCO2 (41-51) mmHg VBG pO2 mmHg VBG HCO3 (23-28) mmol/L VBG Total CO2 (24-29) mmol/L VBG O2 Saturation % VBG Base Excess (-2-3) mmol/L VBG Lactate (<or=2.0) mmol/L Sodium (136-145) mmol/L Potassium (3.5-5.1) mmol/L Chloride (98-107) mmol/L Carbon Dioxide (21.0-32.0) mmol/L Anion Gap (3-11) mmol/L BUN (7-18) mg/dL Creatinine (0.70-1.30) mg/dL Est GFR (CKD-EPI 2020) (mL/min/1.73m2) Glucose (74-106) mg/dL Calcium (8.5-10.1) mg/dL Total Bilirubin (0.2-1.0) mg/dL AST (15-37) U/L ALT (16-63) U/L Alkaline Phosphatase (46-116) U/L Troponin I (<or=76) ng/L Total Protein (6.4-8.2) g/dL Albumin (3.4-5.0) g/dL Procalcitonin ng/mL COVID-19 Source Nasopharynx SARS-CoV-2 (PCR) Positive A (Negative) Influenza Type A (PCR) Negative (Negative) Influenza Type B (PCR) Negative (Negative) RSV (PCR) Negative (Negative) 04/10/25 10:09 Blood Culture - Pending Blood 04/10/25 10:09 Blood Culture - Pending Blood Intake and Output - 24 Hour Total 04/10/25 09:31 thru 04/10/25 11:22 Intake Total 50 Balance 50 Weight 110 lb Intake: IV 50 Falls Risk Assessment History of Falls No History 04/10/25 10:31 Contributing Factors No Factors,Unstable 04/10/25 10:31 Ambulatory Aids Independent 04/10/25 10:31 Tubes/Lines W/no contributing factors 04/10/25 10:31 Gait Evaluation No gait disturbance 04/10/25 10:31 Cognition No cognitive impairment 04/10/25 10:31 Fall Total Score 13 04/10/25 10:31 Level of Risk Standard/Low Risk 04/10/25 10:31 Problems (Last Reviewed 07/22/20 @ 10:05 by Eagle Swartz) COVID-19 (Acute) Acute hypoxic respiratory failure (Acute) Sepsis without septic shock (Acute) Chronic hypoxic respiratory failure, on home oxygen therapy (Acute) Pulmonary nodules (Acute) History of cardiac murmur (Chronic 04/15/15) Tobacco use disorder (Chronic 04/15/15) Hyperlipidemia (Chronic) v v v v v v v v v Sending and/or Receiving Nurses: Please use comment section below to note any information pertinent to the patient hand-off not included above. Information / Comments: Report received from: Nicki Ying RN
[2025-04-10] MEDS: REMDESIVIR 200 MG in Normal Saline 250 ML 250 MG IVPB (14:11)
[2025-04-10] MEDS: Azithromycin 250 MG TAB 500 MG PO (14:11)
[2025-04-10] MEDS: Normal Saline Flush 10 ML SYR IVP (14:11)
[2025-04-10] MEDS: Budesonide/Formoterol 160/4.5 6 GM 60 PUFF INH IH (21:51)
[2025-04-11 06:46] LABS: Abs Immature Grans 0.06 10^3/uL (0.0-0.06); Absolute Lymphocyte Count 0.82 10^3/uL (1.2-3.4); Basophils % 0.2 %; HCT 40.4 % (40.0-50.0); HGB 13.7 g/dL (13.5-17.5); Immature Grans % 0.5 %; Lymphocytes % 6.5 %; MCH 31.3 pg (27.0-33.0); MCHC 33.9 % (32.0-36.0); MCV 92 fL (80-95); MPV 9.1 fL (8.0-11.0); Monocytes % 12.8 %; Platelet Count 234 10^3/uL (130-400); RBC 4.38 10^6/uL (4.36-5.78); RDW 13.3 % (11.8-14.1); RDW-SD 45.4 fL; WBC 12.62 10^3/uL (4.4-10.8)
[2025-04-11 06:49] LABS: Absolute Basophil Count 0.03 10^3/uL (0.0-0.2); Absolute Monocyte Count 1.62 10^3/uL (0.1-0.8)
[2025-04-11 06:57] LABS: Anion Gap 3.9 mmol/L (3-11); BUN 13 mg/dL (7-18); CO2 34.1 mmol/L (21.0-32.0); CREATININE 0.8 mg/dL (0.70-1.30); Calcium 8.7 mg/dL (8.5-10.1); Chloride 102 mmol/L (98-107); Estimated GFR 104.51 (mL/min/1.73m2); Glucose 103 mg/dL (74-106); Potassium 4.3 mmol/L (3.5-5.1); Sodium 140 mmol/L (136-145)
[2025-04-11 07:04] LABS: Diff Comment Diff Reviewed; RBC Morphology Normal
[2025-04-11 08:08] VITALS: BP 104/72; PULSE 70; RESP 18; TEMP 36.8; O2SAT 93
[2025-04-11] MEDS: Normal Saline Flush 10 ML SYR IVP ×2 (08:10→21:08)
[2025-04-11] MEDS: Dexamethasone 4 MG TAB 6 MG PO (08:10)
[2025-04-11] MEDS: Azithromycin 250 MG TAB 500 MG PO (08:10)
[2025-04-11] MEDS: Acetaminophen 325 MG TAB 650 MG PO (08:11)
[2025-04-11] MEDS: Budesonide/Formoterol 160/4.5 6 GM 60 PUFF INH IH ×2 (09:30→20:48)
[2025-04-11] MEDS: Tiotropium Bromide-Respimat 10 PUFF INH 2 PUFF IH (09:31)
--- NOTE | 2025-04-11 09:35 | INITIAL_ITS ---
Date of service: 04/11/25 Time of Service: 09:35 Care Management Initial Assmt Initial Assessment Reason for Hospitalization: covid, resp fail Functional Status/Living Situation Patient Presentation: Juancho was admitted with respiratory failure and Covid . He is appropriately isolated for the Covid so CM was unable to meet with him in person. CM was able to speak to Juancho on the phone however and gathered necessary information. Juancho informed CM that he lives in [place] with his [place]a. He noted that his mailing address is [facility] however his physical address is [place]. Juancho has 2 adult sons. One just moved back home this week and the other is in [facility]. Juancho stated that they are a very close family. Juancho has been on disability since 2019 secondary to his pulmonary disease. He is oxygen dependent and should wear O2 all of the time per his PCP, however he generally only uses 3L/min at night. Juancho stated that he needs a portable tank as his is too cumbersome to drag christiano und, but stated he does not qualify. CM encouraged Juancho to discuss this with RT. CM will make a referral to [employer] to see if any funds are available to privately pay for the portable unit. Town of Residence: [facility] Resides with: Spouse ( Alyssa) Significant Other/Family: Local Employment Status: Disabled Instrumental Activities of Daily Living (ADLs): Independent Medications Medication Management: No Issues/Barriers identified Physical Functioning/Mobility Assistive Device: uses a cane Advance Directives Advance Directives: Do you have an Advance Directive: N , 15:43 AD On File at [facility]: N 07/20/24, 15:43 Date Asked 04/10/25 04/10/25, 10:47 AD Date Reviewed COLST On File at [facility] COLST Date Scanned Code Status Resuscitation Status Full Code Portal Pt does not currently have a portal and education provided: Yes Insurance Coverage/Financial Issues Insurance: Medicaid Care Team Visit Care Team Role Provider Type Darell Ivan, Primary Care Provider OSTEOPATHIC DOCTOR Rosalio Rudolph, DO Emergency Provider [facility] STAFF PHYSICIAN Gadiel Ann Admit Provider [facility] STAFF PHYSICIAN Attending Provider Discharge Potential Discharge Needs: PCP F/U Appt Anticipated Barriers to Discharge: None Identified Patient/Family Education Needs: Review discharge instructions, discuss Ask Me Three Transportation: Private vehicle Plan: Anticipate Juancho will be discharged home with no new services when medically cleared. He will follow up with his PCP and plan of care and transport with family. CM will follow and continue to support discharge planning efforts, Social Determinants of Health Screening Social Determinants of health last assessed in clinic: 04/11/25 Will the Patient Participate in the Screening?: Yes Do you worry about having a steady place to live?: no Problems where you live: no known problems In the past 12 months, have you had to go without electric, gas, oil or water in your home?: no 1. Within the past 12 months, we worried whether our food would run out before we got money to buy more.: Never true 2. Within the past 12 months, the food we bought just didn't last and we didn't have money to get more.: Never true Has lack of transportation kept you from medical appointments or from doing things needed for daily living?: no Has anyone in your life made you feel unsafe or unsupported?: no How hard is it for you to pay for the very basics like food, housing, medical care, and heating? Would you say it is:: Not hard at all Do you want help finding or keeping work or a job?: I do not need or want help If for any reason you need help with day-to-day activities such as bathing, preparing meals, shopping, managing finances, etc., do you get the help you need?: I don?t need any help How often do you feel lonely or isolated from those around you?: Never Do you speak a language other than Azeri at home?: No Does the patient want assistance with any of the above?: No PFSH All Active Problems (Updated 04/10/25 @ 15:37 by Rosalio Rudolph DO) Sepsis (Acute) COPD with acute exacerbation (Acute) Acute hypoxic respiratory failure (Acute) COVID-19 (Acute) COVID-19 (Acute) Acute hypoxic respiratory failure (Acute) Sepsis without septic shock (Acute) Centriacinar emphysema (Acute) Cavitary lung disease (Acute) Alpha 1-antitrypsin PiMS phenotype (Acute) Stage 4 very severe COPD by GOLD classification (Acute) Chronic hypoxic respiratory failure, on home oxygen therapy (Acute) Pulmonary nodules (Acute) Acute respiratory failure with hypoxia and hypercapnia (Acute) COPD with acute exacerbation (Acute) Asymmetrical sensorineural hearing loss (Acute) Cerumen impaction (Acute) Seborrhea of face (Acute) Normal colonoscopy (Acute) COPD (chronic obstructive pulmonary disease) (Chronic 05/16/15) Most recent PFT: 04/20/15 with postbronchodilator FEV1 of 49% predicted. Diagnosed 04/2015 History of cardiac murmur (Chronic 04/15/15) Diagnosed early with cardiac workup resulting in determination that murmur was benign, per pt. No murmur appreciated on exam in 2014. Tobacco use disorder (Chronic 04/15/15) Quit in 2016, 30+ pack history Heart murmur (Acute 04/15/15) Hyperlipidemia (Chronic) [place] score 8.3%, started on statin 04/09 Medical History (Updated 04/10/25 @ 15:37 by Rosalio Rudolph DO) Severe depression Weight loss, unintentional History of anesthesia reaction Per pt. states when he had his hand surgery at [facility], he was told during the procedure he attempted to get up and walk off the table, and when he awoke he was strapped down to the bed. Tobacco use COPD (chronic obstructive pulmonary disease) Surgical History left hand laceration (05/20/79) 3 surgeries nerve and muscle damage with repair Family History Mother Hepatitis Substance abuse Father , resp failure at age 72. Lung disease Pt not sure exact dx but he was a heavy smoker. Alcohol abuse Social History (Updated 04/07/24 @ 16:54 by Sharon Barrera CMA) Smoking/Tobacco Use Status: Former Tobacco Use Tobacco: How many years used: 30 Smokeless tobacco user: snus Quit status: has quit before Second Hand Exposure: Yes Smoking risk assessment performed?: Yes Alcohol Intake: current Alcohol Intake frequency: a few times a month Drug use: Occasionally Substance use type: marijuana Adopted: No Caregiver/Support person: No Household members: spouse Housing: house Number of Children: 2 number of grandchildren: 1 Communication Needs: None Education Level: high school Do you need help understanding health information?: Rarely Pets and animals: Yes (5 cats) Pets and animals: cat(s) Sexually active: Yes Do you think of yourself as: straight/heterosexual Current gender identity: male What is your relationship status?: How often do you talk on the phone with friends or family?: decline to answer How often do you get together with friends or relatives?: decline to answer How often do you attend quaker or druze services?: decline to answer Do you belong to any clubs or organized social groups?: no Panel score (0-1 are the most socially isolated patients): 1 What type of physical activity do you participate in: walking Duration: 30-45 minutes/day Frequency: daily Elena/Worship: None Seatbelt use: always Helmet use: No (Declined to answer) Drive intox or ride w/intox ross carrier driver: No Working smoke detector in home: Yes Fire extinguisher in home: Yes Carbon monox detector in home: No Do you feel safe at home: Yes Do you feel safe in your relationship?: Yes
[2025-04-11] MEDS: cefTRIAXone 2 GM/50 ML BAG IVPB (09:46)
[2025-04-11 10:32] VITALS: PULSE 74; RESP 18; O2SAT 93
[2025-04-11] MEDS: REMDESIVIR 100 MG in Normal Saline 250 ML 250 MG IVPB (10:32)
--- NOTE | 2025-04-11 11:07 | W.PM.PROGNOT ---
Date of Service Date of service: 04/11/25 Time of Service: 11:07 Assessment and Plan Assessment and plan (1) Sepsis without septic shock: Status: Acute Assessment and plan: Meets criteria for sepsis with tachycardia, tachypnea source respiratory continue ceftriaxone and azithromycin day 2 of 5 in the setting of alpha 1 antitrypsin and COVID Blood cultures pending lactic acid normal (2) Acute hypoxic respiratory failure: Status: Resolved Assessment and plan: d/t covid pneumonia and copd exacerbation Continue ceftriaxone and azithromycin day 2 of 5 Has been weaned off oxygen (3) COVID-19: Status: Acute Assessment and plan: Continue dexamethasone and remdesivir while hospitalized isolation precautions (4) Chronic hypoxic respiratory failure, on home oxygen therapy: Status: Acute Assessment and plan: see above continue home respiratory inhalers. advair, spiriva and albuterol prn (5) Pulmonary nodules: Status: Acute Assessment and plan: was seen by pulmonary in jun 2024, multiple pulmonary nodules, some cavitary, that were PET/CT positive. He has had 2 negative sputum samples (February and June) negative TB was referred to [facility] for broch/EBUS, ? status of that referral (6) Hyperlipidemia: Status: Chronic Assessment and plan: not currently being treated (7) History of cardiac murmur: Status: Chronic Assessment and plan: no murmur appreciated. (8) Tobacco use disorder: Status: Chronic Assessment and plan: quit in 2015 anticipate discharge to home tomorrow if remains medically stable. discussed with DR Ann Subjective Subjective Patient reports: feels better, tolerating liquids well, tolerating a regular diet, bowel movement and afebrile; denies shortness of breath Interval history since last seen: non productive cough Exam Narrative Exam Narrative: thin male appearing male older than stated age, in no acute distress. head atraumatic, normocephalic. awake alert and oriented no focal deficits. oral mucosa slight dry, neck full range of motion, CV RRR, resp even and unlabored. no wheezing, scattered coarse breath sounds, moves all extremities, no edema. psychiatric appropriate mood and affect Objective Last Vital Signs Temp 36.8 C 04/11/25 08:08 Pulse 74 04/11/25 10:32 Resp 18 04/11/25 10:32 BP 104/72 04/11/25 08:08 Pulse Ox 93 04/11/25 10:32 Laboratory Results - last 24 hr 04/10/25 04/10/25 04/11/25 11:00 12:42 06:25 WBC 12.62 H RBC 4.38 Hgb 13.7 Hct 40.4 MCV 92 MCH 31.3 MCHC 33.9 RDW 13.3 Plt Count 234 MPV 9.1 Immature Gran % 0.5 Neutrophils % 80.0 Lymphocytes % 6.5 Monocytes % 12.8 Eosinophils % 0.0 Basophils % 0.2 Nucleated RBC % 0.0 Absolute Neutrophils 10.10 H Absolute Lymphocytes 0.82 L Absolute Monocytes 1.62 H Absolute Eosinophils 0.00 Absolute Basophils 0.03 RBC Morphology Normal Sodium 140 Potassium 4.3 Chloride 102 Carbon Dioxide 34.1 H Anion Gap 3.9 BUN 13 Creatinine 0.8 Est GFR (CKD-EPI 2020) 104.51 Glucose 103 Calcium 8.7 Troponin I 7 Cancelled Time Spent with Patient Time Spent with Patient: 35-49 minutes Time was spent: preparing to see the patient(eg.review tests), obtaining and/or reviewing separately otained hiistory, ordering medications,tests, procedures, indepentently interpreting results and counseling the patient
[2025-04-12 07:19] LABS: Abs Immature Grans 0.04 10^3/uL (0.0-0.06); Absolute Basophil Count 0.02 10^3/uL (0.0-0.2); Absolute Eosinophil Count 0.01 10^3/uL (0.0-0.7); Absolute Lymphocyte Count 1.18 10^3/uL (1.2-3.4); Absolute Monocyte Count 1.14 10^3/uL (0.1-0.8); Absolute Neutrophil Count 8.96 10^3/uL (1.2-6.7); Basophils % 0.2 %; Eosinophils % 0.1 %; HCT 42.5 % (40.0-50.0); HGB 14.8 g/dL (13.5-17.5); Immature Grans % 0.4 %; Lymphocytes % 10.4 %; MCH 31.6 pg (27.0-33.0); MCHC 34.8 % (32.0-36.0); MCV 91 fL (80-95); Neutrophils % 78.9 %; Platelet Count 289 10^3/uL (130-400); RBC 4.69 10^6/uL (4.36-5.78); RDW 13.2 % (11.8-14.1); RDW-SD 44.3 fL; WBC 11.35 10^3/uL (4.4-10.8)
[2025-04-12 07:46] LABS: Anion Gap 6.4 mmol/L (3-11); BUN 16 mg/dL (7-18); CO2 30.6 mmol/L (21.0-32.0); CREATININE 0.6 mg/dL (0.70-1.30); Calcium 8.8 mg/dL (8.5-10.1); Chloride 102 mmol/L (98-107); Glucose 98 mg/dL (74-106); Potassium 3.8 mmol/L (3.5-5.1); Sodium 139 mmol/L (136-145)
[2025-04-12] MEDS: Dexamethasone 4 MG TAB 6 MG PO (07:48)
[2025-04-12] MEDS: Normal Saline Flush 10 ML SYR IVP (07:49)
[2025-04-12] MEDS: Azithromycin 250 MG TAB 500 MG PO (07:49)
[2025-04-12 07:57] VITALS: BP 103/65; PULSE 64; RESP 16; TEMP 37.2; O2SAT 94
[2025-04-12] MEDS: Polyethylene Glycol 3350 17 GM PACKET PO (08:10)
[2025-04-12] MEDS: Tiotropium Bromide-Respimat 10 PUFF INH 2 PUFF IH (08:41)
[2025-04-12 08:42] VITALS: O2SAT 94
[2025-04-12] MEDS: Budesonide/Formoterol 160/4.5 6 GM 60 PUFF INH IH (08:42)
[2025-04-12] MEDS: cefTRIAXone 2 GM/50 ML BAG IVPB (10:23)
--- NOTE | 2025-04-12 11:32 | PDOC.CMDIS ---
Date of service: 04/12/25 Time of Service: 11:32 LACE Index Scoring Tool Questions: Length of Stay (in days): 2 Was the patient admitted via the E.D.?: Yes Comorbidities: Chronic Pulmonary Disease E.D. Visits: 1 Answers: Total Score: 8 Risk of Readmission: Low Risk Care Management Discharge Plan Reason for Hospitalization: Sepsis without shock, hypoxic resp failure, covid Discharge Plan: Juancho will be discharged home with no new services today. He will follow up with his PCP and plan of care. Juancho will transport with family. Patient/Family Education Needs: Review of discharge instructions, activity and limitations. Discuss Ask Me Three.
[2025-04-12] MEDS: REMDESIVIR 100 MG in Normal Saline 250 ML 250 MG IVPB (11:40)
--- NOTE | 2025-04-12 14:57 | DSE_ITS ---
Date of service: 04/12/25 Time of Service: 14:57 DS: Diagnosis Discharge Diagnosis (1) Sepsis without septic shock: Status: Acute (2) Acute hypoxic respiratory failure: Status: Resolved (3) COVID-19: Status: Acute (4) Chronic hypoxic respiratory failure, on home oxygen therapy: Status: Acute (5) Pulmonary nodules: Status: Acute (6) Hyperlipidemia: Status: Chronic (7) History of cardiac murmur: Status: Chronic (8) Tobacco use disorder: Status: Chronic Discharge Plan Disposition Patient Disposition: Home Condition: Improving Discharge Details Reason For Visit: sepsis without shock, hypoxic resp failure, covid Admit Date/Time: 04/10/25 11:18 Admit Provider: Gadiel Ann Attending Provider: Gadiel Ann Primary Care Provider: Darell Ivan [facility] Course Hospital Course: This 55-year-old male patient past medical history significant for COPD, alpha 1 antitrypsin, cavitary lung lesion, tobacco use who presented to the emergency department on 04/10/25 with sepsis syndrome found to be in acute hypoxic r espiratory failure, afebrile, positive for COVID with suspected left lower lobe infiltrate. He was treated with steroids, remdesivir, ceftriaxone and doxycycline. He required continuous 3 L nasal cannula to maintain sats in the low 90s; at home the patient only wears oxygen at night. The patient was admitted for acute on chronic hypoxic respiratory failure in the setting of COVID pneumonia the the medical surgical floor for ongoing treatment. The patient was treated with remdesivir, dexamethasone, azithromycin and ceftriaxone resulting in return to basline oxygen needs remaining afebrile and hemodynamycally stable. The patient will be discharged home on azithromycin and cefpodoxime with follow-up with PCP within 7 days of discharge. Discussed with Dr. Ann Home Meds and New Rx's Prescriptions: New acetaminophen 325 mg Tablet 650 mg PO Q6H PRNQty: 40 0RF azithromycin 250 mg Tablet 500 mg PO DAILY Qty: 4 0RF cefpodoxime 200 mg tablet 200 mg PO BID Qty: 4 0RF Rx Instructions: must administer with a meal/food Continued (DME) Oxygen Tank See Rx Instructions .Route Qty: 1 0RF Rx Instructions: As directed budesonide 0.5 mg/2 mL suspension for nebulization 0.5 mg inhalation BID 30 Days Qty: 120 12RF fluticasone propion-salmeterol [Advair Diskus] 250-50 mcg/dose blister with device 1 inh Inhalation BID Qty: 60 11RF tiotropium bromide [Spiriva with HandiHaler] 18 mcg capsule, w/inhalation device 1 cap IH DAILY Qty: 30 11RF Rx Instructions: puncture 1 cap using device; one dose = 2 inhalations ProAir RespiClick 90 mcg/actuation aerosol powdr breath activated 2 inh inhalation Q6H PRN (Reason: shortness of breath or wheezing) Qty: 1 6RF ibuprofen [Advil] 200 MG tablet 800 mg PO PRN PRN ipratropium-albuterol 0.5 mg-3 mg(2.5 mg base)/3 mL solution for nebulization 3 ml inhalation Q4H PRN albuterol sulfate 90 mcg/actuation HFA aerosol inhaler 2 puff inhalation 6XD PRNQty: 8.5 0RF Rx Instructions: for wheezing Discontinued acetaminophen [Tylenol] 325 mg capsule 325 mg PO Q6H PRN Discharge Instructions Referrals: Darell Ivan DO [Primary Care Provider, Medicine] Referral Note: Follow-up with 7 days of discharge please Activity:: Activity as Tolerated Equipment/Supplies:: home oxygen already estab Diet:: heart healthy Discharge Orders Discharge Orders: Discharge Order (Routine); Ordered 04/12/25 Ordered By: Maureen Johns DS: Summary Time Spent with Patient providing and/or coordinating discharge services: Greater than 30 minutes Status at Discharge Functional status at discharge: uses cane/walker Overall status at discharge: patient is progressing back to baseline Mental Status: mental status grossly normal Speech and Movement: speech and movement normal Mood: congruent mood Affect: normal affect Exam Narrative Exam Narrative: 55 yo cachectic appearing male patient looking older than stated age, in no acute distress, ambulating in room, awake alert and oriented w/o neurological focal deficits, unlabored breathing, no wheezing, ronchi clearing with cough, S1, S2 regular , moves all extremities, congruent mood and affect Psych Mental Status: mental status grossly normal Speech and Movement: speech and movement normal Mood: congruent mood Affect: normal affect DS: Data Vitals/I&O Vitals and I&O: Vital Signs Temperature 37.2 C 04/12/25 07:57 Temperature Source Temporal Artery Scan 04/12/25 07:57 Pulse 64 04/12/25 07:57 Pulse Rhythm Regular 04/10/25 12:41 Pulse 103 H 04/10/25 12:20 Respiratory Rate 16 04/12/25 07:57 Respiratory Effort Short of Breath, Labored, Incrsd Work of Breathing 04/10/25 12:41 Respiratory Depth Shallow 04/10/25 12:41 Respiratory Pattern Tachypnea 04/10/25 12:41 Blood Pressure 103/65 04/12/25 07:57 Blood Pressure Mean 77 04/12/25 07:57 Blood Pressure Position Sitting 04/10/25 09:33 Pulse Oximetry 94 04/12/25 08:42 Oxygen Delivery Method Room Air 04/12/25 08:42 Oxygen Flow Rate 0 04/12/25 08:42 Pain Level 1 04/11/25 08:11 Comment has used inhalers/nebs and home oxygen without relief uses home oxygen at night and with activity 04/10/25 09:33 Intake & Output 04/11/25 04/12/25 04/12/25 23:59 11:59 23:59 Intake Total 500 / 1050 120 / 120 Balance 500 / 550 120 / 120 Intake: Oral 500 / 750 120 / 120 Other: Urine Color Yellow Data Completed and Pending Labs on day of discharge: Labs from last 24 hours 04/12/25 07:00 WBC 11.35 H RBC 4.69 Hgb 14.8 Hct 42.5 MCV 91 MCH 31.6 MCHC 34.8 RDW 13.2 Plt Count 289 MPV 9.0 Immature Gran % 0.4 Neutrophils % 78.9 Lymphocytes % 10.4 Monocytes % 10.0 Eosinophils % 0.1 Basophils % 0.2 Nucleated RBC % 0.0 Absolute Neutrophils 8.96 H Absolute Lymphocytes 1.18 L Absolute Monocytes 1.14 H Absolute Eosinophils 0.01 Absolute Basophils 0.02 Sodium 139 Potassium 3.8 Chloride 102 Carbon Dioxide 30.6 Anion Gap 6.4 BUN 16 Creatinine 0.6 L Est GFR (CKD-EPI 2020) 114.00 Glucose 98 Calcium 8.8 Preliminary micro results at discharge 04/10/25 10:09 Blood Blood Culture - Preliminary NO GROWTH 48 HOURS 04/10/25 10:09 Blood Blood Culture - Preliminary NO GROWTH 48 HOURS PFSH All Active Problems (Updated 04/11/25 @ 17:13 by Justine Spencer NP) Sepsis (Acute) COPD with acute exacerbation (Acute) Acute hypoxic respiratory failure (Acute) COVID-19 (Acute) COVID-19 (Acute) Sepsis without septic shock (Acute) Centriacinar emphysema (Acute) Cavitary lung disease (Acute) Alpha 1-antitrypsin PiMS phenotype (Acute) Stage 4 very severe COPD by GOLD classification (Acute) Chronic hypoxic respiratory failure, on home oxygen therapy (Acute) Pulmonary nodules (Acute) Acute respiratory failure with hypoxia and hypercapnia (Acute) COPD with acute exacerbation (Acute) Asymmetrical sensorineural hearing loss (Acute) Cerumen impaction (Acute) Seborrhea of face (Acute) Normal colonoscopy (Acute) COPD (chronic obstructive pulmonary disease) (Chronic 05/16/15) Most recent PFT: 04/20/15 with postbronchodilator FEV1 of 49% predicted. Diagnosed 04/2015 History of cardiac murmur (Chronic 04/15/15) Diagnosed early with cardiac workup resulting in determination that murmur was benign, per pt. No murmur appreciated on exam in 2014. Tobacco use disorder (Chronic 04/15/15) Quit in 2015, 30+ pack history Heart murmur (Acute 04/15/15) Hyperlipidemia (Chronic) Mongo score 8.3%, started on statin 04/09 Medical History (Updated 04/11/25 @ 17:13 by Justine Spencer NP) Severe depression Weight loss, unintentional History of anesthesia reaction Per pt. states when he had his hand surgery at [facility] [place], he was told during the procedure he attempted to get up and walk off the table, and when he awoke he was strapped down to the bed. Tobacco use COPD (chronic obstructive pulmonary disease) Surgical History left hand laceration (05/20/79) 3 surgeries nerve and muscle damage with repair Family History Mother Hepatitis Substance abuse Father , resp failure at age 72. Lung disease Pt not sure exact dx but he was a heavy smoker. Alcohol abuse Social History (Updated 04/07/24 @ 16:54 by Sharon Barrera CMA) Smoking/Tobacco Use Status: Former Tobacco Use Tobacco: How many years used: 30 Smokeless tobacco user: snus Quit status: has quit before Second Hand Exposure: Yes Smoking risk assessment performed?: Yes Alcohol Intake: current Alcohol Intake frequency: a few times a month Drug use: Occasionally Substance use type: marijuana Adopted: No Caregiver/Support person: No Household members: spouse Housing: house Number of Children: 2 number of grandchildren: 1 Communication Needs: None Education Level: high school Do you need help understanding health information?: Rarely Pets and animals: Yes (5 cats) Pets and animals: cat(s) Sexually active: Yes Do you think of yourself as: straight/heterosexual Current gender identity: male What is your relationship status?: How often do you talk on the phone with friends or family?: decline to answer How often do you get together with friends or relatives?: decline to answer How often do you attend taoism or congregational services?: decline to answer Do you belong to any clubs or organized social groups?: no Panel score (0-1 are the most socially isolated patients): 1 What type of physical activity do you participate in: walking Duration: 30-45 minutes/day Frequency: daily Elena/Denominational: None Seatbelt use: always Helmet use: No (Declined to answer) Drive intox 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
== END 2025-04-12 16:16 | disposition home or self-care (01) | DRG 871 ==
LOC: ER 11:45 → MS 12:28
PROVIDERS: Nurse Practitioner Acute Care; Admitting Provider Family Medicine; Emergency Provider Student in an Organized Health Care Education/Training Program; PCP Family Medicine; Responsible Provider Nurse Practitioner Acute Care; Visit Provider Family Medicine
DX: A41.9 Sepsis, unspecified organism (principal); J12.82 Pneumonia due to coronavirus disease 2019; U07.1 COVID-19; J44.1 Chronic obstructive pulmonary disease with (acute) exacerbation; J44.0 Chronic obstructive pulmonary disease with (acute) lower respiratory infection; J96.11 Chronic respiratory failure with hypoxia; E88.01 Alpha-1-antitrypsin deficiency; Z99.81 Dependence on supplemental oxygen; R91.8 Other nonspecific abnormal finding of lung field; Z87.891 Personal history of nicotine dependence
CPT/HCPCS: 00123; 36415; 80048; 80053; 82805; 84145; 87040; 87637; 93005; 94640; 96365; 96375; 99291; 71045; 83605; 84484; 85025; 93010; 94664; 94760; 99223; 99233; 99239; J0248; J0696; J2919; J7620; J8540